=== PATIENT | female | born 1940 | race Caucasian/White ===

== ENCOUNTER 2016-10-28 13:50 | Inpatient (IN) | payer MEDICARE ==
[~2016-10-28] VITALS: Ht 158.8 cm; Wt 121.0 kg
[2016-10-29] MEDS ORDERED: ISOS30TA3 PO (14:31)
[2016-10-29] MEDS ORDERED: TEMA30CA PO (14:31)
[2016-10-29] MEDS ORDERED: GABA100C4 PO (14:31)
[2016-10-29] MEDS ORDERED: OMEG1CAP28 PO (14:31)
[2016-10-29] MEDS ORDERED: METO100T PO (14:31)
[2016-10-29] MEDS ORDERED: OXYB5TAB10 PO (14:31)
[2016-10-29] MEDS ORDERED: FLUO20CA4 PO (14:31)
[2016-10-29] MEDS ORDERED: NITR1SUB3 SL (14:31)
[2016-10-29] MEDS ORDERED: SACC1CAP3 PO (14:31)
[2016-10-29] MEDS ORDERED: ESTR1TAB PO (14:31)
[2016-10-29] MEDS ORDERED: METH1TAB2 PO (14:31)
[2016-10-29] MEDS ORDERED: PANT40TA3 PO (14:31)
[2016-10-29] MEDS ORDERED: CLON0.5T PO (14:31)
[2016-10-29] MEDS ORDERED: SIMV40TA PO (14:31)
[2016-10-29] MEDS ORDERED: HYDR-3583 PO (14:31)
[2016-10-29] MEDS ORDERED: LISI20TA3 PO (14:31)
[2016-10-29] MEDS ORDERED: VITA100T PO (14:37)
[2016-10-29] MEDS ORDERED: UBIQ1CAP4 PO (14:37)
[2016-10-29] MEDS ORDERED: MULT-135 PO (14:37)
[2016-10-29] MEDS ORDERED: GLUCTAB6 PO (14:37)
[2016-10-29] MEDS ORDERED: VITA400C5 PO (14:37)
[2016-10-29] MEDS ORDERED: [UNRECOGNIZED DRUG - CODE] PO (14:37)
[2016-10-29] MEDS ORDERED: CHOL400D2 PO (14:37)
[2016-10-29] MEDS ORDERED: MSM1000C PO (14:37)
[2016-10-29] MEDS ORDERED: CRANCAP2 PO (14:37)
[2016-10-29] MEDS ORDERED: ASPI1TAB69 PO (14:37)
[2016-10-29] MEDS ORDERED: CALCTAB7 PO (14:37)
[2016-11-04] MEDS ORDERED: CHLORHEXIDINE GLUCONATE 2 % 1 PACK (2 CLOTHS) TOPICAL PRN (10:00)
[2016-11-04] MEDS ORDERED: VANCOMYCIN 1000 MG/NS 250 ML (for <70 kg) IV SCH ×2 (10:00)
[2016-11-04] MEDS ORDERED: POVIDONE IODINE 5% (ANTISEPSIS KIT) 4 APPLICATIONS EACH NARE PRN (10:00)
[2016-11-04] MEDS ORDERED: CHLORHEXIDINE GLUCONATE 4% SOLN 120 ML BTL TOPICAL SCH (10:00)
[2016-11-04] MEDS ORDERED: INSULIN HUMAN REGULAR 1,000 UNITS/10 ML VIAL SQ PRN (10:00)
[2016-11-04] MEDS ORDERED: SODIUM CHLORID 0.9% 500 ML IV PRN (10:00)
[2016-11-04] MEDS ORDERED: ceFAZolin 2 GM PREMIX 50 ML IV SCH (10:00)
[2016-11-04] MEDS ORDERED: METOPROLOL TARTRATE 25 MG TAB PO PRN (10:00)
[2016-11-04] MEDS ORDERED: LACTATED RINGER'S 1000 ML IV PRN (10:00)
[2016-11-04 10:28] VITALS: BP 161/72; PULSE 59; RESP 20; TEMP 97.9; O2SAT 96
[2016-11-04] MEDS ORDERED: VITA100T54 PO (10:54)
[2016-11-04] MEDS ORDERED: GENTAMICIN SULFATE 80 MG/2 ML VIAL ONE (11:58)
[2016-11-04] MEDS ORDERED: MIDAZOLAM HCL 2 MG/2 ML VIAL ONE ×2 (11:59→18:02)
[2016-11-04] MEDS ORDERED: FAMOTIDINE 20 MG/2 ML VIAL ONE (11:59)
[2016-11-04] MEDS ORDERED: DEXAMETHASONE SOD PHOS 4 MG/ML VIAL ONE (11:59)
[2016-11-04] MEDS ORDERED: NEOSTIGMINE 3 MG/3 ML SYR IV ONE (12:00)
[2016-11-04] MEDS ORDERED: PROPOFOL 200 MG/20 ML AMP IV ONE (12:00)
[2016-11-04] MEDS ORDERED: ONDANSETRON HCL 4 MG/2 ML VIAL IV PUSH ONE (12:00)
[2016-11-04] MEDS ORDERED: LACTATED RINGER'S 1000 ML INJ 1,000 ML IV ONE (12:00)
[2016-11-04] MEDS ORDERED: ACETAMINOPHEN 1000 MG/100 ML VIAL IV ONE (12:10)
[2016-11-04] MEDS ORDERED: NITROGLYCERIN 0.4 MG SL 25 TABS/BTL SL PRN (14:15)
[2016-11-04] MEDS ORDERED: TEMAZEPAM 15 MG CAP PO PRN (14:15)
[2016-11-04] MEDS ORDERED: BUPIVACAINE/EPINEPHRINE 0.25% PF 30 ML VIAL INFIL ONE (14:17)
--- NOTE | 2016-11-04 15:52 | PD.OP ---
cc: Sundeep Gonzalez MD; Tom Gonzalez MD Operative Report Date of Surgery: Nov 04, 2016 Preoperative Diagnosis: Cervical spinal stenosis. Cervical myelopathy. Cervical radiculopathy. Osteophyte disc complex C4 5, C5 6, C6 7. Myelomalacia, cervical spine Postoperative Diagnosis: Same Procedure: Anterior cervical decompression and bilateral foraminotomies, C4 5. Anterior cervical decompression and bilateral foraminotomy, C5 6. Anterocervical decompression and bilateral foraminotomies, C6 7. Left anterior iliac crest bone graft Anesthesia: Gen. Surgeon: Tom Gonzalez Management Scientist(s): EUNICE Darling Operation and Findings: EBL: 600 cc INDICATIONS: This patient is a 76-year-old female whose developing significant cervical stenosis with a cervical myelopathy loss of balance with a gait disturbance and significant weakness into the arms. He presents for surgical decompression and fusion NOTE: oSnia Darling PA-C was present for the entire surgical procedure as my first coat sander. In my medical opinion her skill and care was necessary for proper management of this patient PROCEDURE: The patient was brought to the operating room and anesthetized in the supine position. This patient was positioned supine on the radiolucent table. All pressure points were protected in the anterior cervical spine and iliac crest was scrubbed with alcohol followed by Hibiclens followed by ChloraPrep. A timeout was done and antibiotics were given within 1 hour time window. Lateral radiographic images were used identifying the proper level. A right anterior incision was made in line with skin creases. The platysma was opened in line with the incision. Deep dissection continued in the interval between the carotid sheath and the esophagus. The longus-coli muscles were lifted on both sides and retractors were positioned allowing good exposure. Lateral radiographic images were used to identify the proper level. Drasco style interosseous pins were placed at C4 and 5 allowing exposure to that level. The microscope was rolled into the field. A total discectomy was accomplished and posterior osteophytes were removed. The posterior longitudinal ligament and annulus was taken down. Bilateral foraminotomies were accomplished. The endplates were squared up anticipating later bone grafting. A blunt probe could be placed out each foramen without evidence of nerve root compromise. The C4 pin was placed down to C6. An anterior exposure was accomplished. We performed a total discectomy with excision of the posterior annulus and posterior longitudinal ligament. Bilateral foraminotomies were accomplished. Osteophytes were removed. The endplates were squared up anticipating later bone grafting. A blunt probe could be placed out each foramen without evidence of nerve root compromise. The C5 pin was placed down to C7. An anterior exposure was accomplished. We performed a total discectomy with excision of the posterior annulus and posterior longitudinal ligament. Bilateral foraminotomies were accomplished. Osteophytes were removed. The endplates were squared up anticipating later bone grafting. A blunt probe could be placed out each foramen without evidence of nerve root compromise. The left iliac crest was approached. A small stab incision was made allowing percutaneous access to the anterior iliac crest. Multiple cores of cancellous bone were harvested and taken to the back table to be used for later bone grafting. The wound was irrigated anesthetized and closed with 4-0 Vicryl followed by Dermabond. The case was turned over to Dr. Sundeep Gonzalez for fusion and instrumentation per his dictation. FINDINGS: There was evidence of severe stenosis at all 3 levels. The most significant disc herniation was found at the C6-C7 level. There was a severe osteophyte disc complex necessitating a partial corpectomy of C5 at the C5 6 level. The final reconstruction was quite satisfactory. The decompression was very satisfactory. No complication was appreciated. NOTE: This surgery was performed in 2 parts. The first part was the neurosurgical decompression performed under the variable power stereo microscope by the undersigned in addition to the bone graft. The second portion of the surgery will be performed by the orthopedic spine component by co -surgeon, Dr. Sundeep Gonzalez for the anterior fusion with interbody cage and anterior plate. The skill of 2 surgeons was necessary to perform distinct separate procedural services as dictated above and dictated in the following operative note by Dr. Sundeep Gonzalez. Tom Gonzalez MD Nov 04, 2016 15:52
[2016-11-04] MEDS ORDERED: ONDANSETRON HCL 4 MG/2 ML VIAL IV PRN (17:30)
[2016-11-04] MEDS ORDERED: ACETAMINOPHEN/HYDROcodone 325 MG/7.5 MG TAB PO PRN (17:30)
[2016-11-04] MEDS ORDERED: SODIUM CHLORIDE 0.9% FLUSH 10 ML FLUSH IV FLUSH PRN (17:30)
[2016-11-04] MEDS ORDERED: NALOXONE HCL 0.4 MG/ML AMP IV PRN (17:30)
[2016-11-04] MEDS ORDERED: ALUMINUM/MAGNESIUM/SIMETH 30 ML CUP PO PRN (17:30)
[2016-11-04] MEDS ORDERED: Post-op Orders (for Pharmacy) MISC XX ONE (17:39)
--- NOTE | 2016-11-04 17:46 | HHI.PR ---
Immediate Post Op Note Procedure Date: Nov 04, 2016 Pre Op Diagnosis: (1) Cervical myelopathy (2) Cervical spinal stenosis Post Op Diagnosis: (1) Cervical myelopathy (2) Cervical spinal stenosis Surgeon: Sundeep Gonzalez M.D. Bench Carpenter(s): Sofia Slaughter PA-C Procedure: C4-7 ACDF Complications: none Estimated blood loss: 700 cc Anesthesia: General Drains: Other (round zuri drain) Patient to: PACU Patient Condition: Good Implant/Devices: SEE IMPLANT LOG (if applicable) Date/Time of Procedure: SEE SURGICAL CARE RECORD Sundeep Gonzalez MD Nov 04, 2016 17:46
[2016-11-04] MEDS ORDERED: fentaNYL CITRATE 250 MCG/5 ML AMP ONE (18:02)
[2016-11-04] MEDS ORDERED: *RESP: ALBUTEROL 2.5 MG/3 ML NEB (PRN) PERIprocedural Use ONLY NEB ONE (18:21)
[2016-11-04] MEDS ORDERED: *ONDANSETRON 4 MG VIAL PERIprocedural Use ONLY ONE (18:21)
[2016-11-04] MEDS ORDERED: *morphine SULFATE 8 MG/ML PERIprocedure ONLY ONE (18:21)
[2016-11-04 18:26] LABS: HEMATOCRIT 39.8 % (35.0-46.0); MEAN CORPUSCULAR HEMOGLOBIN 30.7 PG (27.0-34.0); PLATELET COUNT 204 TH/MM3 (150-450); RED BLOOD COUNT 4.29 MIL/MM3 (4.00-5.30); RED CELL DISTRIBUTION WIDTH 13.2 % (11.6-17.2); REVIEW FLAG FINAL; WHITE BLOOD COUNT 15.2 TH/MM3 (4.0-11.0)
[2016-11-04] MEDS: LACTATED RINGER'S 1000 ML INJ 1,000 ML IV SCH (18:29)
--- NOTE | 2016-11-04 18:48 | RADRPT ---
EXAM DATE/TIME: 11/04/2016 16:56 [facility] COMPARISON: No previous studies available for comparison. INDICATIONS : C4-5, 5-6, 6-7 fusion. MEDICAL HISTORY : None. SURGICAL HISTORY : None. ENCOUNTER: Initial ACUITY: 1 day PAIN SCORE: Non-responsive. LOCATION: Cervical spine. FINDINGS: Anterior cervical fusion hardware is noted from C4 through C7. CONCLUSION: Anterior cervical fusion hardware from C4 through C7. Noble Menjivar MD on November 04, 2016 at 18:40 Board Certified Radiologist. This report was verified electronically.
[2016-11-04 20:00] VITALS: BP 134/64; PULSE 94; RESP 17; TEMP 96.1; O2SAT 98
[2016-11-04] MEDS: clonazePAM 0.5 MG TAB PO SCH (20:09)
[2016-11-04] MEDS: GABAPENTIN 100 MG CAP PO SCH (20:09)
[2016-11-04] MEDS: SODIUM CHLORIDE 0.9% FLUSH 10 ML FLUSH IV FLUSH SCH (20:09)
[2016-11-04] MEDS: PRAVASTATIN SOD 80 MG TAB PO SCH (20:09)
[2016-11-04] MEDS: MORPHINE SULFATE 8 MG/ML INJ IV PUSH PRN (20:10)
[2016-11-04 21:08] VITALS: O2SAT 96
[2016-11-04] MEDS: ACETAMINOPHEN/HYDROcodone 325 MG/7.5 MG TAB PO PRN (22:10)
[2016-11-05] VITALS (8 sets, daily range): BP systolic 100–131; BP diastolic 45–64; PULSE 70–92; RESP 16–20; TEMP 95.9–98.9; O2SAT 94–97
[2016-11-05] MEDS: LACTATED RINGER'S 1000 ML INJ 1,000 ML IV SCH ×2 (04:32→19:00)
[2016-11-05] MEDS: ACETAMINOPHEN/HYDROcodone 325 MG/7.5 MG TAB PO PRN ×4 (04:34→23:56)
[2016-11-05 06:53] LABS: HEMATOCRIT 31.9 % (35.0-46.0); MEAN CELL VOLUME 91.8 FL (80.0-100.0); MEAN CORPUSCULAR HEMOGLOBIN 32.3 PG (27.0-34.0); MEAN CORPUSCULAR HGB CONC 35.2 % (32.0-36.0); PLATELET COUNT 242 TH/MM3 (150-450); RED BLOOD COUNT 3.48 MIL/MM3 (4.00-5.30); RED CELL DISTRIBUTION WIDTH 13.4 % (11.6-17.2); REVIEW FLAG FINAL
--- NOTE | 2016-11-05 07:06 | PD.ORT.PN ---
Subjective Subjective Remarks complains of post op neck pain she states she has improvement of weakness involving arms and legs Objective Vitals Vital Signs Date Time Temp Pulse Resp B/P Pulse Ox O2 Delivery O2 Flow Rate FiO2 11/05/16 04:00 98.5 80 16 121/55 95 11/05/16 00:00 98.7 92 16 131/64 97 11/04/16 21:08 96 Nasal Cannula 2.00 11/04/16 20:00 96.1 94 17 134/64 98 11/04/16 18:51 Nasal Cannula 11/04/16 18:30 77 14 157/80 98 Nasal Cannula 3 11/04/16 18:15 83 15 159/71 98 Nasal Cannula 3 11/04/16 18:00 86 16 172/89 99 T-Piece 8 11/04/16 17:44 97.7 83 15 194/89 98 T-Piece 8 11/04/16 10:28 97.9 59 20 161/72 96 I/O 11/04/16 11/04/16 11/04/16 11/05/16 11/05/16 11/05/16 07:00 15:00 23:00 07:00 15:00 23:00 Intake Total 2422 ml 1107 ml Output Total 2055 ml 280 ml Balance 367 ml 827 ml Intake Oral 240 ml 240 ml IV Total 182 ml 867 ml Other 2000 ml Output Urine Total 825 ml 250 ml Drainage Total 30 ml 30 ml Estimated Blood Loss 700 ml Other 500 ml # Bowel Movements 0 0 Result Diagram: 11/05/16 0527 Objective Remarks seen by Dr. Sundeep Gonzalez Red[place] collar in place, dressing dry and intact left upper and motor is +5/5 right upper, right elbow 5/5, wrist dorsiflexion 1/5, elbow extension 4/5 positive babinski bilaterally Assessment & Plan Assessment and Plan POD #1 s/p C4-7 ACDF, hx of cervical myelopathy with severe RUE weakness d/c drain today [place] collar x 8 weeks up and out of bed anticipate discharge Tuesday to [facility] Sofia Slaughter Nov 05, 2016 07:06
[2016-11-05] MEDS: clonazePAM 0.5 MG TAB PO SCH ×2 (09:00→20:24)
[2016-11-05] MEDS: FLUoxetine HCL 20 MG CAP PO SCH (09:00)
[2016-11-05] MEDS: SODIUM CHLORIDE 0.9% FLUSH 10 ML FLUSH IV FLUSH SCH ×2 (09:00→20:25)
[2016-11-05] MEDS ORDERED: ESTRADIOL 1 MG TAB PO SCH (09:00)
[2016-11-05] MEDS ORDERED: NON-FORMULARY DRUG (Lisinopril-Hctz 1 TAB) PO SCH (09:00)
[2016-11-05] MEDS: ISOSORBIDE MONONITRATE 30 MG TAB PO SCH (09:00)
[2016-11-05] MEDS: MULTIVITAMINS/MINERALS THERAPEUTIC TAB PO SCH ×2 (09:00→20:24)
[2016-11-05] MEDS: METOPROLOL TARTRATE 100 MG TAB PO SCH (09:00)
[2016-11-05] MEDS: PANTOPRAZOLE SOD 40 MG DELAYED RELEASE TAB PO SCH (09:00)
[2016-11-05] MEDS: OXYBUTYNIN CHLORIDE 5 MG TAB PO SCH (09:00)
[2016-11-05] MEDS: GABAPENTIN 100 MG CAP PO SCH ×3 (09:00→17:51)
[2016-11-05] MEDS: LISINOPRIL 20 MG TAB PO SCH (09:00)
[2016-11-05] MEDS: HYDROCHLOROTHIAZIDE 25 MG TAB PO SCH (09:01)
--- NOTE | 2016-11-05 11:43 | MB ---
cc: ODALYS BURROUGHS DATE OF CONSULTATION: 11/05/2016 DATE OF : 1940 REASON FOR CONSULTATION: Medical management. HISTORY OF PRESENT ILLNESS: This is a morbidly obese, white female, with multi medical comorbidities chiefly involving her joints and severe arthritis, the patient was seen and examined per her new orthopedic doctor which did an MRI. The patient has a history of cervical myelopathy with severe right upper extremity weakness, the patient is now status post anterior cervical diskectomy and fusion day one, C4 through C7. The patient currently has a [place] collar on, she has a drain in which is draining small amounts of red serous s drainage, she is currently up in the chair for the first time. She does have generalized complaints of aches and pains. The patient is alert, able to respond to simple questions, she is a fair historian. PAST MEDICAL HISTORY: 1. Severe arthritis. 2. Depression. 3. Cardiovascular disease. 4. Hyperlipidemia. 5. Morbid obesity. 6. Gastroesophageal reflux disease. 7. Incontinence. 8. Bladder sling. 9. Hypertension. 10. Right sided weakness due to head injury as a child. PAST SURGICAL HISTORY: 1. Tubal ligation. 2. section. 3. Hysterectomy. 4. Cardiac catheterization. 5. Bilateral cataracts Removal. 6. AP repair. 7. Oral surgery with caps. ALLERGIES NO KNOWN DRUG ALLERGIES MEDICATIONS: 1. Reported calcium. 2. Chondroitin 3. Methosulfate methylene 4. Multivitamins 5. Selenium 6. Vitamin E 7. Vitamin B12 8. Aspirin 9. Vitamin D 10. Co-Q-10. 11. Cranberry 12. Methenamine 13. Probiotics 14. Ditropan 15. Gabapentin 16. Hydrocodone 17. Nitroglycerin subinguinal 18. Propanzole 19. Isosorbide 20. Restoril 21. Simvastatin 22. Metoprolol 23. Leedey 3 24. Lisinopril 25. Fluoxetine 26. Estradiol 27. Clonazepam SOCIAL HISTORY: , currently lives at home with her , denies any alcohol, tobacco or illicit drug use. FAMILY HISTORY: Cancer and Parkinson's disease. REVIEW OF SYSTEMS 12 point review of systems was obtained, positives include her arthralgia, limited mobility and range of motion. Chronic pain. Depression, constipation, other review of systems unremarkable. PHYSICAL EXAMINATION: VITAL SIGNS: Temperature 98.5, pulse 84, respirations 17, blood pressure 125/58, o2 saturations 95, two liters nasal cannula. IN GENERAL: Morbidly obese, white female, looks to be her stated age, sitting up in the chair, alert, answering simple questions, talkative. HEAD, EYES, EARS, NOSE, AND THROAT: Atraumatic, normocephalic, Pupils equal, round, reactive to light and accommodation. NECK: The neck is thick, supple, mucous membranes are pink and moist. No scleral icterus. CARDIOVASCULAR SYSTEM: Regular rate and rhythm, no murmurs, rubs, or gallops. RESPIRATORY: Low air volumes but essentially clear anteriorly and posteriorly. GASTROINTESTINAL: Abdomen is obese, round, soft, nontender, nondistended. MUSCULOSKELETAL: Mild deformity noted in her right hand and wrist area, status post injury as a child. Trace of edema. Mild contracture to the right hand. NEUROLOGICAL: Awake and alert, speech is clear. PSYCHIATRIC: Appropriate mood and affect. DIAGNOSTIC DATA: White count is 13, Red blood cell 3.48, hemoglobin 11.3, hematocrit 31.9, platelet count 242, IMAGING STUDIES: Show cervical spine x-ray to have anterior surgical fusion hardware, C4 through C7. ASSESSMENT AND PLAN: 1. Cervical myelopathy with spinal stenosis. Status post Anterior cervical diskectomy and fusion C4 through C7. 2. Hypertension 3. Gastroesophageal reflux disease. 4. Morbid obesity. 5. Anemia, mild. 6. Depression. 7. Osteoarthritis. PLAN: To monitor her labs. Vital signs for any fever, abnormal heart rates, blood pressure or dyspnea. Currently the patient will need assistance with activity and encouraged to be out of bed. PT/OT will be needed for her mobility, activities of daily living and encouragement. We will check labs in the morning. B-type natriuretic peptide and monitor her for any abnormal chemistry levels. The patient will have vital signs q four hours and as warranted. Deep venous thrombosis prophylaxis with sequential compression devices. Deep venous thrombosis prophylaxis with Protonix and reconcile her medications. The patient will receive her post operative antibiotics. Orthopedics will manage her pain and any postoperative needs. We will follow. Odalys Burroughs MD DICTATED BY: IVANNA Zafar JP/mk /9:58 AM /10:59 AM Patient seen and examined as above Chart reviewed Medication labs and radiological data reviewed Notes reviewed Plan of care discussed with FIELD MARKETING SPECIALIST Discussed with RN Discussed with patient ABDIEL
[2016-11-05] MEDS: PRAVASTATIN SOD 80 MG TAB PO SCH (20:24)
[2016-11-05] MEDS: SENNOSIDES 8.6 MG TAB PO SCH (20:24)
[2016-11-05] MEDS: MAGNESIUM HYDROXIDE SUSP 30 ML CUP PO SCH (20:25)
[2016-11-06] VITALS: BP 150/67; PULSE 81; RESP 22; TEMP 98.9; O2SAT 91
[2016-11-06] MEDS: MORPHINE SULFATE 8 MG/ML INJ IV PUSH PRN ×2 (02:16→08:38)
[2016-11-06] MEDS: ACETAMINOPHEN/HYDROcodone 325 MG/7.5 MG TAB PO PRN ×4 (06:06→23:34)
[2016-11-06] MEDS: LACTATED RINGER'S 1000 ML INJ 1,000 ML IV SCH (07:30)
--- NOTE | 2016-11-06 07:37 | PD.ORT.PN ---
Subjective Post Op Day #: 2 Subjective Remarks Patient resting in bed in NAD. Patient had mild to moderate pain last night with difficulty sleeping. Objective Vitals Vital Signs Date Time Temp Pulse Resp B/P Pulse Ox O2 Delivery O2 Flow Rate FiO2 11/06/16 00:00 98.9 81 22 150/67 91 11/05/16 21:00 97 11/05/16 20:00 98.5 79 20 105/56 95 11/05/16 16:00 98.9 70 17 100/45 94 11/05/16 12:00 97.7 77 18 106/48 95 11/05/16 08:10 Room Air 11/05/16 08:00 95.9 84 17 125/58 95 11/05/16 07:49 96 Nasal Cannula 2.00 I/O 11/05/16 11/05/16 11/05/16 11/06/16 11/06/16 11/06/16 07:00 15:00 23:00 07:00 15:00 23:00 Intake Total 1107 ml 530 ml 780 ml 480 ml Output Total 280 ml 400 ml Balance 827 ml 130 ml 780 ml 480 ml Intake Oral 240 ml 480 ml 780 ml 480 ml IV Total 867 ml 50 ml Output Urine Total 250 ml 400 ml Drainage Total 30 ml # Voids 1 2 1 # Bowel Movements 0 0 0 Result Diagram: 11/05/16 0527 Objective Remarks Harrison collar in place, dressing clean, dry and intact left upper and motor is +5/5 right upper, right elbow 5/5, wrist dorsiflexion 1/5, elbow extension 4/5 positive babinski bilaterally EHL/APB/ABDELRAHMAN intact + SILT. 2+ radial pulse Assessment & Plan Ortho Post Op Day #: 2 Problem List: Assessment and Plan POD #2 s/p C4-7 ACDF, hx of cervical myelopathy with severe RUE weakness Drain discontinued. [place] collar x 8 weeks up and out of bed anticipate discharge Tuesday to SNF ([facility] or [facility]) Kings Oliveira Nov 06, 2016 07:37
[2016-11-06 07:40] LABS: BICARBONATE 30.1 MEQ/L (21.0-32.0)
[2016-11-06] MEDS: LISINOPRIL 20 MG TAB PO SCH (08:31)
[2016-11-06] MEDS: HYDROCHLOROTHIAZIDE 25 MG TAB PO SCH (08:31)
[2016-11-06] MEDS: OXYBUTYNIN CHLORIDE 5 MG TAB PO SCH (08:32)
[2016-11-06] MEDS: PANTOPRAZOLE SOD 40 MG DELAYED RELEASE TAB PO SCH (08:32)
[2016-11-06] MEDS: ISOSORBIDE MONONITRATE 30 MG TAB PO SCH (08:32)
[2016-11-06] MEDS: SENNOSIDES 8.6 MG TAB PO SCH (08:32)
[2016-11-06] MEDS: METOPROLOL TARTRATE 100 MG TAB PO SCH (08:32)
[2016-11-06] MEDS: SODIUM CHLORIDE 0.9% FLUSH 10 ML FLUSH IV FLUSH SCH ×3 (08:32→22:44)
[2016-11-06] MEDS: clonazePAM 0.5 MG TAB PO SCH ×2 (08:32→22:39)
[2016-11-06] MEDS: MULTIVITAMINS/MINERALS THERAPEUTIC TAB PO SCH ×2 (08:32→22:39)
[2016-11-06] MEDS: GABAPENTIN 100 MG CAP PO SCH ×3 (08:32→17:30)
[2016-11-06] MEDS: MAGNESIUM HYDROXIDE SUSP 30 ML CUP PO SCH ×2 (08:32→22:39)
[2016-11-06] MEDS: FLUoxetine HCL 20 MG CAP PO SCH (08:32)
[2016-11-06 08:40] VITALS: BP 136/63; PULSE 73; RESP 17; TEMP 97.9; O2SAT 93
[2016-11-06 10:40] VITALS: O2SAT 92
--- NOTE | 2016-11-06 11:33 | HHI.PR ---
Subjective Subjective Remarks c/o increasing neck and shoulder pain, Morphine and PO narco not helping no cp no sob no fever was able to get out of bed with PT yesterday Review of Systems Constitutional Constitutional Remarks 12 POINT ROS COMPLETED, NEG EXCEPT NOTED ABOVE Vitals/Results Intake & Output 11/05/16 11/05/16 11/06/16 15:00 23:00 07:00 Intake Total 530 ml 780 ml 480 ml Output Total 400 ml Balance 130 ml 780 ml 480 ml Intake Oral 480 ml 780 ml 480 ml IV Total 50 ml Output Urine Total 400 ml # Voids 1 2 1 # Bowel Movements 0 0 Vital Signs Vital Signs Date Time Temp Pulse Resp B/P Pulse Ox O2 Delivery O2 Flow Rate FiO2 11/06/16 10:40 92 21 11/06/16 08:53 92 Room Air 11/06/16 08:40 97.9 73 17 136/63 93 11/06/16 00:00 98.9 81 22 150/67 91 11/05/16 21:00 97 11/05/16 20:00 98.5 79 20 105/56 95 11/05/16 16:00 98.9 70 17 100/45 94 11/05/16 12:00 97.7 77 18 106/48 95 CBC/BMP: 11/05/16 0527 11/06/16 0555 Lab Results Laboratory Tests Test 11/06/16 05:55 Sodium Level 143 MEQ/L Potassium Level 4.0 MEQ/L Chloride Level 105 MEQ/L Carbon Dioxide Level 30.1 MEQ/L Anion Gap 8 MEQ/L Blood Urea Nitrogen 22 MG/DL Creatinine 0.92 MG/DL Estimat Glomerular Filtration 59 ML/MIN Rate Random Glucose 131 MG/DL Calcium Level 8.3 MG/DL Physical Exam General General Appearance: Well Developed, Comfortable, Obese Eyes Eye Exam: Pupils Equal, Pupils Reactive Ears & Nose Ears & Nose Exam: Nasal Mucosa [place] Throat Throat Exam: Oral Mucosa [place] & Moist Neck Neck Exam: Trachea Midline Neck Remarks anterior neck dressing D/I neck brace Pulmonary Resp Exam: Breath Sounds Equal, No Distress Cardiology CV Exam: Regular Gastrointestinal/Abdomen GI Exam: Soft, Non-Tender, Bowel Sounds Present, Non-Distended Musculoskeletal MS Remarks right sided hemplegia, right wrist contracture Integumentary Skin Exam: Warm, Dry Extremeties Extremities Exam: Pedal Pulses Palpable, Moderate Edema Neurologic Neuro Exam: Alert, Awake, Oriented, Speech Clear Psychiatric Psych Exam: Appropriate Responses VTE Prophylaxis VTE Prophylaxis Device: SCDs PUD Prophylasis PUD Prophylaxis: Protonix Assessment/Plan Problem List: (1) Anterior cervical diskectomy and fusion c4-c7 (2) Cervical myelopathy (3) Cervical spinal stenosis (4) Hypertension (5) GERD (gastroesophageal reflux disease) (6) Depression (7) CAD (coronary artery disease) (8) Obesity (9) Osteoarthritis Assessment/Plan Cervical myelopathy with spinal stenosis. Status post Anterior cervical diskectomy and fusion C4 through C7. continue with post op care pain management, add Toradol PT for OOB Continue with home meds BP control SCDs for DVT prophylaxis Labs reviewed, WBC elevated, but trending down cont. IS OOB with PT D/W RN D/W Dr. Burroughs D/W pt This pt. was seen by myself and Dr. Burroughs, this note is written on his behalf Problem Qualifiers (1) Hypertension: Qualified Code: I10 - Essential hypertension (2) GERD (gastroesophageal reflux disease): Qualified Code: K21.9 - Gastroesophageal reflux disease, esophagitis presence not specified (3) Depression: Qualified Code: F32.9 - Depression, unspecified depression type (4) CAD (coronary artery disease): Qualified Code: I25.10 - Coronary artery disease involving [place] coronary artery of [place] heart without angina pectoris (5) Obesity: Qualified Code: E66.9 - Obesity, unspecified obesity severity, unspecified obesity type (6) Osteoarthritis: Qualified Code: M19.90 - Osteoarthritis, unspecified osteoarthritis type, unspecified site Eliana Levin [facility] Nov 06, 2016 11:32
[2016-11-06] MEDS: KETOROLAC TROMETHAMINE 10 MG TAB PO PRN ×2 (11:52→17:30)
[2016-11-06 11:53] VITALS: BP 125/58; PULSE 73; RESP 18; TEMP 98.7; O2SAT 92
[2016-11-06 16:21] VITALS: BP 118/59; PULSE 65; RESP 18; TEMP 97.2; O2SAT 94
[2016-11-06 20:00] VITALS: BP 126/62; PULSE 70; RESP 20; TEMP 96.6; O2SAT 94
[2016-11-06] MEDS: PRAVASTATIN SOD 80 MG TAB PO SCH (22:39)
[2016-11-07] VITALS: BP 104/47; PULSE 70; RESP 16; TEMP 96.8; O2SAT 96
[2016-11-07] MEDS: ACETAMINOPHEN/HYDROcodone 325 MG/7.5 MG TAB PO PRN ×2 (06:37→12:06)
[2016-11-07 08:00] VITALS: BP 127/60; PULSE 68; RESP 16; TEMP 96.8; O2SAT 92
[2016-11-07] MEDS: ISOSORBIDE MONONITRATE 30 MG TAB PO SCH (08:22)
[2016-11-07] MEDS: GABAPENTIN 100 MG CAP PO SCH ×2 (08:22→12:05)
[2016-11-07] MEDS: PANTOPRAZOLE SOD 40 MG DELAYED RELEASE TAB PO SCH (08:22)
[2016-11-07] MEDS: clonazePAM 0.5 MG TAB PO SCH (08:22)
[2016-11-07] MEDS: HYDROCHLOROTHIAZIDE 25 MG TAB PO SCH (08:22)
[2016-11-07] MEDS: SENNOSIDES 8.6 MG TAB PO SCH (08:22)
[2016-11-07] MEDS: OXYBUTYNIN CHLORIDE 5 MG TAB PO SCH (08:22)
[2016-11-07] MEDS: MULTIVITAMINS/MINERALS THERAPEUTIC TAB PO SCH (08:22)
[2016-11-07] MEDS: MAGNESIUM HYDROXIDE SUSP 30 ML CUP PO SCH (08:23)
[2016-11-07] MEDS: KETOROLAC TROMETHAMINE 10 MG TAB PO PRN (08:23)
[2016-11-07] MEDS: LISINOPRIL 20 MG TAB PO SCH (08:23)
[2016-11-07] MEDS: FLUoxetine HCL 20 MG CAP PO SCH (08:23)
[2016-11-07] MEDS: METOPROLOL TARTRATE 100 MG TAB PO SCH (08:23)
[2016-11-07] MEDS: SODIUM CHLORIDE 0.9% FLUSH 10 ML FLUSH IV FLUSH SCH (08:25)
--- NOTE | 2016-11-07 10:26 | HHI.PR ---
Subjective Subjective Remarks shoulder and arm pain improved now having BMs no cp no sob no fever pleasant, worked with PT yesterday Review of Systems Constitutional Constitutional Remarks 12 POINT ROS COMPLETED, NEG EXCEPT NOTED ABOVE Vitals/Results Intake & Output 11/06/16 11/06/16 11/07/16 15:00 23:00 07:00 Intake Total 480 ml 780 ml 240 ml Balance 480 ml 780 ml 240 ml Intake Oral 480 ml 780 ml 240 ml # Voids 3 2 1 # Bowel Movements 0 0 Vital Signs Vital Signs Date Time Temp Pulse Resp B/P Pulse Ox O2 Delivery O2 Flow Rate FiO2 11/07/16 08:46 Room Air 11/07/16 08:00 96.8 68 16 127/60 92 11/07/16 00:00 96.8 70 16 104/47 96 11/06/16 20:00 96.6 70 20 126/62 94 11/06/16 16:21 97.2 65 18 118/59 94 11/06/16 16:21 95 Room Air 11/06/16 14:55 92 Room Air 11/06/16 11:53 98.7 73 18 125/58 92 11/06/16 10:40 92 21 CBC/BMP: 11/05/16 0527 11/06/16 0555 Physical Exam General General Appearance: Well Developed, Comfortable, Obese Eyes Eye Exam: Pupils Equal, Pupils Reactive Ears & Nose Ears & Nose Exam: Nasal Mucosa [place] Throat Throat Exam: Oral Mucosa [place] & Moist Neck Neck Exam: Trachea Midline Neck Remarks anterior neck dressing D/I neck brace Pulmonary Resp Exam: Breath Sounds Equal, No Distress Cardiology CV Exam: Regular Gastrointestinal/Abdomen GI Exam: Soft, Non-Tender, Bowel Sounds Present, Non-Distended Musculoskeletal MS Remarks right sided hemplegia, right wrist contracture Integumentary Skin Exam: Warm, Dry Extremeties Extremities Exam: Pedal Pulses Palpable, Moderate Edema Neurologic Neuro Exam: Alert, Awake, Oriented, Speech Clear Psychiatric Psych Exam: Appropriate Responses VTE Prophylaxis VTE Prophylaxis Device: SCDs PUD Prophylasis PUD Prophylaxis: Protonix Assessment/Plan Problem List: (1) Anterior cervical diskectomy and fusion c4-c7 (2) Cervical myelopathy (3) Cervical spinal stenosis (4) Hypertension (5) GERD (gastroesophageal reflux disease) (6) Depression (7) CAD (coronary artery disease) (8) Obesity (9) Osteoarthritis Assessment/Plan Cervical myelopathy with spinal stenosis. Status post Anterior cervical diskectomy and fusion C4 through C7. continue with post op care pain management, continue toradol PT for OOB Continue with home meds BP control SCDs for DVT prophylaxis cont. IS OOB with PT Ok for DC to SNF poss. leaving today to [facility] D/W RN D/W Dr. Burroughs D/W pt This pt. was seen by myself and Dr. Burroughs, this note is written on his behalf Problem Qualifiers (1) Hypertension: Qualified Code: I10 - Essential hypertension (2) GERD (gastroesophageal reflux disease): Qualified Code: K21.9 - Gastroesophageal reflux disease, esophagitis presence not specified (3) Depression: Qualified Code: F32.9 - Depression, unspecified depression type (4) CAD (coronary artery disease): Qualified Code: I25.10 - Coronary artery disease involving [place] coronary artery of [place] heart without angina pectoris (5) Obesity: Qualified Code: E66.9 - Obesity, unspecified obesity severity, unspecified obesity type (6) Osteoarthritis: Qualified Code: M19.90 - Osteoarthritis, unspecified osteoarthritis type, unspecified site Eliana Levin Nov 07, 2016 10:26
--- NOTE | 2016-11-07 11:14 | PD.ORT.PN ---
Subjective Post Op Day #: 3 Subjective Remarks Patient resting in bed in NAD. Patient reports minimal pain today. Objective Vitals Vital Signs Date Time Temp Pulse Resp B/P Pulse Ox O2 Delivery O2 Flow Rate FiO2 11/07/16 08:46 Room Air 11/07/16 08:00 96.8 68 16 127/60 92 11/07/16 00:00 96.8 70 16 104/47 96 11/06/16 20:00 96.6 70 20 126/62 94 11/06/16 16:21 97.2 65 18 118/59 94 11/06/16 16:21 95 Room Air 11/06/16 14:55 92 Room Air 11/06/16 11:53 98.7 73 18 125/58 92 I/O 11/06/16 11/06/16 11/06/16 11/07/16 11/07/16 11/07/16 07:00 15:00 23:00 07:00 15:00 23:00 Intake Total 480 ml 480 ml 780 ml 240 ml Balance 480 ml 480 ml 780 ml 240 ml Intake Oral 480 ml 480 ml 780 ml 240 ml # Voids 1 3 2 1 # Bowel Movements 0 0 0 1 Result Diagram: 11/05/16 0527 11/06/16 0555 Objective Remarks An[place] collar in place, dressing clean, dry and intact + NVI + SILT. Assessment & Plan Ortho Post Op Day #: 3 Problem List: Assessment and Plan POD #3 s/p C4-7 ACDF, hx of cervical myelopathy with severe RUE weakness [place] collar x 8 weeks up and out of bed Patient to be discharged to [facility] today. Kings Oliveira Nov 07, 2016 11:14
[2016-11-07] MEDS ORDERED: HYDR-3288 PO (11:42)
[2016-11-07 12:01] VITALS: BP 146/79; PULSE 65; RESP 18; TEMP 97.3; O2SAT 94
--- NOTE | 2016-11-09 12:48 | MP ---
cc: VIMAL ALVAREZ M.D., RENA M. M.D. GILLESPY, ALBERT W. MD DATE OF SURGERY 11/04/2016 PREOPERATIVE DIAGNOSIS 1. C4-5 herniated nucleus pulposus, osteophyte disk complex, spinal cord compression, spinal cord edema, spinal stenosis; C5-6 osteophyte disk complex, herniated pulposus, spinal cord compression, spinal stenosis; C6-7 osteophyte disk complex, spinal stenosis. 2. Cervical myelopathy with right greater left and cervical radiculitis and upper extremity weakness. 3. Cervical spine degenerative disc osteoarthritis 4. Morbid obesity, BMI of 46 POSTOPERATIVE DIAGNOSIS 1. C4-5 herniated nucleus pulposus, osteophyte disk complex, spinal cord compression, spinal cord edema, spinal stenosis; C5-6 osteophyte disk complex, herniated pulposus, spinal cord compression, spinal stenosis; C6-7 osteophyte disk complex, spinal stenosis. 2. Cervical myelopathy with right greater left and cervical radiculitis and upper extremity weakness. 3. Cervical spine degenerative disc osteoarthritis 4. Morbid obesity, BMI of 46 PROCEDURE C4-5, C5-6, C6-7 anterior interbody fusion; C4-5, C5-6, C6-7 SpineNet ACC anterior cervical cage; C4-C7 SpineNet Rauscher anterior spinal instrumentation SURGEON Carrie Gonzalez MD ENVIRONMENTAL MANAGEMENT SPECIALIST Sofia Slaughter PA-C SPECIMENS None ESTIMATED BLOOD LOSS 700 cc ANESTHESIA General DRAINS One CONDITION Stable PLAN OF ACTIVITY As per orders. PROCEDURE Dr. Tom Gonzalez and myself were co-surgeons. Dr. Tom Gonzalez performed the neuro decompressive procedure. He performed a C4-5, C5-6, C6-7 anterior cervical diskectomy, anterior decompression using the operative microscope. He also performed a left anterior iliac crest bone grafting. I was not present for his portion of the procedure. This is well-described in the operative note. I then, as a co-surgeon, performed the orthopedic fusion and spinal stabilization portion of the procedure described in my operative note. My kennel assistant Sofia Slaughter PA-C was present for the entire surgical case. She was medically necessary for the entire case because of the complexity of the case and to facilitate the performance of the procedure. The POCKET CUTTER at the back table was not a skill set for this case to manipulate the instruments e.g., the multiple different types of soft tissue retractors, trial implants and permanent implants. The endplates at C6-7 were prepared for fusion. The hyaline cartilage at the endplate was removed using angled curettes and burs. A five 10 x 12 ACC cage was placed in the interspace. Anterior iliac crest bone graft placed under fluoroscopic guidance for interbody fusion. The endplates at C5-6 were prepared for fusion. The hyaline cartilage endplate was removed using angled curettes and burs. A six 10 x 12 ACC cage placed in the interspace. Anterior iliac crest bone graft placed using fluoroscopic guidance for interbody fusion. At C4-5, the endplates were prepared for fusion. The hyaline cartilage removed using angled curettes and burs. The long osteophytes were removed using multiple different types of angled curettes, rongeurs and a bur. A 54 mm SpineNet Rauscher plate was contoured to the patient's normal cervical lordosis. Two screws were used in the vertebral body of C4, C5, C6 and C7. There was a single temporary screw that was used under fluoroscopy in the AP and lateral plane and was used to confirm a satisfactory positioning of the plate. Of note, the lateral imaging was difficult because of the patient's gross morbid obesity. Each screws were drilled. They were 14 mm length screws, 4.0 mm diameter screws, fixed angle screws and each screw had been appropriately locked to the plate. The temporary screw was removed and then the last remaining screw was inserted in that area. Intraoperative fluoroscopy in AP and lateral plane confirmed satisfactory positioning of the bone graft at C4-5, C5-6, C6-7 and satisfactory positioning of the ACC cages at C4-5 and C5-6 and C6-7, and satisfactory spinal instrumentation from C4-C7. The wound was irrigated with copious amounts of saline. The wound itself was dry. It was closed over an eighth inch Hemovac drain. The wound was closed in multiple layers using 3-0 Vicryl suture. Skin was approximated with running subcuticular 4-0 Vicryl suture. Dermabond skin glue was used on the skin. Sterile dressing applied. The patient placed in a Bly cervical orthosis. The patient tolerated the procedure well and arrived in the recovery room in stable and satisfactory condition. MD GREGG Sher/SUSANA /5:35 PM /12:28 PM
--- NOTE | 2017-01-05 08:24 | HHI.DS ---
Discharge Summary Admission Date Nov 04, 2016 at 09:16 Discharge Date: Nov 07, 2016 Admitting Diagnosis Cervical spine stenosis, spinal cord compression, HNP Diagnosis: (1) Cervical myelopathy Diagnosis: Principal (2) Cervical spinal stenosis Diagnosis: Secondary Procedures C4-7 ACDF Brief History This is a 76 year old female patient who presents with the following history. Patient has had increasing weakness involving her right upper extremity over the past six months. She was able to use a walker prior but has been in a wheelchair for the last 3-5 years due to inability to ambulate. Her neurologist ordered MRI scan of the cervical spine and cervical decompression and fusion was recommended due to the degree of cervical spine stenosis and cervical spine spinal cord compression. PE at Discharge [place] collar in place, dressing clean, dry and intact + NVI + SILT. Hospital Course Patient underwent satisfactory anesthesia by the dept of anesthesia on the date of surgery. She underwent C4-7 ACDF. She did well following the procedure. She was put in a [place] collar which she will wear for 2-3 months. She was started with physical therapy, assistive ambulation on pod #1. Patient was also seen and evaluated by medical during her hospital stay. She progressed well. Patient had no help at home and therefore was discharged to a [facility] facility for further nursing care on pod#3. Pt Condition on Discharge: Stable Discharge Disposition: Discharge to SNF Discharge Instructions Diet Instructions: As Tolerated, No Restrictions Activities You Can Perform: Weight Bearing as Sofia Oakes January 05, 2017 08:24
== END 2016-11-07 13:11 | DRG 472 ==
LOC: HSDI 11-04 09:16 → N06A 11-04 18:59
PROVIDERS: ADMIT Orthopaedic Surgery Orthopaedic Surgery of the Spine; ATTEND Orthopaedic Surgery Orthopaedic Surgery of the Spine
PROC: 00NW0ZZ Release Cervical Spinal Cord, Open Approach (ICD-10-PCS; 2016-11-04)
PROC: 0RG2070 Fusion of 2 or more Cervical Vertebral Joints with Autologous Tissue Substitute, Anterior Approach, Anterior Column, Open Approach (ICD-10-PCS; 2016-11-04)
PROC: 0RT30ZZ Resection of Cervical Vertebral Disc, Open Approach (ICD-10-PCS; 2016-11-04)
PROC: 0QB30ZZ Excision of Left Pelvic Bone, Open Approach (ICD-10-PCS; 2016-11-04)
PROC: 0RG20A0 Fusion of 2 or more Cervical Vertebral Joints with Interbody Fusion Device, Anterior Approach, Anterior Column, Open Approach (ICD-10-PCS; principal; 2016-11-04 12:11)
DX: M50.021 Cervical disc disorder at C4-C5 level with myelopathy (principal); Z68.42 Body mass index [BMI] 45.0-49.9, adult; G95.89 Other specified diseases of spinal cord; M47.12 Other spondylosis with myelopathy, cervical region; D64.9 Anemia, unspecified; I10 Essential (primary) hypertension; M48.02 Spinal stenosis, cervical region; M50.022 Cervical disc disorder at C5-C6 level with myelopathy; M50.023 Cervical disc disorder at C6-C7 level with myelopathy; E78.5 Hyperlipidemia, unspecified; K21.0 Gastro-esophageal reflux disease with esophagitis; M25.78 Osteophyte, vertebrae; F32.9 Major depressive disorder, single episode, unspecified; E66.01 Morbid (severe) obesity due to excess calories; I25.10 Atherosclerotic heart disease of native coronary artery without angina pectoris; M50.121 Cervical disc disorder at C4-C5 level with radiculopathy; M50.122 Cervical disc disorder at C5-C6 level with radiculopathy; M50.123 Cervical disc disorder at C6-C7 level with radiculopathy
CPT/HCPCS: 72040; 76000; 80048; 82948; 85027; 94150; 94664; C1713; J0131; J0690; J1100; J1580; J2250; J2270; J2405; J2710; J3010; J3370; J7050; J7120; J7613; L0172

== ENCOUNTER → 2016-10-29 | Outpatient (CLI) | payer MEDICARE ==
[~2016-10-29] MED LIST: ASCO500C PO; ASPI1TAB69 PO; ASPI81 PO; CALC-179 PO; CALCTAB7 PO; CHOL400D2 PO; CLON.5 PO; CLON0.5T PO; CRANCAP2 PO; CYCL5TAB PO; DOCU1CAP39 PO; ESTR1 PO; ESTR1TAB PO; FENO5CAP PO; FENT50DI TD; FLUO20CA4 PO; GABA100C4 PO; GLUCTAB6 PO; HYDR-3288 PO; HYDR-3580 PO; HYDR-3583 PO; ISOS30TA17 PO; ISOS30TA3 PO; LISI-372 PO; LISI20TA3 PO; MAGN30S PO; METH1TAB2 PO; METO100T PO; MIRA50TA PO; MSM1000C PO; MULT-135 PO; NITR0.4S SL; NITR1SUB3 SL; NORC10TA2 PO; OMEG1CAP28 PO; OMEG1CAP53 PO; OXYB5TAB10 PO; PANT40TA3 PO; PREV30CA36 PO; PROZ20CA11 PO; SACC1CAP3 PO; SIMV40TA PO; TAB-TAB PO; TEMA15 PO; TEMA30CA PO; TOPR100T15 PO; UBIQ1CAP4 PO; VESI5TAB PO; VITA100T PO; VITA100T54 PO; VITA400C28 PO; VITA400C5 PO; VYTO10TA39 PO; [UNRECOGNIZED DRUG - CODE] PO
[2016-10-29 12:48] LABS: AUTOMATED NEUTROPHIL # 3.9 TH/MM3 (1.8-7.7); BASOPHIL % 0.7 % (0.0-2.0); EOSINOPHIL # 0.1 TH/MM3 (0-0.4); EOSINOPHIL % 1.9 % (0.0-4.0); HEMATOCRIT 39.1 % (35.0-46.0); HEMO FLAGS DIFF FINAL; LYMPH % 31.2 % (9.0-44.0); LYMPHOCYTE # 2.1 TH/MM3 (1.0-4.8); MEAN CELL VOLUME 93.1 FL (80.0-100.0); MEAN CORPUSCULAR HEMOGLOBIN 31.7 PG (27.0-34.0); MEAN CORPUSCULAR HGB CONC 34.1 % (32.0-36.0); MONO % 8.8 % (0.0-8.0); NEUT % 57.4 % (16.0-70.0); PLATELET COUNT 221 TH/MM3 (150-450); RED BLOOD COUNT 4.21 MIL/MM3 (4.00-5.30); RED CELL DISTRIBUTION WIDTH 13.5 % (11.6-17.2); WHITE BLOOD COUNT 6.8 TH/MM3 (4.0-11.0)
[2016-10-29 13:30] LABS: BICARBONATE 32.5 MEQ/L (21.0-32.0); POTASSIUM 3.5 MEQ/L (3.5-5.1)
--- NOTE | 2016-10-30 16:29 | EKG ---
Date Performed: 10/29/2016 Time Performed: 12:02:18 PTAGE: 76 years EKG: Sinus rhythm BORDERLINE LEFT AXIS DEVIATION Since previous tracing, no significant change noted BORDERLINE ECG PREVIOUS TRACING : 06/22/2015 19.15 DOCTOR: Sohan Brooks Interpretating Date/Time 10/30/2016 16:27:30
== END ==
LOC: CPRE 11:40
PROVIDERS: ATTEND Orthopaedic Surgery Orthopaedic Surgery of the Spine
DX: Z01.810 Encounter for preprocedural cardiovascular examination (principal); Z01.812 Encounter for preprocedural laboratory examination; Z01.818 Encounter for other preprocedural examination; M48.02 Spinal stenosis, cervical region; M50.30 Other cervical disc degeneration, unspecified cervical region; R94.31 Abnormal electrocardiogram [ECG] [EKG]
CPT/HCPCS: 36415; 80048; 85025; 93005

== ENCOUNTER 2016-10-30 12:21 | Emergency (ER) | payer MEDICARE ==
[~2016-10-30] VITALS: Ht 160 cm; Wt 115.5 kg
[~2016-10-30 12:21] MED LIST changes: -ASCO500C PO; -ASPI81 PO; -CALC-179 PO; -CLON.5 PO; -CYCL5TAB PO; -DOCU1CAP39 PO; -ESTR1 PO; -FENO5CAP PO; -FENT50DI TD; -HYDR-3288 PO; -HYDR-3580 PO; -ISOS30TA17 PO; -LISI-372 PO; -MAGN30S PO; -MIRA50TA PO; -NITR0.4S SL; -NORC10TA2 PO; -OMEG1CAP53 PO; -PREV30CA36 PO; -PROZ20CA11 PO; -TAB-TAB PO; -TEMA15 PO; -TOPR100T15 PO; -VESI5TAB PO; -VITA100T54 PO; -VITA400C28 PO; -VYTO10TA39 PO
[2016-10-30 12:24] VITALS: BP 217/98; PULSE 68; RESP 24; TEMP 97.9; O2SAT 97
--- NOTE | 2016-10-30 13:12 | PD ---
HPI Chief Complaint: Pain: Acute or Chronic Time Seen by Provider: 12:33 Travel History International Travel<30 days: No Contact w/Intl Traveler<30days: No Traveled to known affect area: No History of Present Illness HPI The patient was seen and examined in the presence of the nurse. This patient complains of right knee pain. She has chronic bilateral knee pain from severe arthritis but reports that today her right knee pain is worse. No specific injury or trauma to it. Denies fever. Worse with movement. He says she was supposed to get an injection in her right knee but couldn't do it because of pre -op testing she needed to get for a different problem. Severity of pain is moderate. Duration of the worsening is one day. No alleviating factors PFSH Past Medical History Hx Anticoagulant Therapy: No Arthritis: Yes Asthma: No Depression: Yes Heart Rhythm Problems: No Cancer: No Cardiovascular Problems: Yes High Cholesterol: Yes Chemotherapy: No Chest Pain: No Congestive Heart Failure: No COPD: No Cerebrovascular Accident: No Diabetes: No Diminished Hearing: No Endocrine: No Gastrointestinal Disorders: Yes (GERD) GERD: Yes Glaucoma: No Genitourinary: Yes (INCONTINENT, BLADDER SLING) Hepatitis: No Hiatal Hernia: No Hypertension: Yes Immune Disorder: No Kidney Stones: No Musculoskeletal: Yes (ARTHRITIS) Neurologic: Yes (RIGHT SIDE WEAKNESS DUE TO HEAD INJURY) Psychiatric: Yes (DEPRESSION) Reproductive: No Respiratory: No Renal Failure: No Sleep Apnea: No Thyroid Disease: No Ulcer: No Tetanus Vaccination: Unknown Influenza Vaccination: Yes Menopausal: Yes Tubal Ligation: Yes Past Surgical History Abdominal Surgery: Yes (,ABD HYSTERECTOMY, TUBAL LIGATON) AICD: No Body Medical Devices: N/A Cardiac Surgery: Yes (CARDIAC CATH) Section: Yes Ear Surgery: No Endocrine Surgery: No Eye Surgery: Yes (BILATERAL CATARACT REMOVAL) Genitourinary Surgery: Yes (A&P REPAIR) Gynecologic Surgery: Yes (C SECTION, TUBAL LIG, HYSTERECTOMY) Hysterectomy: Yes Joint Replacement: No Oral Surgery: Yes (CAPS) Pacemaker: No Thoracic Surgery: No Other Surgery: Yes Social History Alcohol Use: No Tobacco Use: No Substance Use: No Allergies-Medications (Allergen,Severity, Reaction): Coded Allergies: No Known Allergies (Verified , 10/30/16) Reported Meds & Prescriptions Reported Meds & Active Scripts Active Reported Calcium/Magnesium/Zinc (Krspmvy-Agtzyjghx-Eatq) 333-133-5 Mg Tab 1 Tab PO Glucosamine Chondroitin (Ajindtafbih-Ttoqyypehjm-Rqh C-) 1 Tab Tab 1 Tab PO DAILY Msm (Methylsulfonylmethane) 1,000 Mg Cap 1,000 Mg PO DAILY Multi Vitamin (Multiple Vitamin) 1 Tab Tab 1 Tab PO DAILY Selenium 200 Mcg Cap 200 Mg PO DAILY E-400 (Vitamin E) 400 Unit Cap 1 Cap PO DAILY Vitamin B-12 (Cyanocobalamin) 100 Mcg Tab 100 Mcg PO DAILY Aspirin 81 Mg Tabdr 81 Mg PO DAILY Vitamin D (Cholecalciferol) 400 Unit/Ml Drops 400 Units PO DAILY Ultra Coq10 (Ubiquinone) 75 Mg Cap 75 Mg PO BID Cranberry Urinary Comfort (Vitamins C & E) 1 Cap 2 Cap PO DAILY Methenamine Hippurate 1 Gm Tab 1 Gm PO BID Probiotic (Saccharomyces Boulardii) 250 Mg Cap 250 Mg PO BID Ditropan (Oxybutynin Chloride) 5 Mg Tab 10 Mg PO Q12HR Gabapentin 100 Mg Cap 100 Mg PO TID Hydrocodone-Acetaminophen 10-325 mg Tab 1 Tab PO Q4H PRN Nitroglycerin SL (Nitroglycerin) 0.4 Mg Subl 0.4 Mg SL DIRECTED PRN ONE TABLET UNDER THE TONGUE NEEDED FOR CHEST PAIN, MAY REPEAT EVERY FIVE MINUTES FOR A TOTAL OF 3 DOSES OR CALL 911 IF NO RELIEF Pantoprazole (Pantoprazole Sodium) 40 Mg Tab 40 Mg PO DAILY Isosorbide Mononitrate ER (Isosorbide Mononitrate) 30 Mg Linnette 30 Mg PO DAILY Temazepam 30 Mg Cap 30 Mg PO HS PRN Simvastatin 40 Mg Tab 40 Mg PO HS Metoprolol Tartrate 100 Mg Tab 100 Mg PO DAILY Tixsz-9-Odgm Ethyl Esters 1 Gm Cap 2 Gm PO BID Lisinopril-Hctz 20-25 Mg Tab 1 Tab PO DAILY Fluoxetine (Fluoxetine HCl) 20 Mg Cap 20 Mg PO DAILY Estradiol 1 Mg Tab 1 Mg PO , Clonazepam 0.5 Mg Tab 0.5 Mg PO BID Review of Systems General / Constitutional: No: Fever Eyes: No: Visual changes HENT: No: Headaches Cardiovascular: No: Chest Pain or Discomfort Respiratory: No: Shortness of Breath Gastrointestinal: No: Abdominal Pain Genitourinary: No: Dysuria Musculoskeletal: Positive: Arthralgias, Limited ROM, Pain Skin: No Rash Neurologic: No: Weakness Psychiatric: No: Depression Endocrine: No: Polydipsia Hematologic/Lymphatic: No: Easy Bruising Physical Exam Narrative GENERAL: Well-nourished, well-developed patient with right knee pain. SKIN: Warm and dry. HEAD: Atraumatic. Normocephalic. EYES: Pupils equal and round. No scleral icterus. No injection or drainage. ENT: No nasal bleeding or discharge. Mucous membranes pink and moist. NECK: Trachea midline. No JVD. CARDIOVASCULAR: Regular rate and rhythm. No murmur appreciated. RESPIRATORY: No accessory muscle use. Clear to auscultation. Breath sounds equal bilaterally. GASTROINTESTINAL: Abdomen soft, non-tender, nondistended. Hepatic and splenic margins not palpable. MUSCULOSKELETAL: No obvious deformities. No clubbing. No cyanosis. No edema. Difficult to get accurate knee exam because of her body habitus. She is significantly obese and has a lot of hanging fatty tissue around the knee. There is no erythema or warmth in that region. NEUROLOGICAL: Awake and alert. No obvious cranial nerve deficits. Motor grossly within normal limits. Normal speech. PSYCHIATRIC: Appropriate mood and affect; insight and judgment normal. Data Data Last Documented VS Vital Signs Date Time Temp Pulse Resp B/P Pulse Ox O2 Delivery O2 Flow Rate FiO2 10/30/16 14:00 60 18 131/77 96 Room Air 10/30/16 12:24 97.9 Orders Ondansetron Inj (Zofran Inj) (10/30/16 13:15) Morphine Inj (Morphine Inj) (10/30/16 13:15) Knee, Ltd (1 Or 2vws) (10/30/16 13:12) [facility] Medical Decision Making Medical Screen Exam Complete: Yes Emergency Medical Condition: Yes Medical Record Reviewed: Yes Differential Diagnosis Degenerative joint disease, septic joint, dislocation Narrative Course I have reviewed the patient's electronic medical record. Patient last admitted here 2014. No recent knee x-rays to compare I gave her injection of morphine and Zofran for symptom relief I reviewed her right knee x-rays show some arthritic change but no fracture or dislocation No clinical findings to suggest septic joint Upon recheck she feels improved after pain medicine Recommend she call her special warfare boat operator and orthopedist Tuesday for follow-up. She does have both a walker and wheelchair at home and she is already for the most part wheelchair bound. Suggested she could pursue getting a bedside commode so she has easier transfers Diagnosis Primary Impression: Right knee pain Qualified Code: M25.561 - Acute pain of right knee Additional Instructions: Follow up with special warfare boat operator and orthopedist Limit weightbearing on right knee Med/Other Pt SpecificInfo: Other Disposition: 01 DISCHARGE HOME Condition: Stable Frederick Prajapati MD Oct 30, 2016 13:12
[2016-10-30] MEDS ORDERED: MORPHINE SULFATE 4 MG/ML INJ IM ONE (13:15)
[2016-10-30] MEDS ORDERED: ONDANSETRON HCL 4 MG/2 ML VIAL IM ONE (13:15)
--- NOTE | 2016-10-30 13:46 | RADRPT ---
EXAM DATE/TIME: 10/30/2016 13:24 [facility] COMPARISON: No previous studies available for comparison. INDICATIONS : Pain without trauma. MEDICAL HISTORY : Arthritis. SURGICAL HISTORY : None. ENCOUNTER: Initial ACUITY: 2 days PAIN SCORE: 6/10 LOCATION: Right knee. FINDINGS: 2 views of the right knee demonstrate mild lateral joint line narrowing and bony productive changes. The osseous structures are otherwise unremarkable. No visible knee effusion. Soft tissues demonstrate no acute abnormality.CONCLUSION: Mild degenerative change. No acute abnormality seen. Maria G Diallo MD on October 30, 2016 at 13:42 Board Certified Radiologist. This report was verified electronically.
[2016-10-30 14:00] VITALS: BP 131/77; PULSE 60; RESP 18; O2SAT 96
[2016-10-30 15:45] VITALS: BP 145/69; PULSE 65; RESP 18; O2SAT 97
== END 2016-10-30 16:16 | disposition home or self-care (01) ==
LOC: NEPE 12:21
DX: M25.561 Pain in right knee (principal); E78.00 Pure hypercholesterolemia, unspecified; I10 Essential (primary) hypertension; M19.90 Unspecified osteoarthritis, unspecified site; K21.9 Gastro-esophageal reflux disease without esophagitis
CPT/HCPCS: 73560; 96372; 99283; J2270; J2405

== ENCOUNTER 2016-11-09 11:34 | Inpatient (IN) | payer MEDICARE ==
[~2016-11-09] VITALS: Ht 157.5 cm; Wt 123.3 kg
[~2016-11-09 11:34] MED LIST changes: +HYDR-3288 PO; -HYDR-3583 PO; -VITA100T PO; +VITA100T54 PO
[2016-11-16] MEDS ORDERED: SODIUM CHLORID 0.9% 500 ML IV PRN (09:15)
[2016-11-16] MEDS ORDERED: POVIDONE IODINE 5% (ANTISEPSIS KIT) 4 APPLICATIONS EACH NARE PRN (09:15)
[2016-11-16] MEDS ORDERED: METOPROLOL TARTRATE 25 MG TAB PO PRN (09:15)
[2016-11-16] MEDS ORDERED: LACTATED RINGER'S 1000 ML IV PRN (09:15)
[2016-11-16] MEDS ORDERED: INSULIN HUMAN REGULAR 1,000 UNITS/10 ML VIAL SQ PRN (09:15)
[2016-11-16] MEDS ORDERED: CHLORHEXIDINE GLUCONATE 2 % 1 PACK (2 CLOTHS) TOPICAL PRN (09:15)
[2016-11-16] MEDS ORDERED: POVIDONE IODINE 7.5% SCRUB 118 ML BOTTLE TOPICAL SCH (09:30)
[2016-11-16] MEDS ORDERED: VANCOMYCIN 1000 MG/NS 250 ML (for <70 kg) IV SCH ×2 (09:30)
[2016-11-16] MEDS ORDERED: ceFAZolin 2 GM PREMIX 50 ML IV SCH (09:30)
[2016-11-16 09:37] VITALS: BP 150/63; PULSE 67; RESP 18; TEMP 97.8; O2SAT 95
[2016-11-16] MEDS ORDERED: PHENYLEPH/NS 1000 MCG/10 ML SYR IV ONE (09:47)
[2016-11-16] MEDS ORDERED: ONDANSETRON HCL 4 MG/2 ML VIAL IV PUSH ONE (09:47)
[2016-11-16] MEDS ORDERED: PROPOFOL 200 MG/20 ML AMP IV ONE (09:47)
[2016-11-16] MEDS ORDERED: ePHEDrine/NS 25 MG/5 ML SYR IV ONE (09:47)
[2016-11-16] MEDS ORDERED: NORMOSOL R INJ 1,000 ML IV ONE (09:48)
[2016-11-16] MEDS ORDERED: SODIUM CHLORID 0.9% 500 ML INJ 500 ML IV ONE (09:48)
[2016-11-16] MEDS ORDERED: CYCL5TAB PO (10:25)
[2016-11-16] MEDS ORDERED: RESP: ALBUTEROL 2.5 MG/IPRATROPIUM 0.5 MG NEB (PRN) ONE (11:19)
[2016-11-16] MEDS ORDERED: GENTAMICIN SULFATE 80 MG/2 ML VIAL ONE (11:42)
[2016-11-16] MEDS ORDERED: BUPIVACAINE/EPINEPHRINE 0.25% 50 ML VIAL ONE (11:42)
[2016-11-16] MEDS ORDERED: FAMOTIDINE 20 MG/2 ML VIAL ONE (12:19)
[2016-11-16] MEDS ORDERED: MIDAZOLAM HCL 2 MG/2 ML VIAL ONE (12:20)
[2016-11-16] MEDS ORDERED: SUGAMMADEX SODIUM 200 MG/2 ML VIAL IV PUSH ONE ×2 (14:59)
--- NOTE | 2016-11-16 15:12 | PD.OP ---
cc: Tom Gonzalez. Operative Report Date of Surgery: Nov 16, 2016 Preoperative Diagnosis: Cervical spinal stenosis. Cervical myelopathy. Cervical radiculopathy. Degenerative disc disease cervical spine. Status post anterior cervical discectomy decompression and bilateral foraminotomies with interbody fusion and anterior plate, C4 to C7. Postoperative Diagnosis: Same Procedure: Posterior cervical fusion C4 to C7. Placement of intra-facet cages C4 5, C5 6 and C6 7, bilateral. Segmental instrumentation with intra-facet screws C4 5, C5 6, C6 7. Bone grafting of the cervical spine Anesthesia: Gen. Surgeon: Tom Gonzalez [employer] Head(s): EUNICE Darling Operation and Findings: EBL: 100 cc INDICATIONS: This patient is a 76-year-old female with a significant cervical myelopathy. She is status post anterior cervical decompression and fusion C4 to C7. She presents now for staged posterior cervical fusion NOTE: Sonia Darling PA-C was present for the entire surgical procedure as my airline pilot/first officer. In my medical opinion her skill and care was necessary for proper management of this patient PROCEDURE: The patient was brought the operating room and anesthetized in the supine position. The patient was positioned prone on a Dewey table. The arms were placed out along the side and taping was utilized to ensure adequate visualization. AP and lateral radiographic images were used identifying the proper level and allowing excellent exposure for purpose of the cervical fusion. A timeout was done and antibiotics were given within a routine time window. Using AP and lateral radiographs, skin markings were made. On the right side and 18-gauge spinal needle was placed down to the proper level. The left side a separate incision was made and we used the SeeMeRAX system. Exposure was afforded down to the proper level. Under visualization, a chisel was placed down to the C C6 7 level. This was confirmed under radiographs to be in proper position. Exposure was satisfactory. This is placed down into the facet joint at that level. A decorticating device was utilized decorticating the bone of the facet above and below. A retractor was placed down over the access chisel allowing exposure to the joint and exposure to the articular cartilage. A drilling system was utilized removing cartilage and bone this region followed by a rasp. On the back table demineralized bone matrix was mixed with Nucel stem cells and a autogenous bone graft. A combination of both these were then paced placed into proper cages. The cages were impacted into the proper position and checked again under AP and lateral fluoroscopic images. A transfixation screw was placed into the cage having excellent fixation into the facet joint of the level above. The back side of the cage was filled with additional bone graft which was tamped into position. The retractor was removed. On the right side a separate incision was made. Using the likewise sequence of access to the same level, an incision was made allowing visualization for placement of an access chisel which was placed into the joint followed by decortication with excellent visualization. A final retractor was positioned holding this while we were able to drill and use the rasp. The joint was prepared and we created a space for the cage. The cage was filled with bone graft and impacted in proper position. A transfixation screw was fixated at that time and alignment was satisfactory. Additional bone graft placed along the posterior aspect of the cage and the facet joint and was tamped into position.. At the C5 6 level, this was repeated in the likewise fashion. A decorticating device was utilized decorticating the bone of the facet above and below. A retractor was placed down over the access chisel allowing exposure to the joint and exposure to the articular cartilage. A drilling system was utilized removing cartilage and bone this region followed by a rasp. On the back table demineralized bone matrix was mixed with Nucel stem cells and a autogenous bone graft. A combination of both these were then paced placed into proper cages. The cages were impacted into the proper position and checked again under AP and lateral fluoroscopic images. A transfixation screw was placed into the cage having excellent fixation into the facet joint of the level above. The back side of the cage was filled with additional bone graft which was tamped into position. The retractor was removed. On the right side this was repeated in the likewise fashion. Using the likewise sequence of access to the same level. An access chisel was placed into the joint followed by decortication with excellent visualization. A final retractor was positioned holding this while we were able to drill and use the rasp. The joint was prepared and we created a space for the cage. The cage was filled with bone graft and impacted in proper position. A transfixation screw was fixated at that time and alignment was satisfactory. Additional bone graft placed along the posterior aspect of the cage and the facet joint and was tamped into position. At the C4 5 level, this was repeated in the likewise fashion. A decorticating device was utilized decorticating the bone of the facet above and below. A retractor was placed down over the access chisel allowing exposure to the joint and exposure to the articular cartilage. A drilling system was utilized removing cartilage and bone this region followed by a rasp. On the back table demineralized bone matrix was mixed with Nucel stem cells and a autogenous bone graft. A combination of both these were then paced placed into proper cages. The cages were impacted into the proper position and checked again under AP and lateral fluoroscopic images. A transfixation screw was placed into the cage having excellent fixation into the facet joint of the level above. The back side of the cage was filled with additional bone graft which was tamped into position. The retractor was removed. On the right side this was repeated in the likewise fashion. Using the likewise sequence of access to the same level. An access chisel was placed into the joint followed by decortication with excellent visualization. A final retractor was positioned holding this while we were able to drill and use the rasp. The joint was prepared and we created a space for the cage. The cage was filled with bone graft and impacted in proper position. A transfixation screw was fixated at that time and alignment was satisfactory. Additional bone graft placed along the posterior aspect of the cage and the facet joint and was tamped into position. Intraoperative x-rays in AP and lateral plane showed excellent positioning and stabilization . The wound was irrigated copiously. Hemostasis was controlled. The fascia was closed with interrupted Vicryl suture skin and subcutaneous tissue with 3-0 Vicryl suture followed by Dermabond. The sponge count needle counts and sponge counts were all correct. The patient tolerated the procedure well as taken to the recovery room in satisfactory condition. FINDINGS: There was no apparent complication. The patient's body size and limited visibility to some degree and an excessive amount time was necessary to have proper fluoroscopic images. The final solution was excellent. No complication was appreciated. Tom Gonzalez MD Nov 16, 2016 15:12
[2016-11-16] MEDS ORDERED: SODIUM CHLORIDE 0.9% FLUSH 5 ML FLUSH IVF PRN (15:15)
[2016-11-16] MEDS ORDERED: NITROGLYCERIN 0.4 MG SL 25 TABS/BTL SL PRN (15:15)
[2016-11-16] MEDS ORDERED: ACETAMINOPHEN/HYDROcodone 325 MG/7.5 MG TAB PO PRN (15:15)
[2016-11-16] MEDS ORDERED: MORPHINE SULFATE 4 MG/ML INJ IV PUSH PRN (15:15)
[2016-11-16] MEDS ORDERED: HYDR-3580 PO (15:15)
[2016-11-16] MEDS ORDERED: TEMAZEPAM 15 MG CAP PO PRN (15:15)
[2016-11-16] MEDS ORDERED: BISACODYL 10 MG SUPP RECTAL PRN (15:15)
[2016-11-16] MEDS ORDERED: ONDANSETRON HCL 4 MG/2 ML VIAL IV PRN (15:15)
[2016-11-16] MEDS ORDERED: Post-op Orders (for Pharmacy) MISC XX ONE (15:15)
[2016-11-16] MEDS ORDERED: DO NOT ADM ANY ANTICOAGULANT DRUGS PRN (15:21)
[2016-11-16] MEDS ORDERED: fentaNYL CITRATE 250 MCG/5 ML AMP ONE ×2 (15:33)
[2016-11-16] MEDS ORDERED: *morphine SULFATE 8 MG/ML PERIprocedure ONLY ONE ×3 (15:45→16:31)
[2016-11-16] MEDS: LACTATED RINGER'S 1000 ML INJ 1,000 ML IV SCH (16:00)
--- NOTE | 2016-11-16 17:12 | HHI.DCPOC ---
Discharge Care Plan Diagnosis: (1) Cervical spinal stenosis (2) Cervical myelopathy Your Health Problems Are: Incision/Drains Swelling Goals to Promote Your Health * To prevent worsening of your condition and complications * To maintain your health at the optimal level Directions to Meet Your Goals Take your medications as prescribed Follow your dietary instruction Follow activity as directed Keep your appointments as scheduled Take your immunizations and boosters as scheduled If your symptoms worsen call your PCP, if no PCP go to Urgent Care Center or Emergency Room Smoking is Dangerous to Your Health. Avoid second hand smoke Call the 24-hour hour crisis hotline for domestic abuse at Steffanie Padron Nov 16, 2016 17:12
--- NOTE | 2016-11-16 17:13 | HHI.DS ---
Discharge Summary Admission Date Nov 16, 2016 at 08:47 Discharge Date: Nov 17, 2016 Admitting Diagnosis see below Diagnosis: (1) Cervical myelopathy Diagnosis: Principal (2) Cervical spinal stenosis Diagnosis: Principal Procedures Posterior cervical fusion C4 to C7, posterior DTRAX instrumentation, bone graft. Brief History This is a 76 year old female patient with a history of increasing weakness in her arms and legs over the last 6 months. She had a history of left-sided weakness due to a head injury as a child and has required a gait aid for the that 3-[address] Sofia ordered a cervical spine MRI August 2016. That study showed significant spinal stenosis and cervical myelopathy with changes in the cord. She was urgently referred to orthopedics for evaluation and possible surgical treatment. Upon review review of the studies surgical treatment was quickly recommended. The patient agreed and presents today for surgical treatment. Hospital Course Surgical treatment was performed on the day of admission without complication. She recovered well in PACU and was transferred to the orthopedic floor. Her pain was controlled with IV and oral medications. She was compliant with her cervical brace and all restrictions. After one day she was found be stable and discharged back to the rehab facility that was located at prior to the surgery. 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 She was given a prescription for narcotic pain medication to take as needed. Pt Condition on Discharge: Stable Discharge Disposition: Discharge Home Discharge Instructions Diet Instructions: As Tolerated, No Restrictions, High Fiber Diet Activities You Can Perform: See Additionl Instruction Additional Activity Instruc.: Cervical brace part time receptionist New Medications: Hydrocodone-Acetaminophen (Hydrocodone-Acetaminophen) 7.5-325 mg Tab 1 TAB PO Q4H PRN PAIN SCALE 1 TO 5 #50 TAB Continued Medications: Aspirin (Aspirin) 81 Mg Tabdr 81 MG PO DAILY TAB Krywxjd-Rjcktgxhs-Tufq (Calcium/Magnesium/Zinc) 333-133-5 Mg Tab 1 TAB PO TAB Cholecalciferol (Vitamin D) 400 Unit/Ml Drops 400 UNITS PO DAILY #1 BOTTLE Clonazepam (Clonazepam) 0.5 Mg Tab 0.5 MG PO BID #60 Ref 0 TAB Cyclobenzaprine (Flexeril) 5 Mg Tab 5 MG PO TID PRN MUSCLE SPASM #90 Ref 0 TAB Estradiol (Estradiol) 1 Mg Tab 1 MG PO tues,fri Estrogen Supplements #30 Ref 0 TAB Fluoxetine (Fluoxetine) 20 Mg Cap 20 MG PO DAILY #30 Ref 0 CAP Gabapentin (Gabapentin) 100 Mg Cap 100 MG PO TID #90 Ref 0 CAP Mhpnwonivfr-Tvypkpkrjqi-Iig C- (Glucosamine Chondroitin) 1 Tab Tab 1 TAB PO TID Hydrocodone-Acetaminophen ([place]) 7.5-325 mg Tab 2 TAB PO Q6H PRN PAIN #40 Ref 0 TAB Isosorbide Mononitrate ER (Isosorbide Mononitrate ER) 30 Mg Linnette 30 MG PO DAILY Prevent Chest Pain #30 Ref 0 TAB Lisinopril-Hctz (Lisinopril-Hctz) 20-25 Mg Tab 1 TAB PO DAILY Blood Pressure Management #30 Ref 0 TAB Methenamine Hippurate (Methenamine Hippurate) 1 Gm Tab 1 GM PO BID Infection Ref 0 TAB Metoprolol Tartrate (Metoprolol Tartrate) 100 Mg Tab 100 MG PO DAILY #30 Ref 0 TAB Multiple Vitamin (Multi Vitamin) 1 Tab Tab 1 TAB PO DAILY TAB Nitroglycerin SL (Nitroglycerin SL) 0.4 Mg Subl 0.4 MG SL DIRECTED ONE TABLET UNDER THE TONGUE NEEDED FOR CHEST PAIN, MAY REPEAT EVERY FIVE MINUTES FOR A TOTAL OF 3 DOSES OR CALL 911 IF NO RELIEF PRN CHEST PAIN #100 Ref 0 TAB.SL Fdube-8-Xcbh Ethyl Esters (Zgzmp-7-Jhvm Ethyl Esters) 1 Gm Cap 2 GM PO BID Manage Triglycerides #120 Ref 0 CAP Oxybutynin (Ditropan) 5 Mg Tab 10 MG PO DAILY Urinary Symptom Managemen #60 Ref 0 TAB Pantoprazole (Pantoprazole) 40 Mg Tab 40 MG PO DAILY Reflux #30 Ref 0 TAB Saccharomyces Boulardii (Probiotic) 250 Mg Cap 250 MG PO BID Nutritional Supplement Ref 0 CAP Simvastatin (Simvastatin) 40 Mg Tab 40 MG PO HS Cholesterol Management #30 Ref 0 TAB Temazepam (Temazepam) 30 Mg Cap 30 MG PO HS PRN INSOMNIA #30 Ref 0 CAP Thiamine (Vitamin B-1) 100 Mg Tab 150 MG PO DAILY Nutritional Supplement Ref 0 TAB Ubiquinone (Ultra Coq10) 75 Mg Cap 75 MG PO BID Vitamin E (E-400) 400 Unit Cap 1 CAP PO DAILY Vitamins C & E (Cranberry Urinary Comfort) 1 Cap 2 CAP PO DAILY Urinary Symptom Managemen Ref 0 CAP Steffanie Padron Nov 16, 2016 17:13
[2016-11-16] MEDS ORDERED: *HYDROmorphone PF 1 MG VIAL PERIprocedural Use ONLY ONE (17:23)
[2016-11-16] MEDS: GABAPENTIN 100 MG CAP PO SCH (19:20)
[2016-11-16] MEDS ORDERED: NON-FORMULARY DRUG (Simvastatin 40 MG) PO SCH (21:00)
[2016-11-16] MEDS ORDERED: PRAVASTATIN SOD 80 MG TAB PO SCH (21:00)
[2016-11-16] MEDS: SODIUM CHLORIDE 0.9% FLUSH 5 ML FLUSH IVF SCH (21:00)
[2016-11-16] MEDS: ACETAMINOPHEN/HYDROcodone 325 MG/7.5 MG TAB PO PRN (21:08)
[2016-11-16] MEDS: clonazePAM 0.5 MG TAB PO SCH (21:08)
[2016-11-16 21:21] VITALS: BP 136/62; PULSE 90; RESP 20; TEMP 98.1; O2SAT 97
--- NOTE | 2016-11-16 23:24 | RADRPT ---
EXAM DATE/TIME: 11/16/2016 14:52 [facility] COMPARISON: SPINE [facility]ERVICAL [facility]), November 04, 2016, 16:56. INDICATIONS : Cervical spine fusion. MEDICAL HISTORY : None. SURGICAL HISTORY : Fusion, cervical. ENCOUNTER: Initial ACUITY: 1 day PAIN SCORE: Non-responsive. LOCATION: Bilateral neck FINDINGS: AP and lateral cone-down views of the cervical spine were obtained and demonstrate prior anterior fus ion at the C4-C7 level with intact anterior screw-plate fixation device. There are metallic markers i n the interspaces The patient is now status post interval posterior fusion at the C4, C5 and C6 level s. CONCLUSION: Status post multilevel fusion. Pj Shah MD on November 16, 2016 at 23:20 Board Certified Radiologist. This report was verified electronically.
[2016-11-17 00:30] VITALS: BP 136/62; PULSE 70; RESP 20; TEMP 98.1; O2SAT 97
[2016-11-17] MEDS: CYCLOBENZAPRINE HCL 10 MG TAB PO PRN ×2 (01:37→09:02)
[2016-11-17 04:10] VITALS: BP 133/64; PULSE 84; RESP 19; TEMP 98.5; O2SAT 96
[2016-11-17] MEDS: ACETAMINOPHEN/HYDROcodone 325 MG/7.5 MG TAB PO PRN ×2 (04:30→11:01)
[2016-11-17] MEDS: LACTATED RINGER'S 1000 ML INJ 1,000 ML IV SCH (04:30)
--- NOTE | 2016-11-17 07:57 | PD.ORT.PN ---
Subjective Subjective Remarks Neck sore. Burning and aching base of neck posterior. Some throat soreness but 'ok'. No new arm pain. No other complaints. No CP or SOB. Objective Vitals Vital Signs Date Time Temp Pulse Resp B/P Pulse Ox O2 Delivery O2 Flow Rate FiO2 11/17/16 04:10 98.5 84 19 133/64 96 11/17/16 00:30 98.1 70 20 136/62 97 11/16/16 21:21 98.1 90 20 136/62 97 11/16/16 20:21 88 16 125/49 98 Nasal Cannula 2 11/16/16 19:00 97.5 89 16 131/54 98 Nasal Cannula 2 11/16/16 18:00 81 16 137/60 98 Nasal Cannula 2 11/16/16 17:30 80 16 154/63 97 Nasal Cannula 2 11/16/16 17:00 71 16 165/73 97 Nasal Cannula 3 11/16/16 16:30 72 16 168/75 97 Nasal Cannula 3 11/16/16 16:15 78 16 162/75 98 Nasal Cannula 3 11/16/16 16:00 80 15 161/75 98 Nasal Cannula 3 11/16/16 15:45 82 15 158/73 94 Simple Mask 6 11/16/16 15:30 81 15 176/79 96 Simple Mask 6 11/16/16 15:20 97.8 99 15 169/98 99 Simple Mask 6 11/16/16 09:37 97.8 67 18 150/63 95 I/O 11/16/16 11/16/16 11/16/16 11/17/16 11/17/16 11/17/16 07:00 15:00 23:00 07:00 15:00 23:00 Intake Total 1580 ml 360 ml Output Total 1170 ml 400 ml Balance 410 ml -40 ml Intake Oral 120 ml 360 ml IV Total 360 ml Other 1100 ml Output Urine Total 1150 ml 400 ml Estimated Blood Loss 20 ml # Bowel Movements 0 0 Procedures Posterior cervical fusion C4 to C7, posterior DTRAX instrumentation, bone graft. Objective Remarks Laying in bed C/S brace in place NAD C/S Brace in place, posterior dressing in place, no new drainage, mild spasm +motor UE, +sens, +nvi Assessment & Plan Ortho Post Op Day #: 1 Problem List: (1) Cervical myelopathy (2) Cervical spinal stenosis Assessment and Plan pod#1 s/p PSF C4-C7 D/C post acute care registered nurse - change to po pain meds. Dry dressing changes daily. 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 D/C parks cath. PO pain meds as needed. D/C home today. Apparently she came from a rehab. F/U outpatient in 2 weeks as scheduled. Steffanie Padron Nov 17, 2016 07:57
[2016-11-17 08:00] VITALS: BP 129/61; PULSE 80; RESP 16; TEMP 96.1; O2SAT 98
[2016-11-17] MEDS: clonazePAM 0.5 MG TAB PO SCH (08:47)
[2016-11-17] MEDS: GABAPENTIN 100 MG CAP PO SCH (08:47)
[2016-11-17] MEDS ORDERED: MULTIVITAMINS/MINERALS THERAPEUTIC TAB PO SCH (09:00)
[2016-11-17] MEDS ORDERED: PANTOPRAZOLE SOD 40 MG DELAYED RELEASE TAB PO SCH (09:00)
[2016-11-17] MEDS ORDERED: FLUoxetine HCL 20 MG CAP PO SCH (09:00)
[2016-11-17] MEDS ORDERED: NON-FORMULARY DRUG (Lisinopril-Hctz 1 TAB) PO SCH (09:00)
[2016-11-17] MEDS ORDERED: LISINOPRIL 20 MG TAB PO SCH (09:00)
[2016-11-17] MEDS: SODIUM CHLORIDE 0.9% FLUSH 5 ML FLUSH IVF SCH (09:00)
[2016-11-17] MEDS ORDERED: DOCUSATE SODIUM 100 MG CAP PO SCH (09:00)
[2016-11-17] MEDS ORDERED: OXYBUTYNIN CHLORIDE 5 MG TAB PO SCH (09:00)
[2016-11-17] MEDS ORDERED: ISOSORBIDE MONONITRATE 30 MG TAB PO SCH (09:00)
[2016-11-17] MEDS ORDERED: HYDROCHLOROTHIAZIDE 25 MG TAB PO SCH (09:00)
[2016-11-17] MEDS ORDERED: METOPROLOL TARTRATE 100 MG TAB PO SCH (09:00)
[2016-11-17 12:00] VITALS: BP 99/56; PULSE 69; RESP 18; TEMP 99; O2SAT 93
== END 2016-11-17 15:47 | DRG 472 ==
LOC: HSDI 11-16 08:47 → N06B 11-16 21:04
PROVIDERS: ADMIT Orthopaedic Surgery Orthopaedic Surgery of the Spine; ATTEND Orthopaedic Surgery Orthopaedic Surgery of the Spine
PROC: 0RG20A1 (ICD-10-PCS; principal; 2016-11-16 12:25)
DX: M48.02 Spinal stenosis, cervical region (principal); M50.00 Cervical disc disorder with myelopathy, unspecified cervical region; Z68.42 Body mass index [BMI] 45.0-49.9, adult; I10 Essential (primary) hypertension; M50.10 Cervical disc disorder with radiculopathy, unspecified cervical region; M62.81 Muscle weakness (generalized); S09.90XS Unspecified injury of head, sequela; M16.10 Unilateral primary osteoarthritis, unspecified hip; M17.10 Unilateral primary osteoarthritis, unspecified knee; E78.00 Pure hypercholesterolemia, unspecified; I25.10 Atherosclerotic heart disease of native coronary artery without angina pectoris; E66.9 Obesity, unspecified; Z87.891 Personal history of nicotine dependence
CPT/HCPCS: 72040; 76000; 94150; 94664; C1713; J0690; J1170; J1580; J2250; J2270; J2370; J2405; J3010; J3370; J7040; J7050; J7120

== ENCOUNTER 2017-11-07 14:07 | Inpatient (IN) | payer MEDICARE ==
[2017-11-07] VITALS (8 sets, daily range): BP systolic 95–117; BP diastolic 47–74; PULSE 55–68; RESP 12–22; TEMP 97.8–98.1; O2SAT 94–100
[~2017-11-07] VITALS: Ht 157.5 cm; Wt 120.2 kg
[~2017-11-07 14:07] MED LIST changes: +CYCL5TAB PO; +HYDR-3580 PO; -MSM1000C PO; -OXYB5TAB10 PO; +OXYB5TAB8 PO; -[UNRECOGNIZED DRUG - CODE] PO
[2017-11-07 16:27] LABS: AUTOMATED NEUTROPHIL # 5.6 TH/MM3 (1.8-7.7); BASOPHIL # 0.1 TH/MM3 (0-0.2); BASOPHIL % 0.6 % (0.0-2.0); EOSINOPHIL # 0.1 TH/MM3 (0-0.4); EOSINOPHIL % 1.2 % (0.0-4.0); HEMATOCRIT 42.5 % (35.0-46.0); HEMOGLOBIN 14.1 GM/DL (11.6-15.3); LYMPH % 27.2 % (9.0-44.0); LYMPHOCYTE # 2.5 TH/MM3 (1.0-4.8); MEAN CORPUSCULAR HEMOGLOBIN 31.2 PG (27.0-34.0); MEAN CORPUSCULAR HGB CONC 33.2 % (32.0-36.0); MEAN PLATELET VOLUME 7.9 FL (7.0-11.0); MONO % 10.9 % (0.0-8.0); NEUT % 60.1 % (16.0-70.0); PLATELET COUNT 241 TH/MM3 (150-450); RED BLOOD COUNT 4.52 MIL/MM3 (4.00-5.30); RED CELL DISTRIBUTION WIDTH 13.9 % (11.6-17.2); WHITE BLOOD COUNT 9.4 TH/MM3 (4.0-11.0)
[2017-11-07 16:42] LABS: PROTHROMBIN TIME - PATIENT 10.2 SEC (9.8-11.6)
[2017-11-07 16:54] LABS: ALBUMIN 3.9 GM/DL (3.4-5.0); AST (GOT) 86 U/L (15-37); BICARBONATE 22.4 MEQ/L (21.0-32.0); BLOOD UREA NITROGEN 41 MG/DL (7-18); CALCIUM 8.9 MG/DL (8.5-10.1); CHLORIDE 105 MEQ/L (98-107); CREATININE 2.49 MG/DL (0.50-1.00); GLOMERULAR FILTRATION RATE 19 ML/MIN (>89); GLUCOSE,RANDOM 101 MG/DL (74-106); MAGNESIUM 1.8 MG/DL (1.5-2.5); SODIUM (NA) 139 MEQ/L (136-145)
[2017-11-07 17:08] LABS: ALKALINE PHOSPHATASE 38 U/L (45-117); ALT (GPT) 28 U/L (10-53); TOTAL BILIRUBIN ADULT 0.2 MG/DL (0.2-1.0); TOTAL PROTEIN 7.6 GM/DL (6.4-8.2); TROPONIN I LESS THAN 0.02 NG/ML (0.02-0.05)
--- NOTE | 2017-11-07 17:43 | PD ---
HPI Chief Complaint: General Weakness Time Seen by Provider: 17:01 Travel History International Travel<30 days: No Contact w/Intl Traveler<30days: No Traveled to known affect area: No History of Present Illness HPI 77-year-old female here for evaluation of generalized weakness. She reports that about 2 or 3 days ago she slowly fell to the ground because of weakness. She lives at home with her and has home PT and OT visit her regularly. She states that she is unable to get her bedside commode like she is usually able to. She reports that her mother had Parkinson's disease and she believes she may be developing Parkinson's disease. She reports having a tremor in her left hand and some difficulty swallowing at times. PFSH Past Medical History Hx Anticoagulant Therapy: No Arthritis: Yes Asthma: No Depression: Yes Heart Rhythm Problems: No Cancer: No Cardiovascular Problems: Yes (CORONARY ARTERY BLOCKAGE) High Cholesterol: Yes Chemotherapy: No Chest Pain: No Congestive Heart Failure: No COPD: No Cerebrovascular Accident: No Diabetes: No (denies) Diminished Hearing: No Endocrine: No Gastrointestinal Disorders: Yes (GERD) GERD: Yes Glaucoma: No Genitourinary: Yes (INCONTINENT, BLADDER SLING, uti) Hepatitis: No Hiatal Hernia: No Hypertension: Yes Immune Disorder: No Kidney Stones: No Musculoskeletal: Yes (ARTHRITIS) Neurologic: Yes (RIGHT SIDE WEAKNESS) Psychiatric: Yes (DEPRESSION) Reproductive: No Respiratory: No Renal Failure: No Sleep Apnea: No Thyroid Disease: No Ulcer: No Menopausal: Yes : 6 Para: 4 Miscarriage: 2 Tubal Ligation: Yes Past Surgical History Abdominal Surgery: Yes AICD: No Body Medical Devices: LUMBAR FUSION Cardiac Surgery: Yes (CARDIAC CATH) Section: Yes (x1) Ear Surgery: No Endocrine Surgery: No Eye Surgery: Yes (BILATERAL CATARACT REMOVAL) Genitourinary Surgery: Yes (A&P REPAIR) Gynecologic Surgery: Yes (C SECTION, HYSTERECTOMY) Hysterectomy: Yes Joint Replacement: No Oral Surgery: Yes (CAPS) Pacemaker: No Thoracic Surgery: No Other Surgery: Yes Social History Alcohol Use: No Tobacco Use: No Substance Use: No Allergies-Medications (Allergen,Severity, Reaction): Coded Allergies: No Known Allergies (Verified Adverse Reaction, Unknown, 11/07/17) Reported Meds & Prescriptions Reported Meds & Active Scripts Active Hydrocodone-Acetaminophen 7.5-325 mg Tab 1 Tab PO Q4H PRN Reported Flexeril (Cyclobenzaprine HCl) 5 Mg Tab 5 Mg PO TID PRN [place] (Hydrocodone-Acetaminophen) 7.5-325 mg Tab 2 Tab PO Q6H PRN Vitamin B-1 (Thiamine HCl) 100 Mg Tab 150 Mg PO DAILY Calcium/Magnesium/Zinc (Evkmejm-Cldrwmodq-Jaid) 333-133-5 Mg Tab 1 Tab PO Glucosamine Chondroitin (Lxksfypmavq-Ckqckdfkkwa-Rje C-) 1 Tab Tab 1 Tab PO TID Multi Vitamin (Multiple Vitamin) 1 Tab Tab 1 Tab PO DAILY E-400 (Vitamin E) 400 Unit Cap 1 Cap PO DAILY Aspirin 81 Mg Tabdr 81 Mg PO DAILY Vitamin D (Cholecalciferol) 400 Unit/Ml Drops 400 Units PO DAILY Ultra Coq10 (Ubiquinone) 75 Mg Cap 75 Mg PO BID Cranberry Urinary Comfort (Vitamins C & E) 1 Cap 2 Cap PO DAILY Methenamine Hippurate 1 Gm Tab 1 Gm PO BID Probiotic (Saccharomyces Boulardii) 250 Mg Cap 250 Mg PO BID Ditropan (Oxybutynin Chloride) 5 Mg Tab 10 Mg PO DAILY Gabapentin 100 Mg Cap 100 Mg PO TID Nitroglycerin SL (Nitroglycerin) 0.4 Mg Subl 0.4 Mg SL DIRECTED PRN ONE TABLET UNDER THE TONGUE NEEDED FOR CHEST PAIN, MAY REPEAT EVERY FIVE MINUTES FOR A TOTAL OF 3 DOSES OR CALL 911 IF NO RELIEF Pantoprazole (Pantoprazole Sodium) 40 Mg Tab 40 Mg PO DAILY Isosorbide Mononitrate ER (Isosorbide Mononitrate) 30 Mg Linnette 30 Mg PO DAILY Temazepam 30 Mg Cap 30 Mg PO HS PRN Simvastatin 40 Mg Tab 40 Mg PO HS Metoprolol Tartrate 100 Mg Tab 100 Mg PO DAILY Utqmn-0-Nuoc Ethyl Esters 1 Gm Cap 2 Gm PO BID Lisinopril-Hctz 20-25 Mg Tab 1 Tab PO DAILY Fluoxetine (Fluoxetine HCl) 20 Mg Cap 20 Mg PO DAILY Estradiol 1 Mg Tab 1 Mg PO ,TUE Clonazepam 0.5 Mg Tab 0.5 Mg PO BID Review of Systems Except as stated in HPI: all other systems reviewed are Neg Physical Exam Narrative GENERAL: Well-developed, well-nourished, overweight, awake, alert no apparent distress. SKIN: Focused skin assessment warm/dry. HEAD: Atraumatic. Normocephalic. EYES: Pupils equal and round. No scleral icterus. No injection or drainage. ENT: Mucous membranes pink and moist. NECK: Trachea midline. No JVD. CARDIOVASCULAR: Regular rate and rhythm. No murmur appreciated. RESPIRATORY: No accessory muscle use. Clear to auscultation. Breath sounds equal bilaterally. GASTROINTESTINAL: Abdomen soft, non-tender, nondistended. MUSCULOSKELETAL: No obvious deformities. No clubbing. No cyanosis. Moderate bilateral lower extremity edema. NEUROLOGICAL: Awake and alert. No obvious cranial nerve deficits. Motor grossly within normal limits. Normal speech. Normal range of motion in all joints and extremities without focal deficits. PSYCHIATRIC: Appropriate mood and affect; insight and judgment normal. Data Data Last Documented VS Vital Signs Date Time Temp Pulse Resp B/P (MAP) Pulse Ox O2 Delivery O2 Flow Rate FiO2 11/07/17 17:37 62 22 117/57 (77) 100 Room Air 11/07/17 14:27 98.1 Orders Orders Electrocardiogram (11/07/17 14:32) Complete Blood Count With Diff (11/07/17 14:32) Comprehensive Metabolic Panel (11/07/17 14:32) Magnesium (Mg) (11/07/17 14:32) Ckmb (Isoenzyme) Profile (11/07/17 14:32) Troponin I (11/07/17 14:32) Act Partial Throm Time (Ptt) (11/07/17 14:32) Prothrombin Time / Inr (Pt) (11/07/17 14:32) Urinalysis - C+S If Indicated (11/07/17 14:32) CKMB (11/07/17 15:47) CKMB% (11/07/17 15:47) Ct Brain W/O Iv Contrast(Rout) (11/07/17 ) Urinary Catheter Insert/Apply (11/07/17 17:37) Sodium Chlor 0.9% 1000 Ml Inj (Ns 1000 M (11/07/17 17:45) Ct Cerv Spine W/O Contrast (11/07/17 ) Urine Culture (11/07/17 17:31) Ceftriaxone Inj (Rocephin Inj) (11/07/17 19:00) Admit To Inpatient (11/07/17 ) Vital Signs (Adult) Q4H (11/07/17 19:06) Activity Oob With Assistance (11/07/17 19:06) Manager Erp / Telemetry .CONTINUOUS (11/07/17 19:06) Diet Heart Healthy (11/08/17 Breakfast) Sodium Chlor 0.9% 1000 Ml Inj (Ns 1000 M (11/07/17 19:00) Sodium Chloride 0.9% Flush (Ns Flush) (11/07/17 19:15) Sodium Chloride 0.9% Flush (Ns Flush) (11/07/17 21:00) Basic Metabolic Panel (Bmp) (11/08/17 06:00) Complete Blood Count With Diff (11/08/17 06:00) Pt Request For Service (11/07/17 19:06) Case Management Consult (11/07/17 19:06) Naloxone Inj (Narcan Inj) (11/07/17 19:15) Inpatient Certification (11/07/17 ) Ceftriaxone Inj (Rocephin Inj) (11/08/17 19:15) Sodium Chlor 0.9% 1000 Ml Inj (Ns 1000 M (11/07/17 19:15) Labs Laboratory Tests Test 11/07/17 15:47 11/07/17 17:31 White Blood Count 9.4 TH/MM3 Red Blood Count 4.52 MIL/MM3 Hemoglobin 14.1 GM/DL Hematocrit 42.5 % Mean Corpuscular Volume 94.0 FL Mean Corpuscular Hemoglobin 31.2 PG Mean Corpuscular Hemoglobin Concent 33.2 % Red Cell Distribution Width 13.9 % Platelet Count 241 TH/MM3 Mean Platelet Volume 7.9 FL Neutrophils (%) (Auto) 60.1 % Lymphocytes (%) (Auto) 27.2 % Monocytes (%) (Auto) 10.9 % Eosinophils (%) (Auto) 1.2 % Basophils (%) (Auto) 0.6 % Neutrophils # (Auto) 5.6 TH/MM3 Lymphocytes # (Auto) 2.5 TH/MM3 Monocytes # (Auto) 1.0 TH/MM3 Eosinophils # (Auto) 0.1 TH/MM3 Basophils # (Auto) 0.1 TH/MM3 CBC Comment DIFF FINAL Differential Comment Prothrombin Time 10.2 SEC Prothromb Time International Ratio 1.0 RATIO Activated Partial Thromboplast Time 25.9 SEC Blood Urea Nitrogen 41 MG/DL Creatinine 2.49 MG/DL Random Glucose 101 MG/DL Total Protein 7.6 GM/DL Albumin 3.9 GM/DL Calcium Level 8.9 MG/DL Magnesium Level 1.8 MG/DL Alkaline Phosphatase 38 U/L Aspartate Amino Transf (AST/SGOT) 86 U/L Alanine Aminotransferase (ALT/SGPT) 28 U/L Total Bilirubin 0.2 MG/DL Sodium Level 139 MEQ/L Potassium Level 5.4 MEQ/L Chloride Level 105 MEQ/L Carbon Dioxide Level 22.4 MEQ/L Anion Gap 12 MEQ/L Estimat Glomerular Filtration Rate 19 ML/MIN Total Creatine Kinase 1558 U/L Creatine Kinase MB 22.4 NG/ML Creatine Kinase MB % 1.4 % Troponin I LESS THAN 0.02 NG/ML Urine Color YELLOW Urine Turbidity HAZY Urine pH 5.5 Urine Specific Mccoll 1.019 Urine Protein NEG mg/dL Urine Glucose (UA) NEG mg/dL Urine Ketones NEG mg/dL Urine Occult Blood NEG Urine Nitrite NEG Urine Bilirubin NEG Urine Urobilinogen LESS THAN 2.0 MG/DL Urine Leukocyte Esterase LARGE Urine RBC LESS THAN 1 /hpf Urine WBC 15 /hpf Urine Squamous Epithelial Cells 2 /hpf Urine Amorphous Sediment RARE Urine Bacteria MOD /hpf Urine Hyaline Casts 15 /lpf Urine Mucus FEW /lpf Microscopic Urinalysis Comment CULTURE INDICATED MDM Medical Decision Making Medical Screen Exam Complete: Yes Emergency Medical Condition: Yes Differential Diagnosis Intracranial abnormality, metabolic abnormality, UTI, anemia Narrative Course Vital signs reviewed. CBC is essentially unremarkable. CMP is remarkable for potassium 5.4, BUN 41, creatinine 2.49, GFR 19, AST 86. Total CK is 1558. Troponin is negative. UA shows large leukocyte esterase, 15 WBCs, moderate bacteria, few mucus. CT brain: CONCLUSION: 1. Remote lacunar infarct on the left. Chronic white matter ischemic changes. No acute intracranial hemorrhage or mass effect. CT cervical spine: CONCLUSION: 1. Fusion across C4-5-6-7 as above. Mild kyphosis upper cervical spine. No acute fracture. Patient was made aware of all findings. She was given 1 g of IV Rocephin. She was also given 2 L normal saline IV and a Solitario catheter will be placed. She will be admitted for further treatment and evaluation of generalized weakness, rhabdomyolysis, UTI. Case discussed with hospitalist Dr. Lamar who will admit the patient to the medical service. Diagnosis Primary Impression: Rhabdomyolysis Qualified Codes: M62.82 - Rhabdomyolysis Additional Impressions: Generalized weakness UTI (urinary tract infection) Qualified Codes: N39.0 - Urinary tract infection, site not specified Admitting Information Admitting Physician Requests: Admit Tony Zabala MD Nov 07, 2017 17:43
[2017-11-07] MEDS ORDERED: SODIUM CHLOR 0.9% 1000 ML INJ 1,000 ML IV ONE ×2 (17:45→19:15)
[2017-11-07 18:42] LABS: AMORPHOUS SEDIMENT, URINE RARE; BACTERIA, URINE MOD /hpf; BILIRUBIN, URINE NEG (NEG); BLOOD, URINE NEG (NEG); GLUCOSE,URINE NEG (NEG); HYALINE CAST, URINE 15 /lpf (RARE); KETONE, URINE NEG (NEG); MUCUS URINE FEW /lpf (OCC); NITRITE,URINE NEG (NEG); PH, URINE 5.5 (5.0-8.5); SQUAMOUS EPITHELIAL CELL URINE 2 /hpf (0-5); URINE COLOR YELLOW (YELLW/STRAW); URINE LEUKOCYTE ESTERASE LARGE (NEG)
--- NOTE | 2017-11-07 18:46 | RADRPT ---
EXAM DATE/TIME: 11/07/2017 18:08 [facility] COMPARISON: No previous studies available for comparison. INDICATIONS : Fall generalized weakness. RADIATION DOSE: 56.35 CTDIvol (mGy) MEDICAL HISTORY : Cardiovascular disease. Hypertension. Diabetes SURGICAL HISTORY : Hysterectomy. Back surgery ENCOUNTER: Initial ACUITY: 3 days PAIN SCALE: 8/10 LOCATION: cranial TECHNIQUE: Multiple contiguous axial images were obtained of the head. Using automated exposure control and adj ustment of the mA and/or kV according to patient size, radiation dose was kept as low as reasonably a chievable to obtain optimal diagnostic quality images. DICOM format image data is available electro nically for review and comparison. FINDINGS: There is a remote lacunar infarct in the deep white matter on the left measuring 1.2 cm. These chroni c ischemic changes in the periventricular white matter. No mass, hemorrhage or shift. No hydrocephalu s. No acute bony abnormalities. CONCLUSION: 1. Remote lacunar infarct on the left. Chronic white matter ischemic changes. No acute intracranial h emorrhage or mass effect. Chon Franklin MD on November 07, 2017 at 18:40 Board Certified Radiologist. This report was verified electronically.
[2017-11-07] MEDS ORDERED: cefTRIAXone INJ 1,000 MG in SODIUM CHLORIDE 0.9% INJ 100 ML IV ONE (19:00)
--- NOTE | 2017-11-07 19:03 | RADRPT ---
EXAM DATE/TIME: 11/07/2017 18:08 [facility] COMPARISON: No previous studies available for comparison. INDICATIONS : Fall, generalized weakness RADIATION DOSE: 44.35 CTDIvol (mGy) MEDICAL HISTORY : Cardiovascular disease. Hypertension. Diabetes SURGICAL HISTORY : Hysterectomy. ENCOUNTER: Initial ACUITY: 1 day PAIN SCALE: 8/10 LOCATION: neck TECHNIQUE: Volumetric scanning of the cervical spine was performed. Multiplanar reconstructions in the sagittal, coronal and oblique axial planes were performed. Using automated exposure control and adjustment o f the mA and/or kV according to patient size, radiation dose was kept as low as reasonably achievable to obtain optimal diagnostic quality images. DICOM format image data is available electronically f or review and comparison. FINDINGS: There is anterior plate and screw fixation across C4-5-6-7 with solid bony union across the disc spac es. There is also fusion of the posterior facet joints at C4-5-6-7. There is no residual significant canal stenosis and area of fusion. There is mild kyphotic angulation at C3-4. There is no acute fract ure or significant spondylolisthesis. CONCLUSION: 1. Fusion across C4-5-6-7 as above. Mild kyphosis upper cervical spine. No acute fracture. Chon Franklin MD on November 07, 2017 at 18:57 Board Certified Radiologist. This report was verified electronically.
[2017-11-07] MEDS: SODIUM CHLOR 0.9% 1000 ML INJ 1,000 ML IV SCH ×2 (19:14→20:03)
[2017-11-07] MEDS ORDERED: NALOXONE HCL 0.4 MG/ML AMP IV PUSH PRN (19:15)
[2017-11-07] MEDS ORDERED: SODIUM CHLORIDE 0.9% FLUSH 10 ML FLUSH IV FLUSH PRN (19:15)
[2017-11-07] MEDS: SODIUM CHLORIDE 0.9% FLUSH 10 ML FLUSH IV FLUSH SCH (19:38)
[2017-11-07] MEDS ORDERED: SODIUM POLYSTYRENE SULFONATE SUSP 15 GM/60 ML CUP PO ONE (21:15)
--- NOTE | 2017-11-07 21:28 | HHI.HP ---
HPI Service [facility] Primary Care Physician Deedee Ferreira M.D. 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 Patient states her weakness has been progressively worsening until she was unable to stand or walk herself to her bedside commode. She also states she was unable to dress herself. These activities which she is normally able to do without assistance. The patient is also concerned about a left hand tremor which has been going on for approximately one week. She states her mother of Parkinson's disease and she was her primary caregiver. The patient denies any chest pain or shortness of breath. No fever/chills. No abdominal pain. No nausea/vomiting/diarrhea. 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, GERD, depression, OA, hyperlipidemia, RA Past Surgical History Cataract Cardiac cath C Section Tubal ligation Hysterectomy A/P repair Back surgery Neck surgery Reported Medications Reported Meds & Active Scripts Active Hydrocodone-Acetaminophen 7.5-325 mg Tab 1 Tab PO Q4H PRN Reported Flexeril (Cyclobenzaprine HCl) 5 Mg Tab 5 Mg PO TID PRN [place] (Hydrocodone-Acetaminophen) 7.5-325 mg Tab 2 Tab PO Q6H PRN Vitamin B-1 (Thiamine HCl) 100 Mg Tab 150 Mg PO DAILY Calcium/Magnesium/Zinc (Townmcu-Ubbwjpxhd-Dung) 333-133-5 Mg Tab 1 Tab PO Glucosamine Chondroitin (Xzgbdxhzbvs-Hxvvbxmnpjq-Zak C-) 1 Tab Tab 1 Tab PO TID Multi Vitamin (Multiple Vitamin) 1 Tab Tab 1 Tab PO DAILY E-400 (Vitamin E) 400 Unit Cap 1 Cap PO DAILY Aspirin 81 Mg Tabdr 81 Mg PO DAILY Vitamin D (Cholecalciferol) 400 Unit/Ml Drops 400 Units PO DAILY Ultra Coq10 (Ubiquinone) 75 Mg Cap 75 Mg PO BID Cranberry Urinary Comfort (Vitamins C & E) 1 Cap 2 Cap PO DAILY Methenamine Hippurate 1 Gm Tab 1 Gm PO BID Probiotic (Saccharomyces Boulardii) 250 Mg Cap 250 Mg PO BID Ditropan (Oxybutynin Chloride) 5 Mg Tab 10 Mg PO DAILY Gabapentin 100 Mg Cap 100 Mg PO TID Nitroglycerin SL (Nitroglycerin) 0.4 Mg Subl 0.4 Mg SL DIRECTED PRN ONE TABLET UNDER THE TONGUE NEEDED FOR CHEST PAIN, MAY REPEAT EVERY FIVE MINUTES FOR A TOTAL OF 3 DOSES OR CALL 911 IF NO RELIEF Pantoprazole (Pantoprazole Sodium) 40 Mg Tab 40 Mg PO DAILY Isosorbide Mononitrate ER (Isosorbide Mononitrate) 30 Mg Linnette 30 Mg PO DAILY Temazepam 30 Mg Cap 30 Mg PO HS PRN Simvastatin 40 Mg Tab 40 Mg PO HS Metoprolol Tartrate 100 Mg Tab 100 Mg PO DAILY Yfokp-2-Buno Ethyl Esters 1 Gm Cap 2 Gm PO BID Lisinopril-Hctz 20-25 Mg Tab 1 Tab PO DAILY Fluoxetine (Fluoxetine HCl) 20 Mg Cap 20 Mg PO DAILY Estradiol 1 Mg Tab 1 Mg PO ,TUE Clonazepam 0.5 Mg Tab 0.5 Mg PO BID Allergies: Coded Allergies: No Known Allergies (Verified Adverse Reaction, Unknown, 11/07/17) Family History Negative for CAD/TM Social History Denies alcohol, tobacco and illicit drugs Physical Exam Vital Signs Vital Signs Date Time Temp Pulse Resp B/P (MAP) Pulse Ox O2 Delivery O2 Flow Rate FiO2 11/07/17 20:35 11/07/17 19:00 58 12 109/52 (71) 96 Room Air 11/07/17 18:00 58 14 95/47 (63) 96 Room Air 11/07/17 17:37 62 22 117/57 (77) 100 Room Air 11/07/17 14:27 98.1 55 20 112/62 (79) 95 Physical Exam GENERAL: Obese, female lying in bed SKIN: No rashes, ecchymoses or lesions. Cool and dry. HEAD: Atraumatic. Normocephalic. No temporal or scalp tenderness. EYES: Pupils equal round and reactive. Extraocular motions intact. No scleral icterus. No injection or drainage. ENT: Nose without bleeding, purulent drainage or septal hematoma. Throat without erythema, tonsillar hypertrophy or exudate. Uvula midline. Airway patent. NECK: Trachea midline. No JVD or lymphadenopathy. Supple, nontender, no meningeal signs. CARDIOVASCULAR: Regular rate and rhythm without murmurs, gallops, or rubs. RESPIRATORY: Clear to auscultation. Breath sounds equal bilaterally. No wheezes , rales, or rhonchi. GASTROINTESTINAL: Abdomen soft, non-tender, nondistended. No hepato-splenomegaly , or palpable masses. No guarding. MUSCULOSKELETAL: Extremities without clubbing, cyanosis, or edema. No joint tenderness, effusion, or edema noted. No calf tenderness. NEUROLOGICAL: Awake and alert. Cranial nerves II through XII intact. Able to move all extremities spontaneously. Laboratory Laboratory Tests Test 11/07/17 15:47 11/07/17 17:31 White Blood Count 9.4 Red Blood Count 4.52 Hemoglobin 14.1 Hematocrit 42.5 Mean Corpuscular Volume 94.0 Mean Corpuscular Hemoglobin 31.2 Mean Corpuscular Hemoglobin Concent 33.2 Red Cell Distribution Width 13.9 Platelet Count 241 Mean Platelet Volume 7.9 Neutrophils (%) (Auto) 60.1 Lymphocytes (%) (Auto) 27.2 Monocytes (%) (Auto) 10.9 Eosinophils (%) (Auto) 1.2 Basophils (%) (Auto) 0.6 Neutrophils # (Auto) 5.6 Lymphocytes # (Auto) 2.5 Monocytes # (Auto) 1.0 Eosinophils # (Auto) 0.1 Basophils # (Auto) 0.1 CBC Comment DIFF FINAL Differential Comment Prothrombin Time 10.2 Prothromb Time International Ratio 1.0 Activated Partial Thromboplast Time 25.9 Blood Urea Nitrogen 41 Creatinine 2.49 Random Glucose 101 Total Protein 7.6 Albumin 3.9 Calcium Level 8.9 Magnesium Level 1.8 Alkaline Phosphatase 38 Aspartate Amino Transf (AST/SGOT) 86 Alanine Aminotransferase (ALT/SGPT) 28 Total Bilirubin 0.2 Sodium Level 139 Potassium Level 5.4 Chloride Level 105 Carbon Dioxide Level 22.4 Anion Gap 12 Estimat Glomerular Filtration Rate 19 Total Creatine Kinase 1558 Creatine Kinase MB 22.4 Creatine Kinase MB % 1.4 Troponin I LESS THAN 0.02 Urine Color YELLOW Urine Turbidity HAZY Urine pH 5.5 Urine Specific Cooks 1.019 Urine Protein NEG Urine Glucose (UA) NEG Urine Ketones NEG Urine Occult Blood NEG Urine Nitrite NEG Urine Bilirubin NEG Urine Urobilinogen LESS THAN 2.0 Urine Leukocyte Esterase LARGE Urine RBC LESS THAN 1 Urine WBC 15 Urine Squamous Epithelial Cells 2 Urine Amorphous Sediment RARE Urine Bacteria MOD Urine Hyaline Casts 15 Urine Mucus FEW Microscopic Urinalysis Comment CULTURE INDICATED Date/Time Source Procedure Growth Status 11/07/17 17:31 Urine Random Urine Urine Culture Pending Received Result Diagram: 11/07/17 1547 11/07/17 1547 Caprini VTE Risk Assessment Caprini VTE Risk Assessment: Mod/High Risk (score >= 2) Caprini Risk Assessment Model Point Value = 1 Point Value = 2 Point Value = 3 Point Value = 5 Age 41-60 Minor surgery BMI > 25 kg/m2 Swollen legs Varicose veins or History of unexplained or recurrent spontaneous Oral contraceptives or hormone replacement Sepsis (< 1 month) Serious lung disease, including pneumonia (< 1 month) Abnormal pulmonary function Acute myocardial infarction Congestive heart failure (< 1 month) History of inflammatory bowel disease Medical patient at bed rest Age 61-74 Arthroscopic surgery Major open surgery (> 45 min) Laparoscopic surgery (> 45 min) Malignancy Confined to bed (> 72 hours) Immobilizing plaster cast Central venous access Age >= 75 History of VTE Family history of VTE Factor V Leiden Prothrombin [id number] Lupus anticoagulant Anticardiolipin antibodies Elevated serum homocysteine Heparin-induced thrombocytopenia Other congenital or acquired thrombophilia Stroke (< 1 month) Elective arthroplasty Hip, pelvis, or leg fracture Acute spinal cord injury (< 1 month) Prophylaxis Regimen Total Risk Factor Score Risk Level Prophylaxis Regimen 0-1 Low Early ambulation 2 Moderate Order ONE of the following: *Sequential Compression Device (SCD) *Heparin 5000 units SQ BID 3-4 Higher Order ONE of the following medications: *Heparin 5000 units SQ TID *Enoxaparin/Lovenox 40 mg SQ daily (WT < 150 kg, CrCl > 30 mL/min) *Enoxaparin/Lovenox 30 mg SQ daily (WT < 150 kg, CrCl > 10-29 mL/min) *Enoxaparin/Lovenox 30 mg SQ BID (WT < 150 kg, CrCl > 30 mL/min) AND/OR *Sequential Compression Device (SCD) 5 or more Highest Order ONE of the following medications: *Heparin 5000 units SQ TID (Preferred with Epidurals) *Enoxaparin/Lovenox 40 mg SQ daily (WT < 150 kg, CrCl > 30 mL/min) *Enoxaparin/Lovenox 30 mg SQ daily (WT < 150 kg, CrCl > 10-29 mL/min) *Enoxaparin/Lovenox 30 mg SQ BID (WT < 150 kg, CrCl > 30 mL/min) AND *Sequential Compression Device (SCD) Assessment and Plan Assessment and Plan Assessment/plan: 1. Rhabdomyolysis CK 1558 Monitor renal function IV fluid hydration 2. Hyperkalemia Potassium 5.4, no EKG changes, personally reviewed Kayexalate Repeat BMP 3. Urinary tract infection UA consistent with UTI Urine culture pending Rocephin 4. Acute kidney injury BUN/creatinine 41/2.49, baseline 0.6-0.9 Renal ultrasound pending IV fluid hydration Monitor renal function - consider nephrology consult if renal function does not improve 5. Weakness Likely secondary to the above Head CT negative for acute process Physical therapy consulted, appreciate assistance 6. Hypertension/GERD/depression/hyperlipidemia Continue home medications once reconciled FEN Renal diet Electrolytes: As above NS at 175 cc/hr Heparin Physician Certification 2 Midnight Certification Type: Admission for Inpatient Services Order for Inpatient Services The services are ordered in accordance with Medicare regulations or non- Medicare payer requirements, as applicable. In the case of services not specified as inpatient-only, they are appropriately provided as inpatient services in accordance with the 2-midnight benchmark. Estimated LOS (days): 2 2 days is the estimated time the patient will need to remain in the hospital, assuming treatment plan goals are met and no additional complications. Post-Hospital Plan: Not yet determined Gardenia Lamar MD Nov 07, 2017 21:28
[2017-11-08] VITALS (11 sets, daily range): BP systolic 101–122; BP diastolic 50–60; PULSE 59–67; RESP 16–19; TEMP 97.1–98.4; O2SAT 93–97
[2017-11-08] MEDS: ACETAMINOPHEN/HYDROcodone 325 MG/7.5 MG TAB PO PRN ×3 (01:27→18:59)
[2017-11-08] MEDS ORDERED: ACETAMINOPHEN/HYDROcodone 325 MG/7.5 MG TAB PO PRN (01:30)
[2017-11-08] MEDS: clonazePAM 0.5 MG TAB PO SCH ×3 (01:30→21:03)
[2017-11-08] MEDS: SODIUM CHLOR 0.9% 1000 ML INJ 1,000 ML IV SCH ×4 (02:46→21:03)
[2017-11-08] MEDS: ISOSORBIDE MONONITRATE 30 MG CR TAB (IMDUR) PO SCH (05:22)
[2017-11-08 05:25] LABS: AUTOMATED NEUTROPHIL # 3.3 TH/MM3 (1.8-7.7); BASOPHIL % 0.6 % (0.0-2.0); EOSINOPHIL # 0.1 TH/MM3 (0-0.4); EOSINOPHIL % 2.1 % (0.0-4.0); HEMATOCRIT 35.4 % (35.0-46.0); HEMOGLOBIN 11.9 GM/DL (11.6-15.3); LYMPHOCYTE # 2.2 TH/MM3 (1.0-4.8); MEAN CELL VOLUME 93.2 FL (80.0-100.0); MEAN CORPUSCULAR HEMOGLOBIN 31.3 PG (27.0-34.0); MEAN CORPUSCULAR HGB CONC 33.6 % (32.0-36.0); MEAN PLATELET VOLUME 7.8 FL (7.0-11.0); MONO % 10.4 % (0.0-8.0); MONOCYTE # 0.7 TH/MM3 (0-0.9); NEUT % 51.9 % (16.0-70.0); PLATELET COUNT 161 TH/MM3 (150-450); RED BLOOD COUNT 3.79 MIL/MM3 (4.00-5.30); RED CELL DISTRIBUTION WIDTH 13.7 % (11.6-17.2); WHITE BLOOD COUNT 6.4 TH/MM3 (4.0-11.0)
[2017-11-08 05:47] LABS: BICARBONATE 20.6 MEQ/L (21.0-32.0); CALCIUM 7.7 MG/DL (8.5-10.1); CREATININE 1.52 MG/DL (0.50-1.00)
[2017-11-08] MEDS: SODIUM CHLORIDE 0.9% FLUSH 10 ML FLUSH IV FLUSH SCH ×2 (07:24→21:00)
[2017-11-08] MEDS: OXYBUTYNIN CHLORIDE 5 MG TAB PO SCH (08:13)
[2017-11-08] MEDS: GABAPENTIN 100 MG CAP PO SCH ×3 (08:13→18:22)
[2017-11-08] MEDS: FLUoxetine HCL 20 MG CAP PO SCH (08:13)
[2017-11-08] MEDS: ASPIRIN EC 81 MG TABEC PO SCH (08:13)
[2017-11-08] MEDS: METOPROLOL SUCCINATE 50 MG EXTENDED RELEASE TAB PO SCH (08:13)
[2017-11-08] MEDS: PANTOPRAZOLE SOD 40 MG DELAYED RELEASE TAB PO SCH (08:13)
[2017-11-08] MEDS: HEPARIN SODIUM - SQ 10,000 UNITS/ML VIAL SQ SCH ×2 (08:14→21:07)
--- NOTE | 2017-11-08 09:23 | RADRPT ---
EXAM DATE/TIME: 11/08/2017 08:47 [facility] COMPARISON: No previous studies available for comparison. INDICATIONS : Increased lab values. MEDICAL HISTORY : Hypercholesterolemia. Gastroesophageal reflux disease. CVA. Dyspnea. Diabetes. SURGICAL HISTORY : section. Hysterectomy. Tubal ligation. Lumbar laminectomy. Spinal fusion. Cardiac catheteriz ation. Hysterectomy. bladder sling. ENCOUNTER: Initial ACUITY: 1 day PAIN SCORE: 0/10 LOCATION: Bilateral flank MEASUREMENTS: RIGHT KIDNEY: 8.9 x 5.0 x 4.8 cm LEFT KIDNEY: 9.1 x 3.3 x 4.9 cm FINDINGS: RIGHT KIDNEY: Renal cortex is normal in thickness and echotexture. No hydronephrosis, stone, or mass. LEFT KIDNEY: Renal cortex is normal in thickness and echotexture. No hydronephrosis, stone, or mass. BLADDER: Within normal limits given the degree of distension. CONCLUSION: No obstructive uropathy or other acute abnormality demonstrated. Flavio Parada MD on November 08, 2017 at 9:20 Board Certified Radiologist. This report was verified electronically.
--- NOTE | 2017-11-08 10:17 | HHI.PR ---
Subjective Remarks patient awake and alert, complains of pain mid back- sounds chronic baseline mostly bedbound and gets around mostly with a power chair states worsening pain past 2 weeks- states had imaging studies done as OP history of constipation - and states no BM x 3 days no nausea or vomiting- occasionally had to be disimpacted Objective Vitals Vital Signs Date Time Temp Pulse Resp B/P (MAP) Pulse Ox O2 Delivery O2 Flow Rate FiO2 11/08/17 08:00 97.4 62 18 112/58 (76) 94 11/08/17 04:00 98.2 67 18 101/50 (67) 96 11/08/17 03:54 67 11/08/17 00:00 98.4 63 19 122/59 (80) 97 11/07/17 22:43 94 11/07/17 22:20 68 11/07/17 21:00 97.8 64 21 116/74 (88) 98 11/07/17 20:35 11/07/17 19:00 58 12 109/52 (71) 96 Room Air 11/07/17 18:00 58 14 95/47 (63) 96 Room Air 11/07/17 17:37 62 22 117/57 (77) 100 Room Air 11/07/17 14:27 98.1 55 20 112/62 (79) 95 I/O 11/07/17 11/07/17 11/07/17 11/08/17 11/08/17 11/08/17 07:00 15:00 23:00 07:00 15:00 23:00 Intake Total 2100 ml 1000 ml Output Total 1000 ml 550 ml Balance 1100 ml 450 ml Intake IV Total 2100 ml 1000 ml Output Urine Total 1000 ml 550 ml # Bowel Movements 0 0 Result Diagram: 11/08/17 0450 11/08/17 0450 Imaging Last Impressions Renal Ultrasound 11/08/17 0000 Signed Impressions: Service Date/Time: Wednesday, November 08, 2017 08:47 - CONCLUSION: No obstructive uropathy or other acute abnormality demonstrated. Flavio Parada MD Head CT 11/07/17 0000 Signed Impressions: Service Date/Time: Tuesday, November 07, 2017 18:08 - CONCLUSION: 1. Remote lacunar infarct on the left. Chronic white matter ischemic changes. No acute intracranial hemorrhage or mass effect. Chon Franklin MD Cervical Spine CT 11/07/17 0000 Signed Impressions: Service Date/Time: Tuesday, November 07, 2017 18:08 - CONCLUSION: 1. Fusion across C4-5-6-7 as above. Mild kyphosis upper cervical spine. No acute fracture. Chon Franklin MD Objective Remarks awake and alert, oriented x 3 heavy set anicteric lungs- no rales, no wheezes regular rhythm abdomen- flabby, soft, nontender extremities - able to move/flex both legs and arms, limited by pain grossly nno sensory deficit, good peripheral pulses Urinary Catheter: Yes Assessment to: Continue Parks insert reason: Prolonged Immobilization Date of Insertion: Nov 07, 2017 A/P Assessment and Plan 77 years old female Rhabdomyolysis CK 1558- trended down significantly. FF CK Monitor renal function IV fluid hydration- decrease rate KRISTIN from rhabdomyolysis - keep parks- non oliguric contineu hydration- decrease rate renal US unremarakbel Hyperkalemia- resolved ff BMP Urinary tract infection UA consistent with UTI Urine culture pending Rocephin Weakness - recent fall - baseline- sounds like ;imited ambulation due to weight and chronic back apin Head CT negative for acute process get CT of the T/L spines Physical therapy consulted, appreciate assistance Hypertension/GERD/depression/hyperlipidemia Continue home medications once reconciled chronic constipation - prn laxative- will give us hher home regimen Obesity- BMI 45 - dietitian consult CM- DC planning- will need SNF Heaprin Sq for DVT prophylaxis Rashard Lei MD Nov 08, 2017 10:17
[2017-11-08] MEDS ORDERED: BISACODYL 10 MG SUPP RECTAL ONE (12:00)
[2017-11-08] MEDS: DOCUSATE SODIUM 50 MG/SENNA 8.6 MG TAB PO SCH (12:23)
--- NOTE | 2017-11-08 15:04 | RADRPT ---
EXAM DATE/TIME: 11/08/2017 13:11 [facility] COMPARISON: No previous studies available for comparison. INDICATIONS : Back pain RADIATION DOSE: 37.49 CTDIvol (mGy) ; Combined studies; Patient body habitus MEDICAL HISTORY : Cerebrovascular disease. Cardiovascular disease Hypertension.Diabetes SURGICAL HISTORY : Tubal ligation. Hysterectomy. ENCOUNTER: Initial ACUITY: 1 day PAIN SCALE: 4/10 LOCATION: Thoracic spine TECHNIQUE: Volumetric scanning of the thoracic spine was performed. Multiplanar reconstructions in the sagittal , coronal and oblique axial planes were performed. Using automated exposure control and adjustment o f the mA and/or kV according to patient size, radiation dose was kept as low as reasonably achievable to obtain optimal diagnostic quality images. DICOM format image data is available electronically f or review and comparison. FINDINGS: Very mild S. shaped curvature of the thoracic spine. No subluxation. Vertebral bodies have normal hei ght. Mild disc space narrowing with mild bilateral costovertebral and facet osteoarthritis seen at essenti ally all levels. Tiny posterior disc osteophyte complexes are noted at T6/T7, T7/T8 and T8/T9. No sig nificant foraminal or spinal stenosis demonstrated. CONCLUSION: Mild scoliosis and mild, multilevel/diffuse degenerative changes of the thoracic spine as above. No f racture, subluxation or significant foraminal or spinal stenosis. Flavio Parada MD on November 08, 2017 at 14:59 Board Certified Radiologist. This report was verified electronically.
--- NOTE | 2017-11-08 15:46 | RADRPT ---
EXAM DATE/TIME: 11/08/2017 13:11 [facility] COMPARISON: CT BRAIN W/O CONTRAST, November 07, 2017, 18:08. INDICATIONS : Lower back pain RADIATION DOSE: 37.49 CTDIvol (mGy) ; Combined studies; Patient body habitus MEDICAL HISTORY : Cerebrovascular disease. Cardiovascular disease Hypertension.Diabetes SURGICAL HISTORY : Tubal ligation. Hysterectomy. ENCOUNTER: Initial ACUITY: 1 day PAIN SCALE: 5/10 LOCATION: Lumbar spine TECHNIQUE: Volumetric scanning of the lumbar spine was performed. Multiplanar reconstructions in the sagittal, coronal and oblique axial planes were performed. Using automated exposure control and adjustment of the mA and/or kV according to patient size, radiation dose was kept as low as reasonably achievable t o obtain optimal diagnostic quality images. DICOM format image data is available electronically for review and comparison. FINDINGS: There are 5 lumbar type non-rib bearing vertebral bodies. There is been prior fusion across the L5-S1 levels. This fusion appears solid. There is a grade 1 anterolisthesis of L4 relative to L5. No acute compression fracture is identified. The paraspinous soft tissues are unremarkable. T12-L1: The thecal space and neural foramina are adequate. There is mild facet arthritis bilaterally. L1-L2: There is a degenerated disc. There is a small broad-based disc bulge. There is osteophytic ridging fr om the vertebral endplates. The residual thecal space and foramina appear adequate. L2-L3: There is a degenerated disc. There is broad-based disc bulge. There is mild facet arthritis bilateral ly. The thecal space and foramina appear adequate. L3-L4: There is a severely degenerated disc. There is broad-based disc bulge and diffuse osteophytic ridging . There is advanced facet arthritis bilaterally. The foramina appear adequate. The residual thecal sp adenike appears adequate. L4-L5: The fusion hardware from the lower lumbar spine at least partially obscured as this level. There is a degenerated disc with at least a broad-based disc bulge and facet arthritis bilaterally. L5-S1: This level is completely obscured by the fusion hardware. CONCLUSION: 1. The patient is fused across the L5-S1 level. This level is completely obscured by the fusion hardw are. The L4-5 level is partially obscured as well. 2. There is grade 1 anterolisthesis of L4 relative to L5. There are degenerative changes throughout t he lumbar spine as described above. 3. No acute compression fracture identified. Kings Becker MD on November 08, 2017 at 15:35 Board Certified Radiologist. This report was verified electronically.
--- NOTE | 2017-11-08 16:47 | EKG ---
Date Performed: 11/07/2017 Time Performed: 17:08:51 PTAGE: 77 years EKG: Sinus rhythm BORDERLINE LEFT AXIS DEVIATION Since previous tracing, no significant change noted BORDERLINE ECG PREVIOUS TRACING : 10/29/2016 12.02 DOCTOR: Stefano Lauren Interpretating Date/Time 11/08/2017 16:43:53
[2017-11-08] MEDS: cefTRIAXone INJ 1,000 MG in SODIUM CHLORIDE 0.9% INJ 100 ML IV SCH (21:02)
[2017-11-08] MEDS: PRAVASTATIN SOD 40 MG TAB PO SCH (21:03)
[2017-11-09] VITALS (9 sets, daily range): BP systolic 112–136; BP diastolic 54–66; PULSE 55–63; RESP 16–18; TEMP 97.5–98.3; O2SAT 95–97
[2017-11-09] MEDS: SODIUM CHLOR 0.9% 1000 ML INJ 1,000 ML IV SCH ×2 (05:17→08:12)
[2017-11-09] MEDS: ISOSORBIDE MONONITRATE 30 MG CR TAB (IMDUR) PO SCH (05:17)
[2017-11-09] MEDS: ACETAMINOPHEN/HYDROcodone 325 MG/7.5 MG TAB PO PRN ×3 (05:22→19:09)
[2017-11-09] MEDS: SODIUM CHLORIDE 0.9% FLUSH 10 ML FLUSH IV FLUSH SCH ×2 (07:21→21:00)
[2017-11-09 08:05] LABS: BICARBONATE 20.6 MEQ/L (21.0-32.0); CALCIUM 7.9 MG/DL (8.5-10.1); CREATININE 0.82 MG/DL (0.50-1.00)
[2017-11-09] MEDS: ASPIRIN EC 81 MG TABEC PO SCH (08:11)
[2017-11-09] MEDS: DOCUSATE SODIUM 50 MG/SENNA 8.6 MG TAB PO SCH (08:11)
[2017-11-09] MEDS: clonazePAM 0.5 MG TAB PO SCH ×2 (08:11→20:02)
[2017-11-09] MEDS: FLUoxetine HCL 20 MG CAP PO SCH (08:11)
[2017-11-09] MEDS: METOPROLOL SUCCINATE 50 MG EXTENDED RELEASE TAB PO SCH (08:11)
[2017-11-09] MEDS: GABAPENTIN 100 MG CAP PO SCH ×3 (08:11→17:11)
[2017-11-09] MEDS: PANTOPRAZOLE SOD 40 MG DELAYED RELEASE TAB PO SCH (08:11)
[2017-11-09] MEDS: HEPARIN SODIUM - SQ 10,000 UNITS/ML VIAL SQ SCH ×2 (08:11→20:02)
[2017-11-09] MEDS: OXYBUTYNIN CHLORIDE 5 MG TAB PO SCH (08:11)
--- NOTE | 2017-11-09 13:08 | HHI.PR ---
Subjective Remarks feeling better and stronger agreeable to rehab requesting for a "tastier" - diet no fever or chills Objective Vitals Vital Signs Date Time Temp Pulse Resp B/P (MAP) Pulse Ox O2 Delivery O2 Flow Rate FiO2 11/09/17 12:00 97.9 55 17 123/60 (81) 96 11/09/17 08:34 Room Air 11/09/17 08:00 97.7 59 16 118/60 (79) 97 11/09/17 04:00 Room Air 11/09/17 04:00 97.5 63 16 112/54 (73) 96 11/09/17 00:00 97.8 61 18 135/66 (89) 96 11/08/17 23:49 59 11/08/17 20:00 97.9 63 16 109/58 (75) 93 11/08/17 19:49 63 11/08/17 16:11 97.1 65 19 104/59 (74) 95 11/08/17 16:00 97.1 65 19 104/59 (74) 95 I/O 11/08/17 11/08/17 11/08/17 11/09/17 11/09/17 11/09/17 07:00 15:00 23:00 07:00 15:00 23:00 Intake Total 1000 ml 990 ml Output Total 550 ml 1500 ml 1000 ml Balance 450 ml -510 ml -1000 ml Intake Oral 990 ml IV Total 1000 ml Output Urine Total 550 ml 1500 ml 1000 ml # Voids 2 # Bowel Movements 0 Result Diagram: 11/08/17 0450 11/09/17 0637 Imaging Last Impressions Thoracic Spine CT 11/08/17 0000 Signed Impressions: Service Date/Time: Wednesday, November 08, 2017 13:11 - CONCLUSION: Mild scoliosis and mild, multilevel/diffuse degenerative changes of the thoracic spine as above. No fracture, subluxation or significant foraminal or spinal stenosis. Flavio Parada MD Renal Ultrasound 11/08/17 0000 Signed Impressions: Service Date/Time: Wednesday, November 08, 2017 08:47 - CONCLUSION: No obstructive uropathy or other acute abnormality demonstrated. Flavio Parada MD Lumbar Spine CT 11/08/17 0000 Signed Impressions: Service Date/Time: Wednesday, November 08, 2017 13:11 - CONCLUSION: 1. The patient is fused across the L5-S1 level. This level is completely obscured by the fusion hardware. The L4-5 level is partially obscured as well. 2. There is grade 1 anterolisthesis of L4 relative to L5. There are degenerative changes throughout the lumbar spine as described above. 3. No acute compression fracture identified. Kings Becker MD Head CT 11/07/17 0000 Signed Impressions: Service Date/Time: Tuesday, November 07, 2017 18:08 - CONCLUSION: 1. Remote lacunar infarct on the left. Chronic white matter ischemic changes. No acute intracranial hemorrhage or mass effect. Chon Franklin MD Cervical Spine CT 11/07/17 0000 Signed Impressions: Service Date/Time: Tuesday, November 07, 2017 18:08 - CONCLUSION: 1. Fusion across C4-5-6-7 as above. Mild kyphosis upper cervical spine. No acute fracture. Chon Franklin MD Objective Remarks awake and alert, oriented x 3 heavy set anicteric lungs- no rales, no wheezes regular rhythm abdomen- flabby, soft, nontender extremities - able to move/flex both legs and arms, no edema grossly nno sensory deficit, good peripheral pulses Urinary Catheter: Yes Assessment to: Remove Date of Insertion: Nov 07, 2017 Date of Removal: Nov 09, 2017 A/P Assessment and Plan 77 years old female Rhabdomyolysis- trended dwon CK 1558- trended down significantly. FF CK Monitor renal function IV fluid hydration- decrease rate encourage po - requesting for a "tastier" food KRISTIN from rhabdomyolysis- resolved - keep parks- non oliguric - - decrease IVF rate renal US unremarkable Hyperkalemia- resolved ff BMP E coli Urinary tract infection final c and s from 11/07 still pending Urine culture pending Rocephin Weakness - recent fall - baseline- sounds like ;imited ambulation due to weight and chronic back apin Head CT negative for acute process get CT of the T/L spines Physical therapy consulted, appreciate assistance- recommends rehab Hypertension/GERD/depression/hyperlipidemia Continue home medications once reconciled chronic constipation - prn laxative- will give us hher home regimen Morbid Obesity- BMI 45 - will need to be motivated with weight reduction - CM- DC planning- will need SNF- accepted to [facility]- per CM- tomorrow Heaprin Sq for DVT prophylaxis Lacierda,Alfea M. MD Nov 09, 2017 13:08
[2017-11-09] MEDS: cefTRIAXone INJ 1,000 MG in SODIUM CHLORIDE 0.9% INJ 100 ML IV SCH (20:01)
[2017-11-09] MEDS: PRAVASTATIN SOD 40 MG TAB PO SCH (20:02)
[2017-11-10] VITALS: BP 138/61; PULSE 60; PULSE 64; RESP 19; TEMP 97.9; O2SAT 96
[2017-11-10] MEDS: ACETAMINOPHEN/HYDROcodone 325 MG/7.5 MG TAB PO PRN ×2 (01:09→09:06)
[2017-11-10 04:00] VITALS: BP 116/69; PULSE 54; PULSE 58; RESP 14; TEMP 97.9; O2SAT 98
[2017-11-10] MEDS: ISOSORBIDE MONONITRATE 30 MG CR TAB (IMDUR) PO SCH (05:42)
[2017-11-10 07:43] VITALS: BP 125/66; PULSE 59; RESP 16; TEMP 97.8; O2SAT 95
[2017-11-10 08:00] VITALS: PULSE 53
[2017-11-10] MEDS: GABAPENTIN 100 MG CAP PO SCH ×2 (08:56→13:02)
[2017-11-10] MEDS: DOCUSATE SODIUM 50 MG/SENNA 8.6 MG TAB PO SCH (08:56)
[2017-11-10] MEDS: ASPIRIN EC 81 MG TABEC PO SCH (08:56)
[2017-11-10] MEDS: OXYBUTYNIN CHLORIDE 5 MG TAB PO SCH (08:56)
[2017-11-10] MEDS: METOPROLOL SUCCINATE 50 MG EXTENDED RELEASE TAB PO SCH (08:57)
[2017-11-10] MEDS: clonazePAM 0.5 MG TAB PO SCH (08:57)
[2017-11-10] MEDS: FLUoxetine HCL 20 MG CAP PO SCH (08:57)
[2017-11-10] MEDS: PANTOPRAZOLE SOD 40 MG DELAYED RELEASE TAB PO SCH (08:57)
[2017-11-10] MEDS: SODIUM CHLORIDE 0.9% FLUSH 10 ML FLUSH IV FLUSH SCH (08:58)
[2017-11-10] MEDS: HEPARIN SODIUM - SQ 10,000 UNITS/ML VIAL SQ SCH (08:58)
[2017-11-10 11:57] VITALS: BP 123/64; PULSE 56; RESP 16; TEMP 98.1; O2SAT 95
--- NOTE | 2017-11-10 17:07 | HHI.DS ---
Discharge Summary Admission Date Nov 07, 2017 at 19:16 Discharge Date: Nov 10, 2017 Admitting Diagnosis Rhabdomyolysis, generalized weakness, UTI (1) Rhabdomyolysis ICD Code: M62.82 - Rhabdomyolysis (2) KRISTIN (acute kidney injury) ICD Code: N17.9 - Acute kidney failure, unspecified (3) UTI (urinary tract infection) ICD Code: N39.0 - Urinary tract infection Status: Acute (4) Obesity ICD Code: E66.9 - Obesity, unspecified Status: Acute (5) Hypertension ICD Code: I10 - Hypertension Status: Acute (6) GERD (gastroesophageal reflux disease) ICD Code: K21.9 - Gastroesophageal reflux disease Status: Acute (7) Depression ICD Code: F32.9 - Depression Status: Acute Procedures See below Brief History - From Admission 77-year-old female with a past medical history significant for hypertension, right-sided weakness secondary to traumatic brain injury, GERD, depression, OA, hyperlipidemia and RA since the emergency department for evaluation of weakness 1 week. Patient states her weakness has been progressively worsening until she was unable to stand or walk herself to her bedside commode. She also states she was unable to dress herself. These activities which she is normally able to do without assistance. The patient is also concerned about a left hand tremor which has been going on for approximately one week. She states her mother of Parkinson's disease and she was her primary caregiver. The patient denies any chest pain or shortness of breath. No fever/chills. No abdominal pain. No nausea/vomiting/diarrhea. CBC/BMP: 11/08/17 0450 11/09/17 0637 Significant Findings Laboratory Tests Test 11/07/17 17:31 11/08/17 04:50 11/09/17 06:37 Urine Turbidity HAZY (CLEAR) Urine Leukocyte Esterase LARGE (NEG) Urine WBC 15 /hpf (0-5) Urine Bacteria MOD /hpf (NONE) Urine Mucus FEW /lpf (OCC) Red Blood Count 3.79 MIL/MM3 (4.00-5.30) Monocytes (%) (Auto) 10.4 % (0.0-8.0) Blood Urea Nitrogen 35 MG/DL (7-18) Creatinine 1.52 MG/DL (0.50-1.00) Calcium Level 7.7 MG/DL (8.5-10.1) 7.9 MG/DL (8.5-10.1) Chloride Level 116 MEQ/L (98-107) 116 MEQ/L (98-107) Carbon Dioxide Level 20.6 MEQ/L (21.0-32.0) 20.6 MEQ/L (21.0-32.0) Estimat Glomerular Filtration Rate 33 ML/MIN (>89) 68 ML/MIN (>89) Total Creatine Kinase 822 U/L (26-192) 330 U/L (26-192) Creatine Kinase MB 10.7 NG/ML (0.5-3.6) PE at Discharge awake and alert, oriented x 3 heavy set anicteric lungs- no rales, no wheezes regular rhythm abdomen- flabby, soft, nontender extremities - able to move/flex both legs and arms, no edema grossly nno sensory deficit, good peripheral pulses Hospital Course 77 years old female admitted with rhabdomyolysis CK 1558 at admission, KRISTIN and hyperkalemia, she had an E. coli UTI for which she was placed on antibiotic along with weakness hypertension GERD hyperlipidemia, patient placed on IV hydration renal failure workup has been done patient improved CK trending down, creatinine back to normal, patient was advised to improve oral intake and fluid and to follow-up with PCP after discharge Pt Condition on Discharge: Stable Discharge Disposition: Discharge to SNF Discharge Time: <= 30 minutes Discharge Instructions DIET: Follow Instructions for: Heart Healthy Diet Activities you can perform: See Additionl Instruction Other Activity Instructions: per PT Follow up Referrals: SNF/JON/ with [facility] Continued Medications: Aspirin (Aspirin) 81 Mg Tabdr 81 MG PO DAILY, TAB Ncnvplp-Uvwpbwdbg-Oebm (Calcium/Magnesium/Zinc) 333-133-5 Mg Tab 1 TAB PO, TAB Cholecalciferol (Vitamin D) 400 Unit/Ml Drops 400 UNITS PO DAILY, #1 BOTTLE Clonazepam (Clonazepam) 0.5 Mg Tab 0.5 MG PO BID, #60 TAB 0 Refills Estradiol (Estradiol) 1 Mg Tab 1 MG PO tues,fri for Estrogen Supplements, #30 TAB 0 Refills Fluoxetine (Fluoxetine) 20 Mg Cap 20 MG PO DAILY, #30 CAP 0 Refills Gabapentin (Gabapentin) 100 Mg Cap 100 MG PO TID, #90 CAP 0 Refills Isosorbide Mononitrate ER (Isosorbide Mononitrate ER) 30 Mg Linnette 30 MG PO DAILY for Prevent Chest Pain, #30 TAB 0 Refills Methenamine Hippurate (Methenamine Hippurate) 1 Gm Tab 1 GM PO BID for Infection, TAB 0 Refills Metoprolol Tartrate (Metoprolol Tartrate) 100 Mg Tab 100 MG PO DAILY, #30 TAB 0 Refills Nitroglycerin SL (Nitroglycerin SL) 0.4 Mg Subl 0.4 MG SL DIRECTED PRN for CHEST PAIN, #100 TAB.SL 0 Refills ONE TABLET UNDER THE TONGUE NEEDED FOR CHEST PAIN, MAY REPEAT EVERY FIVE MINUTES FOR A TOTAL OF 3 DOSES OR CALL 911 IF NO RELIEF Tqdub-6-Ozva Ethyl Esters (Kmufi-7-Gwcs Ethyl Esters) 1 Gm Cap 2 GM PO BID for Manage Triglycerides, #120 CAP 0 Refills Oxybutynin (Ditropan) 5 Mg Tab 10 MG PO DAILY for Urinary Symptom Managemen, #60 TAB 0 Refills Pantoprazole (Pantoprazole) 40 Mg Tab 40 MG PO DAILY for Reflux, #30 TAB 0 Refills Saccharomyces Boulardii (Probiotic) 250 Mg Cap 250 MG PO BID for Nutritional Supplement, CAP 0 Refills Simvastatin (Simvastatin) 40 Mg Tab 40 MG PO HS for Cholesterol Management, #30 TAB 0 Refills Thiamine (Vitamin B-1) 100 Mg Tab 150 MG PO DAILY for Nutritional Supplement, TAB 0 Refills Ubiquinone (Ultra Coq10) 75 Mg Cap 75 MG PO BID Asad Perez MD Nov 10, 2017 17:07
== END 2017-11-10 13:20 | DRG 558 ==
LOC: NEPE 14:07 → NEDA 19:16 → N04A 20:39
PROVIDERS: ADMIT Hospitalist; ATTEND Hospitalist
DX: M62.82 Rhabdomyolysis (principal); N17.9 Acute kidney failure, unspecified; E87.5 Hyperkalemia; N39.0 Urinary tract infection, site not specified; Z68.42 Body mass index [BMI] 45.0-49.9, adult; M06.9 Rheumatoid arthritis, unspecified; E66.01 Morbid (severe) obesity due to excess calories; I10 Essential (primary) hypertension; K21.9 Gastro-esophageal reflux disease without esophagitis; E78.5 Hyperlipidemia, unspecified; F32.9 Major depressive disorder, single episode, unspecified; B96.20 Unspecified Escherichia coli [E. coli] as the cause of diseases classified elsewhere; Z79.82 Long term (current) use of aspirin; Z79.899 Other long term (current) drug therapy; K59.09 Other constipation; Z98.1 Arthrodesis status; Z90.710 Acquired absence of both cervix and uterus
CPT/HCPCS: 51702; 70450; 72125; 72128; 72131; 76775; 80048; 80053; 81001; 82550; 82552; 83735; 84484; 85025; 85610; 85730; 87077; 87086; 87186; 93005; 96360; J0696; J1644; J7030

== ENCOUNTER 2018-01-27 15:53 | Emergency (ER) | payer MEDICARE ==
[~2018-01-27] VITALS: Ht 157.5 cm; Wt 113.5 kg
[2018-01-27 16:22] VITALS: BP 201/98; PULSE 57; RESP 16; TEMP 98.6; O2SAT 99
--- NOTE | 2018-01-27 18:48 | PD ---
HPI Chief Complaint: Injury Time Seen by Provider: 18:43 Travel History International Travel<30 days: No Contact w/Intl Traveler<30days: No Traveled to known affect area: No History of Present Illness HPI 77-year-old female with history of remote CVA, hypertension, CAD, presents emergency department for evaluation of right shoulder pain. Patient states about 5 days ago she woke up and she had pain in her right shoulder. She states at times there is a spasm that goes into her arm and other times the shoulder just aches. Pain is moderate in severity. Pain is exacerbated with abduction greater than 90 or palpation of the posterior shoulder. She denies any injury. She does not recall sleeping differently. She denies any chest pain or shortness of breath. She denies any fever or chills. Patient does have history of cervical fusion and is she is concerned that this may be the source of her pain. She has no other symptoms to report at this time. PFSH Past Medical History Hx Anticoagulant Therapy: No Arthritis: Yes Asthma: No Autoimmune Disease: No Anxiety: Yes Depression: Yes Heart Rhythm Problems: No Cancer: No Cardiovascular Problems: Yes High Cholesterol: Yes Chemotherapy: No Chest Pain: No Congestive Heart Failure: No COPD: No Cerebrovascular Accident: Yes Diabetes: No (denies) Diminished Hearing: No Endocrine: No Gastrointestinal Disorders: Yes (GERD) GERD: Yes Glaucoma: No Genitourinary: Yes (INCONTINENT, BLADDER SLING, uti) Hepatitis: No Hiatal Hernia: No Hypertension: Yes Immune Disorder: No Kidney Stones: No Musculoskeletal: Yes (ARTHRITIS) Neurologic: Yes (RIGHT SIDE WEAKNESS) Psychiatric: Yes (DEPRESSION) Reproductive: No (hysterectomy) Respiratory: No Renal Failure: No Sleep Apnea: No Thyroid Disease: No Ulcer: No ?: Not Menopausal: Yes : 6 Para: 4 Miscarriage: 2 Tubal Ligation: Yes Past Surgical History Abdominal Surgery: Yes AICD: No Body Medical Devices: LUMBAR FUSION Cardiac Surgery: Yes (CARDIAC CATH) Section: Yes (x1) Ear Surgery: No Endocrine Surgery: No Eye Surgery: Yes (BILATERAL CATARACT REMOVAL) Genitourinary Surgery: Yes (A&P REPAIR) Gynecologic Surgery: Yes (C SECTION, HYSTERECTOMY) Hysterectomy: Yes Joint Replacement: No Oral Surgery: Yes (CAPS) Pacemaker: No Thoracic Surgery: No Other Surgery: Yes Social History Alcohol Use: No Tobacco Use: No Substance Use: No Allergies-Medications (Allergen,Severity, Reaction): Coded Allergies: No Known Allergies (Verified Adverse Reaction, Unknown, 01/27/18) Reported Meds & Prescriptions Reported Meds & Active Scripts Active Medrol Dosepak (Methylprednisolone) 4 Mg Dspk 4 Mg PO DIRECTED Per Pharmacist direction Robaxin (Methocarbamol) 500 Mg Tab 500 Mg PO QID PRN Reported Vitamin B-12 (Cyanocobalamin) 1,000 Mcg Tab 1,000 Mcg PO DAILY Aspirin Adult Low Strength (Aspirin) 81 Mg Tabdr 81 Mg PO DAILY Co Q-10 (Coenzyme Q10 (Ubidecarenone)) 200 Mg Cap 200 Mg PO BID Cranberry (Cranberry Fruit Extract) 500 Mg Capsule 500 Mg PO DAILY Msm (Methylsulfonylmethane) 1,000 Mg Cap 1,000 Mg PO DAILY Calcium & Magnesium + Zinc (Fpzjggj-Zqoufchwk-Aice) 334-134-5 Mg Tab 1 Tab PO DAILY Selenium 200 Mcg Tab 200 Mg PO DAILY Vitamin B Complex (B-Complex Vitamins) 1 Tab 1 Tab PO DAILY Myrbetriq (Mirabegron) 50 Mg Tab 50 Mg PO DAILY [place] (Hydrocodone-Acetaminophen) 10-325 Mg Tab 1 Tab PO Q6H PRN Fluoxetine (Fluoxetine HCl) 20 Mg Capsule 20 Mg PO DAILY Glucosamine-Chondroitin (Misc Natural Products) 1 Cap 1 Cap PO DAILY D 400 (Cholecalciferol) 400 Unit Tab 400 Units PO DAILY Vitamin C/Gloria Hips (Ascorbic Acid) 500 Mg Tab 500 Mg PO BID Oxybutynin ER 24 HR (Oxybutynin Chloride) 10 Mg Tab 10 Mg PO DAILY Metoprolol Succinate ER 24 HR (Metoprolol Succinate) 100 Mg Tab 100 Mg PO DAILY Estradiol 1 Mg Tab 1 Mg PO TUFR Take 1 tablet (1mg) dailt on Tuesday and Tuesday E-400 (Vitamin E) 400 Unit Cap 1 Cap PO DAILY Methenamine Hippurate 1 Gm Tab 500 Mg PO DAILY Probiotic (Saccharomyces Boulardii) 250 Mg Cap 250 Mg PO BID Gabapentin 100 Mg Cap 100 Mg PO TID Nitroglycerin SL (Nitroglycerin) 0.4 Mg Subl 0.4 Mg SL DIRECTED PRN ONE TABLET UNDER THE TONGUE NEEDED FOR CHEST PAIN, MAY REPEAT EVERY FIVE MINUTES FOR A TOTAL OF 3 DOSES OR CALL 911 IF NO RELIEF Pantoprazole (Pantoprazole Sodium) 40 Mg Tab 40 Mg PO DAILY Isosorbide Mononitrate ER (Isosorbide Mononitrate) 30 Mg Linnette 30 Mg PO DAILY Temazepam 30 Mg Cap 30 Mg PO HS PRN Simvastatin 40 Mg Tab 40 Mg PO HS Mvfla-2-Objl Ethyl Esters 1 Gm Cap 2 Gm PO BID Lisinopril-Hctz 20-25 Mg Tab 0.5 Tab PO DAILY Clonazepam 0.5 Mg Tab 0.5 Mg PO TID Review of Systems Except as stated in HPI: all other systems reviewed are Neg Physical Exam Narrative GENERAL: Well-nourished elderly female patient, lying in bed in no acute distress SKIN: Focused skin assessment warm/dry. HEAD: Atraumatic. Normocephalic. EYES: Pupils equal and round. No scleral icterus. No injection or drainage. ENT: No nasal bleeding or discharge. Mucous membranes pink and moist. NECK: Trachea midline. No JVD. No cervical spine tenderness to palpation. CARDIOVASCULAR: Regular rate and rhythm. RESPIRATORY: No accessory muscle use. Clear to auscultation. Breath sounds equal bilaterally. GASTROINTESTINAL: Abdomen soft, non-tender, nondistended. Hepatic and splenic margins not palpable. MUSCULOSKELETAL: Mild contracture of the right upper extremity hands, patient does hold the right elbow flexed and the arm close to her body. No clubbing. No cyanosis. No edema. Distal pulses are palpable. Cap refills within normal limits. Patient is able to actively abduct and adduct the right shoulder as well as rotator internally and externally without difficulty. She does report pain with external rotation and abduction greater than 90. Tenderness elicited palpation over the posterior right shoulder inferior to the trapezius musculature. NEUROLOGICAL: Awake and alert. No obvious cranial nerve deficits. Motor grossly within normal limits. Normal speech. PSYCHIATRIC: Appropriate mood and affect; insight and judgment normal. Data Data Last Documented VS Vital Signs Date Time Temp Pulse Resp B/P (MAP) Pulse Ox O2 Delivery O2 Flow Rate FiO2 01/27/18 21:30 01/27/18 21:30 52 20 96 01/27/18 16:22 98.6 Orders Orders Shoulder, Complete (>2vws) (01/27/18 ) Iv Access Insert/Monitor (01/27/18 18:46) Orphenadrine Inj (Norflex Inj) (01/27/18 19:00) Morphine Inj (Morphine Inj) (01/27/18 19:00) Ondansetron Odt (Zofran Odt) (01/27/18 19:00) Ct Cerv Spine W/O Contrast (01/27/18 ) Ketorolac Inj (Toradol Inj) (01/27/18 20:30) Ed Discharge Order (01/27/18 21:25) Orphenadrine Inj (Norflex Inj) (01/27/18 21:30) MDM Medical Decision Making Medical Screen Exam Complete: Yes Emergency Medical Condition: Yes Medical Record Reviewed: Yes Differential Diagnosis Osteoarthritic pain versus discogenic pain versus radiculopathy versus muscle spasm versus strain Narrative Course 77-year-old female presents emergency department for evaluation of right shoulder pain for 5 days with no preceding injury. Pain is exacerbated with movement or palpation. X-ray imaging shows osteoarthritic changes. I discussed the patient my attending physician who is also assessed the patient collected a history. We will move forward with CT imaging and cervical spine. Patient has been treated for pain. Last Impressions Shoulder X-Ray 01/27/18 0000 Signed Impressions: CONCLUSION: Mild osteoarthritis as described above. Cervical Spine CT 01/27/18 0000 Signed Impressions: CONCLUSION: 1. Extensive postsurgical changes without recurrent disc protrusion or stenosi s. Foraminal narrowing as above Findings are discussed with the patient. patient will be discharged home on Medrol Dosepak and with muscle relaxant. She is encouraged to follow-up with her primary care provider and seek orthopedic evaluation. She agrees to return immediately with acute worsening symptoms. Diagnosis Primary Impression: Right shoulder pain Qualified Codes: M25.511 - Pain in right shoulder Additional Impression: Muscle spasm Referrals: Orthopaedic Surgeon Primary Care Physician Patient Instructions: Arthritis (ED), General Instructions, Muscle Spasm (ED) Additional Instructions: Warm heat and light massage may help to alleviate your symptoms Follow-up with your primary care provider Seek orthopedic evaluation Return immediately with acute worsening symptoms Med/Other Pt SpecificInfo: Prescription(s) given Scripts Methylprednisolone Dosepak (Medrol Dosepak) 4 Mg Dspk 4 MG PO DIRECTED, #1 DSPK 0 Refills Per Pharmacist direction Prov: Mai Zepeda 01/27/18 Methocarbamol (Robaxin) 500 Mg Tab 500 MG PO QID Y for MUSCLE SPASM, #20 TAB 0 Refills Prov: Mai Zepeda 01/27/18 Disposition: 01 DISCHARGE HOME Condition: Stable Mai Zepeda Jan 27, 2018 18:48
[2018-01-27] MEDS ORDERED: ONDANSETRON ODT 4 MG TAB PO ONE (19:00)
[2018-01-27] MEDS ORDERED: ORPHENADRINE INJ 60 MG/2 ML AMP IM ONE ×2 (19:00→21:30)
[2018-01-27] MEDS ORDERED: MORPHINE SULFATE 4 MG/ML INJ IV PUSH ONE (19:00)
[2018-01-27] MEDS ORDERED: ESTR1TAB PO (19:16)
[2018-01-27] MEDS ORDERED: OXYB10TA PO (19:34)
[2018-01-27] MEDS ORDERED: MSM1000C PO (19:34)
[2018-01-27] MEDS ORDERED: VITA10002 PO (19:34)
[2018-01-27] MEDS ORDERED: FLUO20CA12 PO (19:34)
[2018-01-27] MEDS ORDERED: VITATAB11 PO (19:34)
[2018-01-27] MEDS ORDERED: CALC1TAB53 PO (19:34)
[2018-01-27] MEDS ORDERED: HYDR-3366 PO (19:34)
[2018-01-27] MEDS ORDERED: ASPI81TA16 PO (19:34)
[2018-01-27] MEDS ORDERED: GLUCCAP5 PO (19:34)
[2018-01-27] MEDS ORDERED: CHOL400T17 PO (19:34)
[2018-01-27] MEDS ORDERED: MIRA50TA PO (19:34)
[2018-01-27] MEDS ORDERED: METO1TAB43 PO (19:34)
[2018-01-27] MEDS ORDERED: COQ1200C3 PO (19:34)
[2018-01-27] MEDS ORDERED: SELE200T17 PO (19:34)
[2018-01-27] MEDS ORDERED: [UNRECOGNIZED DRUG - CODE] PO (19:34)
[2018-01-27] MEDS ORDERED: CRAN500C9 PO (19:34)
--- NOTE | 2018-01-27 20:19 | RADRPT ---
EXAM DATE: 01/27/2018 7:35 PM EDT AGE/SEX: 77 years / Female INDICATIONS: Pain. CLINICAL DATA: This is the patient's initial encounter. Patient reports that signs and symptoms have been present for 4 - 6 days and indicates a pain score of 10/10. MEDICAL/SURGICAL HISTORY: . Cerebrovascular disease. Cardiovascular disease Hypertension.Diabet es . Tubal ligation. Hysterectomy. COMPARISON: No prior exams available for comparison. FINDINGS: There is no evidence of acute fracture. Bony mineralization is normal. There is mild osteoarthritis i nvolving the acromioclavicular joint. The glenohumeral joint is intact. There are post surgical michelle nges in the cervical spine with anterior and posterior fusion CONCLUSION: Mild osteoarthritis as described above. Electronically signed by: Colby Panchal MD 01/27/2018 8:18 PM EDT
[2018-01-27] MEDS ORDERED: KETOROLAC TROMETHAMINE 30 MG/ML (IVP) VIAL IV PUSH ONE (20:30)
--- NOTE | 2018-01-27 21:15 | RADRPT ---
EXAM DATE: 01/27/2018 9:02 PM EDT AGE/SEX: 77 years / Female INDICATIONS: Neck pain. CLINICAL DATA: This is the patient's initial encounter. Patient reports that signs and symptoms have been present for 1 day and indicates a pain score of 5/10. MEDICAL/SURGICAL HISTORY: Stroke. Cardiovascular disease. Hypertension. None. RADIATION DOSE: 23.80 CTDI (mGy) ; Patient body habitus COMPARISON: No prior exams available for comparison. TECHNIQUE: Contiguous axial images were obtained using helical multirow detector technique. The vol umetric data was post-processed with multiplanar reconstruction in oblique axial, sagittal, and coron al planes. Using automated exposure control and adjustment of the mA and/or kV according to patient s ize, radiation dose was kept as low as reasonably achievable to obtain optimal diagnostic quality chucky ges. DICOM format image data is available electronically for review and comparison. FINDINGS: CT of the cervical spine was performed in sagittal and axial planes. There is straightening of the no rmal cervical lordosis which may be secondary positioning or spasm. No focal areas of marrow replacem ent are identified. The craniocervical junction appears normal. Axial images were performed from C2-C 3 through C7-T1. There is anterior cervical fusion with a plate anteriorly from C4-C7. There is face t fusion from C4 to C6. C2-C3: There is no significant spinal canal stenosis. There is severe facet arthritis on the right. C3-C4: There is severe facet arthritis on the left. There is no significant spinal canal stenosis. C4-C5: Postsurgical changes as above. There is mild neural foraminal narrowing bilaterally. C5-C6: Postsurgical changes as above. There is no significant spinal canal stenosis. There is mild l eft sided neural foraminal narrowing. C6-C7: Postsurgical changes as above. There is no significant spinal canal stenosis. C7-T1: No significant abnormalities identified. CONCLUSION: 1. Extensive postsurgical changes without recurrent disc protrusion or stenosis. Foraminal narrowing as above Electronically signed by: Colby Panchal MD 01/27/2018 9:13 PM EDT
[2018-01-27 21:30] VITALS: BP 135/67; PULSE 52; RESP 20; O2SAT 96
[2018-01-27] MEDS ORDERED: ROBA500T PO (21:31)
[2018-01-27] MEDS ORDERED: MEDR4PAK PO (21:31)
== END 2018-01-27 22:00 | disposition home or self-care (01) ==
LOC: NEPC 15:53
DX: M25.511 Pain in right shoulder (principal); M62.838 Other muscle spasm; I10 Essential (primary) hypertension; E78.00 Pure hypercholesterolemia, unspecified
CPT/HCPCS: 72125; 73030; 96372; 96374; 96375; 99284; J1885; J2270; J2360

== ENCOUNTER 2018-07-05 12:34 | Inpatient (IN) ==
[2018-07-05] MEDS ORDERED: Acetaminophen 325 MG Tablet PO ONE (12:53)
--- NOTE | 2018-07-05 13:06 | ED ---
HPI General Chief complaint: Weakness Stated complaint: Gen Weakness Time Seen by Provider: 07/05/18 12:37 Source: patient Mode of arrival: EMS Limitations: physical limitation History of Present Illness HPI Narrative: The patient is a 77-year-old female who presents to the emergency department via EMS from home for generalized weakness. The patient apparently has had 3-4 weeks of generalized weakness, has been homebound and lying in bed with inability to ambulate. The patient states she has been unable to perform her ADLs including showering, getting to the bathroom , and cooking. The patient states she had home health care, did have some benefit from the counselor, but has been nonambulatory for 3-4 weeks despite trying to use a walker. The patient was seen in the emergency department 2 weeks ago for leg pain after a fall, had a negative x-ray at that time and was discharged home. The patient was then seen in the emergency department 1 week ago for generalized weakness and had a negative workup and was subsequently discharged home. The patient apparently contacted her physician, Dr. Deedee Ferreira, who advised her to call the EMS and come to the emergency department for admission for generalized weakness. I had a discussion with the patient whether she had been in contact with her physician in regards to a physical workup, physical exam, or possible outpatient placement for physical therapy/ inpatient rehab. The patient states she has not been seen by her physician because she has been homebound for the last 3-4 weeks. The patient complains of diffuse body aches from the hips inferiorly. 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 She denies any chest pain, shortness of breath, nausea, vomiting, abdominal pain , or dysuria. MD Complaint: Reports generalized weakness Onset (ago): week(s) Duration: constant and progressively worsening Location: Reports generalized Migration: Reports descending Severity: moderate Severity scale (1-10): 7 Quality: Reports aching and dull Relieving factors: none Exacerbating factors: none Associated symptoms: Reports myalgias Related Data Home Medications Medication Instructions Recorded Confirmed aspirin 81 mg PO DAILY 06/20/18 07/05/18 estradiol 1 mg PO 2XWEEK 06/20/18 07/05/18 fluoxetine 20 mg PO DAILY 06/20/18 07/05/18 isosorbide mononitrate 30 mg PO DAILY 06/20/18 07/05/18 lisinopril-hydrochlorothiazide 0.25 tab PO DAILY 06/20/18 07/05/18 pantoprazole 40 mg PO DAILY 06/20/18 07/05/18 simvastatin 40 mg PO QPM 06/20/18 07/05/18 Lactobac no.41-Bifidobact no.7 1 cap PO BID 07/05/18 07/05/18 [Probiotic-10] ascorbic acid (vitamin C) [Vitamin 500 mg PO BID 07/05/18 07/05/18 C With Gloria Hips] cholecalciferol (vitamin D3) 400 unit PO DAILY 07/05/18 07/05/18 [Vitamin D3] clonazepam [Klonopin] 0.5 mg PO BID 07/05/18 07/05/18 coenzyme Q10 [Co Q-10] 200 mg PO BID 07/05/18 07/05/18 cranberry 500 mg PO DAILY 07/05/18 07/05/18 cyanocobalamin (vitamin B-12) 1,000 mcg PO DAILY 07/05/18 07/05/18 [Vitamin B-12] gabapentin 100 mg PO TID 07/05/18 07/05/18 glucosamine-chondroitin 1 tab PO BID 07/05/18 07/05/18 hydrocodone-acetaminophen [[place]] 1 tab PO Q6H 07/05/18 07/05/18 methylsulfonylmethane [MSM] 1,000 mg PO DAILY 07/05/18 07/05/18 metoprolol succinate 100 mg PO DAILY 07/05/18 07/05/18 mirabegron [Myrbetriq] 50 mg PO DAILY 07/05/18 07/05/18 multivit,Ca,thmz-QY-yrpgws-lut 1 tab PO DAILY 07/05/18 07/05/18 [Complete] nitroglycerin 0.4 mg SUBLINGUAL Q5-15M PRN 07/05/18 07/05/18 omega-3 fatty acids 1,000 mg PO QID 07/05/18 07/05/18 oxybutynin chloride 10 mg PO DAILY 07/05/18 07/05/18 selenium 200 mcg PO DAILY 07/05/18 07/05/18 temazepam [Restoril] 30 mg PO HS PRN 07/05/18 07/05/18 tizanidine 4 mg PO Q6H 07/05/18 07/05/18 vitamin B complex 1 tab PO DAILY 07/05/18 07/05/18 vitamin E 400 unit PO DAILY 07/05/18 07/05/18 Allergies Allergy/AdvReac Type Severity Reaction Status Date / Time No Known Allergies Allergy Verified 07/05/18 18:26 Review of Systems ROS: all other systems reviewed are negative [facility] Social History Social History Substance History: No History of Abuse Smoking Status: Never smoker How Often Do You Have a Drink Containing Alcohol: Never Recent Travel in [facility] within the Last 8 Weeks: No Recent Out of Country Travel within the Last 8 Weeks: No Exam Narrative Exam Narrative: GENERAL: Awake, alert, 77-year-old female appears her stated age and is in no acute respiratory distress. Patient is tearful during the examination. SKIN: Focused skin assessment warm/dry. HEAD: Atraumatic. Normocephalic. EYES: Pupils equal and round. No scleral icterus. No injection or drainage. ENT: No nasal bleeding or discharge. Mucous membranes pink and moist. NECK: Trachea midline. No JVD. CARDIOVASCULAR: Regular rate and rhythm. No murmur appreciated. RESPIRATORY: No accessory muscle use. Clear to auscultation. Breath sounds equal bilaterally. GASTROINTESTINAL: Abdomen soft, obese, no rebound tenderness. Back: No obvious sacral decubitus ulcerations or skin breakdown. MUSCULOSKELETAL: Lymphedema of the lower extremities noted bilaterally. Tenderness over both ankles and calves but no erythema noted. Patient is able to flex the left hip and left knee, limited range of motion with the right lower extremity with flexion of the right hip and right knee. Mild atrophy of the right hand noted but she is able to flex and extend the digits. Full range of motion left upper extremity. NEUROLOGICAL: Awake and alert. No obvious cranial nerve deficits. Motor grossly within normal limits. Normal speech. PSYCHIATRIC: Slightly flat affect. Course Initial Documented Vital Signs Temperature 99.2 F 07/05/18 12:45 Pulse Rate 58 L 07/05/18 12:45 Respiratory Rate 18 07/05/18 12:45 Blood Pressure 137/63 07/05/18 12:45 Pulse Oximetry 98 07/05/18 12:45 Last Documented Vital Signs Temperature 97.9 F 07/06/18 17:20 Pulse Rate 60 07/06/18 17:20 Respiratory Rate 16 07/06/18 17:20 Blood Pressure 133/66 07/06/18 17:20 Pulse Oximetry 95 07/06/18 17:20 Medical Decision Making MDM Narrative Medical decision making narrative: IV was established, labs are drawn and sent, and the patient was placed on cardiac telemetry monitoring and continuous pulse oximetry monitoring. Chest tray was obtained to rule out infiltrate. UA was sent to lab. CT of the brain was obtained to rule out subdural hemorrhage. CPK and sed rate were sent to lab. I tried to call the patient's physician, Dr. Deedee Ferreira at the number she left [phone] at 12:59 PM, however, there was no answer. CT reveals no subdural hemorrhage. UA is unremarkable. Sodium is normal. I had a discussion with case management and evaluation for physical therapy was placed and case management will discuss the patient with proximal inpatient rehab to see if the patient qualifies for inpatient rehabilitation. If not the patient will be boarded as outpatient with case management evaluation for rehabilitation placement. Medical Screen Exam Complete: Yes Emergency Medical Condition: Yes Lab Data Lab results reviewed: Yes I reviewed the patient's lab results. Result diagrams: 07/05/18 13:28 07/05/18 13:28 Lab Results 07/05/18 07/05/18 07/05/18 Range/Units 13:28 13:28 13:28 WBC 7.4 (4.0-11.0) th/mm3 RBC 3.96 L (4.00-5.30) mil/mm3 Hgb 12.7 (11.6-15.3) gm/dL Hct 38.3 (35.0-46.0) % MCV 96.7 (80.0-100.0) fL MCH 32.2 (27.0-34.0) pg MCHC 33.3 (32.0-36.0) % RDW 13.4 (11.6-17.2) % Plt Count 191 (150-450) th/mm3 MPV 7.8 (7.0-11.0) fL Neut % (Auto) 67.5 (16.0-70.0) % Lymph % (Auto) 21.6 (9.0-44.0) % [place] % (Auto) 8.6 H (0.0-8.0) % Eos % (Auto) 1.6 (0.0-4.0) % Baso % (Auto) 0.7 (0.0-2.0) % Neut # (Auto) 5.0 (1.8-7.7) th/mm3 Lymph # (Auto) 1.6 (1.0-4.8) th/mm3 Anderson # (Auto) 0.6 (0.0-0.9) th/mm3 Eos # (Auto) 0.1 (0.0-0.4) th/mm3 Baso # (Auto) 0.1 (0.0-0.2) th/mm3 WBC Differential . Differential Comment Auto diff final ESR 14 (0-30) mm/hr Sodium 140 (136-145) meq/L Potassium 4.6 (3.5-5.1) meq/L Chloride 106 (98-107) meq/L Carbon Dioxide 27.9 (21.0-32.0) meq/L Anion Gap 6 (5-15) meq/L BUN 15 (7-18) mg/dL Creatinine 0.77 (0.50-1.00) mg/dL Estimated GFR 73 L (>89) mL/min Random Glucose 126 H (74-106) mg/dL Calcium 9.0 (8.5-10.1) mg/dL Magnesium 1.9 (1.5-2.5) mg/dL Total Bilirubin 0.3 (0.2-1.0) mg/dL AST 21 (15-37) U/L ALT 22 (10-53) U/L Alkaline Phosphatase 33 L (45-117) U/L Total Creatine Kinase 68 (26-192) U/L Troponin I Less than 0.02 L (0.02-0.05) ng/mL Total Protein 6.6 (6.4-8.2) g/dL Albumin 3.5 (3.4-5.0) g/dL TSH 1.040 (0.358-3.740) uIU/mL Urine Color (Yellw/Straw) Urine Clarity (Clear) Urine pH (5.0-8.5) Ur Specific [place] (1.002-1.035) Urine Protein (Neg-Trace) mg/dL Urine Glucose (UA) (Negative) mg/dL Urine Ketones (Negative) mg/dL Urine Occult Blood (Negative) Urine Nitrate (Negative) Urine Bilirubin (Negative) Urine Urobilinogen (Less than 2) mg/dL Ur Leukocyte Esterase (Negative) Urine RBC (0-3) /hpf Urine WBC (0-5) /hpf Micro UA Comment Ur Microscopic Review Urine Culture Comments 07/05/18 Range/Units 15:47 WBC (4.0-11.0) th/mm3 RBC (4.00-5.30) mil/mm3 Hgb (11.6-15.3) gm/dL Hct (35.0-46.0) % MCV (80.0-100.0) fL MCH (27.0-34.0) pg MCHC (32.0-36.0) % RDW (11.6-17.2) % Plt Count (150-450) th/mm3 MPV (7.0-11.0) fL Neut % (Auto) (16.0-70.0) % Lymph % (Auto) (9.0-44.0) % [place] % (Auto) (0.0-8.0) % Eos % (Auto) (0.0-4.0) % Baso % (Auto) (0.0-2.0) % Neut # (Auto) (1.8-7.7) th/mm3 Lymph # (Auto) (1.0-4.8) th/mm3 [place] # (Auto) (0.0-0.9) th/mm3 Eos # (Auto) (0.0-0.4) th/mm3 Baso # (Auto) (0.0-0.2) th/mm3 WBC Differential Differential Comment ESR (0-30) mm/hr Sodium (136-145) meq/L Potassium (3.5-5.1) meq/L Chloride (98-107) meq/L Carbon Dioxide (21.0-32.0) meq/L Anion Gap (5-15) meq/L BUN (7-18) mg/dL Creatinine (0.50-1.00) mg/dL Estimated GFR (>89) mL/min Random Glucose (74-106) mg/dL Calcium (8.5-10.1) mg/dL Magnesium (1.5-2.5) mg/dL Total Bilirubin (0.2-1.0) mg/dL AST (15-37) U/L ALT (10-53) U/L Alkaline Phosphatase (45-117) U/L Total Creatine Kinase (26-192) U/L Troponin I (0.02-0.05) ng/mL Total Protein (6.4-8.2) g/dL Albumin (3.4-5.0) g/dL TSH (0.358-3.740) uIU/mL Urine Color Yellow (Yellw/Straw) Urine Clarity Hazy H (Clear) Urine pH 6.0 (5.0-8.5) Ur Specific [place] 1.015 (1.002-1.035) Urine Protein Negative (Neg-Trace) mg/dL Urine Glucose (UA) Negative (Negative) mg/dL Urine Ketones Negative (Negative) mg/dL Urine Occult Blood Negative (Negative) Urine Nitrate Negative (Negative) Urine Bilirubin Negative (Negative) Urine Urobilinogen Less than 2 (Less than 2) mg/dL Ur Leukocyte Esterase Negative (Negative) Urine RBC Less than 1 (0-3) /hpf Urine WBC Less than 1 (0-5) /hpf Micro UA Comment Culture not ind Ur Microscopic Review Not Reportable Urine Culture Comments Culture not ind Imaging Data Radiologist's impression: Chest X-Ray 07/05/18 12:53 CONCLUSION: Cardiomegaly and chronic interstitial changes. No acute abnormality. Head CT 07/05/18 12:53 CONCLUSION: 1. Punctate old lacunar infarct in the caudate on the left. 2. Microvascular ischemic demyelinative change. 3. Stable compared to prior dated 11/07/2017. . Discharge Plan Discharge Disposition Patient Disposition: 30 Still Patient Discharge Condition Condition: Stable Discharge Details Diagnosis: Generalized weakness, Debility, unspecified Physicians Team ED Provider: Dariusz Bunch Primary Care Provider: Deedee Ferreira Attending Provider: Kings Gabriel Status ED Status: Left Department Discharge Information Discharge Date/Time: 07/06/18 18:22
[2018-07-05] MEDS ORDERED: Morphine Inj 4 MG/ML Vial IV.PUSH ONE (13:28)
[2018-07-05 13:50] LABS: Albumin 3.5 g/dL (3.4-5.0); Anion Gap 6 meq/L (5-15); Aspartate Aminotransferase 21 U/L (15-37); Blood Urea Nitrogen 15 mg/dL (7-18); Carbon Dioxide 27.9 meq/L (21.0-32.0); Chloride 106 meq/L (98-107); Glomerular Filtration Rate 73 mL/min (>89); Glucose,Random 126 mg/dL (74-106); Magnesium 1.9 mg/dL (1.5-2.5); Potassium 4.6 meq/L (3.5-5.1); Sodium 140 meq/L (136-145)
--- NOTE | 2018-07-05 13:54 | CT ---
EXAM DATE: 07/05/2018 1:36 PM EST AGE/SEX: 77 years / Female INDICATIONS: Patient complains of weakness. CLINICAL DATA: This is the patient's initial encounter. Patient reports that signs and symptoms have been present for 1 day and indicates a pain score of 0/10. MEDICAL/SURGICAL HISTORY: Hypertension. Hysterectomy. RADIATION DOSE: 35.47 CTDI (mGy) [place] [facility] [place]. . TECHNIQUE: CT of the head without contrast. Using automated exposure control and adjustment of the mA and/or kV according to patient size, radiation dose was kept as low as reasonably achievable to ob tain optimal diagnostic quality images. DICOM format image data is available electronically for revi ew and comparison. FINDINGS: Cerebrum: The ventricles are normal for age. There is decreased attenuation the periventricular whit e matter consistent with microvascular ischemic demyelinative change. There is a punctate old lacunar infarct involving the left caudate nucleus. No evidence of midline shift, mass lesion, hemorrhage o r acute infarction. No extraaxial fluid collections are seen. Posterior Fossa: The cerebellum and brainstem are intact. The 4th ventricle is midline. The cerebe llopontine angle is unremarkable. Extracranial: The visualized portion of the orbits is intact. Skull: The calvaria is intact. No evidence of skull fracture. CONCLUSION: 1. Punctate old lacunar infarct in the caudate on the left. 2. Microvascular ischemic demyelinative change. 3. Stable compared to prior dated 11/07/2017. . Electronically signed by: Kings Becker MD 07/05/2018 1:53 PM EST
--- NOTE | 2018-07-05 13:55 | XR ---
EXAM DATE: 07/05/2018 1:18 PM EST AGE/SEX: 77 years / Female INDICATIONS: Shortness of breath and weakness. CLINICAL DATA: This is the patient's initial encounter. Patient reports that signs and symptoms have been present for 1 day and indicates a pain score of 0/10. MEDICAL/SURGICAL HISTORY: None. None. [place] [facility] [place]. . FINDINGS: The heart appears mildly enlarged. There are chronic interstitial changes within the parenchyma. The mediastinal contours are within normal limits. The exam is stable compared to previous of 06/27/2018. There is been previous fusion of the cervical spine. CONCLUSION: Cardiomegaly and chronic interstitial changes. No acute abnormality. Electronically signed by: Kings Becker MD 07/05/2018 1:53 PM EST
[2018-07-05 13:58] LABS: Alanine Aminotransferase 22 U/L (10-53); Alkaline Phosphatase 33 U/L (45-117); Total Protein 6.6 g/dL (6.4-8.2)
[2018-07-05 13:59] LABS: Creatine Kinase 68 U/L (26-192)
[2018-07-05 14:17] LABS: Baso # (Auto) 0.1 th/mm3 (0.0-0.2); Baso % (Auto) 0.7 % (0.0-2.0); Eos # (Auto) 0.1 th/mm3 (0.0-0.4); Eos % (Auto) 1.6 % (0.0-4.0); Hematocrit 38.3 % (35.0-46.0); Hemoglobin 12.7 gm/dL (11.6-15.3); Lymph # (Auto) 1.6 th/mm3 (1.0-4.8); Lymph % (Auto) 21.6 % (9.0-44.0); Mean Corpuscular HGB Conc 33.3 % (32.0-36.0); Mean Corpuscular Hemoglobin 32.2 pg (27.0-34.0); Mean Corpuscular Volume 96.7 fL (80.0-100.0); Mean Platelet Volume 7.8 fL (7.0-11.0); Mono # (Auto) 0.6 th/mm3 (0.0-0.9); Mono % (Auto) 8.6 % (0.0-8.0); Neut % (Auto) 67.5 % (16.0-70.0); Platelet Count 191 th/mm3 (150-450); Red Blood Count 3.96 mil/mm3 (4.00-5.30); Red Cell Distribution Width 13.4 % (11.6-17.2); White Blood Count 7.4 th/mm3 (4.0-11.0)
[2018-07-05 16:10] LABS: Bilirubin,Urine Negative (Negative); Clarity,Urine Hazy (Clear); Color,Urine Yellow (Yellw/Straw); Glucose,Urine (UA) Negative (Negative); Leukocyte Esterase,Urine Negative (Negative); Nitrite,Urine Negative (Negative); Specific Gravity,Urine 1.015 (1.002-1.035)
[2018-07-05] MEDS: Potassium Chloride Inj 10 MEQ in Sod Chloride 0.9% Inj 1,000 ML IV.CONT SCH (17:21)
[2018-07-06] MEDS: Potassium Chloride Inj 10 MEQ in Sod Chloride 0.9% Inj 1,000 ML IV.CONT SCH ×2 (04:11→23:42)
--- NOTE | 2018-07-06 12:09 | ECG ---
Date Performed: 07/05/2018 Time Performed: 14:34:37 PTAGE: 77 years EKG: SINUS BRADYCARDIA WITH OCCASIONAL SUPRAVENTRICULAR PREMATURE COMPLEXES BORDERLINE ECG Since the PREVIOUS TRACING , no significant change noted PREVIOUS TRACIN06/20/2018 12.22 DOCTOR: Colby Lares Interpretating Date/Time 07/06/2018 12:08:04
[2018-07-06] MEDS ORDERED: Nitroglycerin SL (Override) 0.4 MG Tab SL PRN (15:23)
--- NOTE | 2018-07-06 15:27 | P.CON ---
History of Present Illness Service: [facility] Consult date: 07/06/18 Reason for Consult: weakness, placement Primary Care Provider: Deedee Ferreira MD Chief Complaint: weakness History of Present Illness: 77-year-old female with history of HTN, HLD, GERD, arthritis, presented to the ED on 07/05 for at least one month history of generalized weakness. Reportedly the patient has been mostly homebound, restricted to her bed, with inability to ambulate. She has had difficulty caring for herself including ADLs such as bathing, using the restroom, cooking, cleaning. She did have some home health care at some point. Patient has had multiple ER visits within the past few months. She contacted her PCP who advised her to come to the ED for admission for generalized weakness. Workup in the ED has been unremarkable, however is an unsafe discharge home and has been unable to arrange for placement at this time. The patient will be bedded outpatient until placement can be arranged. PMF - History History Provided By: Patient - Medical History Medical History: Medical History (Last Reviewed 07/06/18 @ 15:21 by Isabel Costa) History of morbid obesity Arthritis Elevated cholesterol GERD (gastroesophageal reflux disease) HTN (hypertension) History of hysterectomy - Social History I have reviewed the patient's Social History: Yes - Tobacco History Tobacco Use In Past 30 Days: No Smoking Status: Never smoker - Alcohol History How Often Do You Have a Drink Containing Alcohol: Never - Substance Use History Substance History: No History of Abuse - Travel History Recent Travel in the [place] Within the Last 8 Weeks: No Recent Travel Out of the Country Within the Last 8 Weeks: No - Immunization History Tetanus Immunization: <5 Years Medications and Allergies Active Medications: Active Medications Potassium Chloride 10 meq/ (Sodium Chloride) 1,005 mls @ 100 mls/hr IV.CONT .Q10H3M [facility] Last Infusion: 07/06/18 07:00 Dose: 0 mls/hr Sodium Chloride (Ns Flush) 2 ml IV.FLUSH PRN PRN PRN Reason: FLUSH AFTER USING IV ACCESS Last Admin: 07/05/18 14:29 Dose: 2 ml Allergies Allergy/AdvReac Type Severity Reaction Status Date / Time No Known Allergies Allergy Verified 07/05/18 18:26 Home Medications Medication Instructions Recorded Confirmed Type aspirin 81 mg PO DAILY 06/20/18 07/05/18 History estradiol 1 mg PO 2XWEEK 06/20/18 07/05/18 History fluoxetine 20 mg PO DAILY 06/20/18 07/05/18 History isosorbide mononitrate 30 mg PO DAILY 06/20/18 07/05/18 History lisinopril-hydrochlorothiazide 0.25 tab PO DAILY 06/20/18 07/05/18 History pantoprazole 40 mg PO DAILY 06/20/18 07/05/18 History simvastatin 40 mg PO QPM 06/20/18 07/05/18 History Lactobac no.41-Bifidobact no.7 1 cap PO BID 07/05/18 07/05/18 History [Probiotic-10] ascorbic acid (vitamin C) [Vitamin 500 mg PO BID 07/05/18 07/05/18 History C With Gloria Hips] cholecalciferol (vitamin D3) 400 unit PO DAILY 07/05/18 07/05/18 History [Vitamin D3] clonazepam [Klonopin] 0.5 mg PO BID 07/05/18 07/05/18 History coenzyme Q10 [Co Q-10] 200 mg PO BID 07/05/18 07/05/18 History cranberry 500 mg PO DAILY 07/05/18 07/05/18 History cyanocobalamin (vitamin B-12) 1,000 mcg PO DAILY 07/05/18 07/05/18 History [Vitamin B-12] gabapentin 100 mg PO TID 07/05/18 07/05/18 History glucosamine-chondroitin 1 tab PO BID 07/05/18 07/05/18 History hydrocodone-acetaminophen [[place]] 1 tab PO Q6H 07/05/18 07/05/18 History methylsulfonylmethane [MSM] 1,000 mg PO DAILY 07/05/18 07/05/18 History metoprolol succinate 100 mg PO DAILY 07/05/18 07/05/18 History mirabegron [Myrbetriq] 50 mg PO DAILY 07/05/18 07/05/18 History multivit,Ca,pgrw-WZ-tpmtbq-lut 1 tab PO DAILY 07/05/18 07/05/18 History [Complete] nitroglycerin 0.4 mg SUBLINGUAL Q5-15M PRN 07/05/18 07/05/18 History omega-3 fatty acids 1,000 mg PO QID 07/05/18 07/05/18 History oxybutynin chloride 10 mg PO DAILY 07/05/18 07/05/18 History selenium 200 mcg PO DAILY 07/05/18 07/05/18 History temazepam [Restoril] 30 mg PO HS PRN 07/05/18 07/05/18 History tizanidine 4 mg PO Q6H 07/05/18 07/05/18 History vitamin B complex 1 tab PO DAILY 07/05/18 07/05/18 History vitamin E 400 unit PO DAILY 07/05/18 07/05/18 History Physical Exam Vital signs: Vital Signs 07/05/18 17:15 07/05/18 20:52 07/06/18 00:31 Pulse Rate 56 L 84 75 Respiratory Rate 18 18 Blood Pressure 154/72 H 142/78 H 129/72 Pulse Oximetry 95 95 07/06/18 05:57 07/06/18 12:00 07/06/18 12:57 Pulse Rate 65 59 L 65 Respiratory Rate 16 18 18 Blood Pressure 145/70 H 175/77 H 168/74 H Pulse Oximetry 98 96 97 Intake & Output 07/05/18 07/06/18 07/06/18 18:59 06:59 18:59 Intake Total 1005 / 1005 Output Total 800 / 800 Balance 205 / 205 Weight 111.13 kg Intake: IV 1005 / 1005 KCl Inj 10 MEQ In NS Inj 1,000 1005 / 1005 ML @ 100 mls/hr IV.CONT .Q10H3M [facility] Rx#:[id number] Output: Urine 800 / 800 Results - Labs CBC & Chem 7: 07/05/18 13:28 07/05/18 13:28 Labs: Laboratory Results - last 24 hr 07/05/18 15:47 Urine Color Yellow Urine Clarity Hazy H Urine pH 6.0 Ur Specific [place] 1.015 Urine Protein Negative Urine Glucose (UA) Negative Urine Ketones Negative Urine Occult Blood Negative Urine Nitrate Negative Urine Bilirubin Negative Urine Urobilinogen Less than 2 Ur Leukocyte Esterase Negative Urine RBC Less than 1 Urine WBC Less than 1 Micro UA Comment Culture not ind Ur Microscopic Review Not Reportable Urine Culture Comments Culture not ind - Imaging Chest X-Ray 07/05/18 12:53 CONCLUSION: Cardiomegaly and chronic interstitial changes. No acute abnormality. Head CT 07/05/18 12:53 CONCLUSION: 1. Punctate old lacunar infarct in the caudate on the left. 2. Microvascular ischemic demyelinative change. 3. Stable compared to prior dated 11/07/2017. . Assessment and Plan - Plan 77-year-old female with history of HTN, HLD, GERD, arthritis, presented to the ED on 07/05 for at least one month history of generalized weakness, difficulty with ADLs, inability to care for self, homebound. The patient will be bedded outpatient until placement can be arranged. Generalized Weakness, Difficulty with ADLs, Inability to Care for Self: suspect multifactorial with advanced age, arthritis, obesity, deconditioning. -CBC, CMP, troponin, TSH, UA, CXR all unremarkable -Head CT with punctate old lacunar infarct in the caudate on the left; microvascular ischemic demyelinative change, stable exam -Consult PT/OT -Case management consult to assist with placement Hypertension/Hyperlipidemia: chronic -continue patient's lisinopril, hctz, metoprolol, imdur, statin -monitor vitals, adjust antihypertensives as needed Hx of CVA: chronic -continue aspirin, statin -PT/OT consult DVT Prophylaxis: Lovenox
[2018-07-06] MEDS: Gabapentin 100 MG Capsule PO SCH (18:41)
[2018-07-06] MEDS ORDERED: [UNRECOGNIZED DRUG - MIXTURE] PO SCH (21:00)
[2018-07-06] MEDS ORDERED: [UNRECOGNIZED DRUG - REMARK] PO SCH (21:00)
[2018-07-06] MEDS: Enoxaparin Inj 40 MG/0.4 ML Syringe SQ SCH (21:57)
[2018-07-06] MEDS: Ascorbic Acid 500 MG Tablet PO SCH (21:57)
[2018-07-06] MEDS: ALPRAZolam 0.25 MG Tablet PO PRN (22:39)
[2018-07-07] MEDS: Potassium Chloride Inj 10 MEQ in Sod Chloride 0.9% Inj 1,000 ML IV.CONT SCH ×3 (05:44→15:16)
[2018-07-07] MEDS: Ascorbic Acid 500 MG Tablet PO SCH ×2 (08:52→20:24)
[2018-07-07] MEDS: Gabapentin 100 MG Capsule PO SCH ×3 (08:52→18:14)
[2018-07-07] MEDS: ALPRAZolam 0.25 MG Tablet PO PRN (08:52)
[2018-07-07] MEDS: FLUoxetine 20 MG Capsule PO SCH (08:53)
[2018-07-07] MEDS: Isosorbide Mononitrate 30 MG ER 24HR Tablet (Imdur) PO SCH (08:55)
[2018-07-07] MEDS ORDERED: PT:MYRBETRIQ 50 MG PO SCH (09:00)
[2018-07-07] MEDS ORDERED: OXYBUTYNIN CHLORIDE 10 MG PO SCH (09:00)
[2018-07-07] MEDS: Vitamin B Complex/Vitamin C Tablet PO SCH (10:16)
[2018-07-07] MEDS: Tolterodine Tartrate LA 4 MG Capsule PO SCH (10:16)
--- NOTE | 2018-07-07 14:25 | P.PNADD ---
Addendum to Inpatient Note Additional information: Ms. Valencia was admitted as 'bedded outpatient' for generalized weakness and inability to take care of herself. No acute medical concerns. Patient was seen our PA yesterday and I briefly saw patient today. We will peripherally follow this patient. We will not round on this patient everyday unless clinical situation changes to change her status to observation or in-patient.
[2018-07-07] MEDS: Enoxaparin Inj 40 MG/0.4 ML Syringe SQ SCH (20:24)
[2018-07-08] MEDS: Potassium Chloride Inj 10 MEQ in Sod Chloride 0.9% Inj 1,000 ML IV.CONT SCH ×3 (03:18→23:48)
[2018-07-08] MEDS: Ascorbic Acid 500 MG Tablet PO SCH ×2 (09:45→21:40)
[2018-07-08] MEDS: FLUoxetine 20 MG Capsule PO SCH (09:45)
[2018-07-08] MEDS: Gabapentin 100 MG Capsule PO SCH ×3 (09:45→18:27)
[2018-07-08] MEDS: Tolterodine Tartrate LA 4 MG Capsule PO SCH (09:46)
[2018-07-08] MEDS: Vitamin B Complex/Vitamin C Tablet PO SCH (09:47)
[2018-07-08] MEDS: Isosorbide Mononitrate 30 MG ER 24HR Tablet (Imdur) PO SCH (09:47)
[2018-07-08] MEDS: ALPRAZolam 0.25 MG Tablet PO PRN (13:14)
[2018-07-08] MEDS: Enoxaparin Inj 40 MG/0.4 ML Syringe SQ SCH (21:34)
[2018-07-09] MEDS: ALPRAZolam 0.25 MG Tablet PO PRN ×2 (01:31→21:45)
[2018-07-09] MEDS: Ascorbic Acid 500 MG Tablet PO SCH ×2 (10:37→21:42)
[2018-07-09] MEDS: Isosorbide Mononitrate 30 MG ER 24HR Tablet (Imdur) PO SCH (10:37)
[2018-07-09] MEDS: Gabapentin 100 MG Capsule PO SCH ×3 (10:37→18:09)
[2018-07-09] MEDS: FLUoxetine 20 MG Capsule PO SCH (10:37)
[2018-07-09] MEDS: Potassium Chloride Inj 10 MEQ in Sod Chloride 0.9% Inj 1,000 ML IV.CONT SCH (11:02)
[2018-07-09] MEDS: Vitamin B Complex/Vitamin C Tablet PO SCH (12:11)
[2018-07-09] MEDS: Tolterodine Tartrate LA 4 MG Capsule PO SCH (12:12)
[2018-07-09] MEDS: Enoxaparin Inj 40 MG/0.4 ML Syringe SQ SCH (21:40)
[2018-07-10] MEDS: Isosorbide Mononitrate 30 MG ER 24HR Tablet (Imdur) PO SCH (10:21)
[2018-07-10] MEDS: Gabapentin 100 MG Capsule PO SCH ×3 (10:22→18:30)
[2018-07-10] MEDS: FLUoxetine 20 MG Capsule PO SCH (10:23)
[2018-07-10] MEDS: Tolterodine Tartrate LA 4 MG Capsule PO SCH (10:23)
[2018-07-10] MEDS: Vitamin B Complex/Vitamin C Tablet PO SCH (10:23)
[2018-07-10] MEDS: Ascorbic Acid 500 MG Tablet PO SCH ×2 (11:09→22:18)
--- NOTE | 2018-07-10 13:14 | P.PNADD ---
Addendum to Inpatient Note Reason for Addendum: Additional Documentation Additional information: Pt complaining of pain and reports she takes Lortab 10/325 at home. Tramadol not helping her pain. Verified on [facility] and patient does have a prescription for Lortab. Will order.
[2018-07-10] MEDS: Acetaminophen 325 MG Tablet PO PRN (14:58)
[2018-07-10] MEDS: Enoxaparin Inj 40 MG/0.4 ML Syringe SQ SCH (22:18)
[2018-07-11] MEDS: FLUoxetine 20 MG Capsule PO SCH (09:55)
[2018-07-11] MEDS: Isosorbide Mononitrate 30 MG ER 24HR Tablet (Imdur) PO SCH (09:55)
[2018-07-11] MEDS: Tolterodine Tartrate LA 4 MG Capsule PO SCH (09:56)
[2018-07-11] MEDS: Gabapentin 100 MG Capsule PO SCH ×3 (09:56→18:50)
[2018-07-11] MEDS: Vitamin B Complex/Vitamin C Tablet PO SCH (09:56)
[2018-07-11] MEDS: Ascorbic Acid 500 MG Tablet PO SCH ×2 (09:56→21:31)
[2018-07-11] MEDS: ALPRAZolam 0.25 MG Tablet PO PRN (21:31)
[2018-07-11] MEDS: Enoxaparin Inj 40 MG/0.4 ML Syringe SQ SCH (21:31)
[2018-07-11] MEDS: Acetaminophen 325 MG Tablet PO PRN (21:44)
[2018-07-12] MEDS: Vitamin B Complex/Vitamin C Tablet PO SCH (08:53)
[2018-07-12] MEDS: Ascorbic Acid 500 MG Tablet PO SCH ×2 (08:54→20:14)
[2018-07-12] MEDS: Isosorbide Mononitrate 30 MG ER 24HR Tablet (Imdur) PO SCH (08:54)
[2018-07-12] MEDS: Tolterodine Tartrate LA 4 MG Capsule PO SCH (08:54)
[2018-07-12] MEDS: FLUoxetine 20 MG Capsule PO SCH (08:54)
[2018-07-12] MEDS: Gabapentin 100 MG Capsule PO SCH ×3 (08:54→18:29)
[2018-07-12] MEDS: Enoxaparin Inj 40 MG/0.4 ML Syringe SQ SCH (20:14)
[2018-07-13] MEDS: Ascorbic Acid 500 MG Tablet PO SCH (08:04)
[2018-07-13] MEDS: Vitamin B Complex/Vitamin C Tablet PO SCH (08:04)
[2018-07-13] MEDS: Gabapentin 100 MG Capsule PO SCH ×3 (08:04→17:46)
[2018-07-13] MEDS: Isosorbide Mononitrate 30 MG ER 24HR Tablet (Imdur) PO SCH (08:05)
[2018-07-13] MEDS: FLUoxetine 20 MG Capsule PO SCH (08:05)
[2018-07-13] MEDS: Tolterodine Tartrate LA 4 MG Capsule PO SCH (08:05)
--- NOTE | 2018-07-13 11:40 | P.PNADD ---
Addendum to Inpatient Note Reason for Addendum: Additional Documentation Additional information: Patient seen Has not complaints, no chest pain, shortness of breath. No facial droop, no slurred speech Has good 5/5 strength on bilateral biceps curl with both upper extremities 3/5 left hip flexor strength 2/5 right hip flexor strength Abdomen soft, nontender, nondistended [facility].
[2018-07-13] MEDS: ALPRAZolam 0.25 MG Tablet PO PRN (12:14)
[2018-07-13 12:25] VITALS: PULSE 58
[2018-07-13 16:13] VITALS: BP 135/63; RESP 16; TEMP 97.8; O2SAT 95
== END 2018-07-13 18:41 ==
LOC: NEPE 12:34 → NEDA 07-06 15:28 → N04 07-06 17:06 → NEPGCP 07-08 16:22
PROVIDERS: ADMIT Hospitalist; ATTEND Hospitalist